=== PATIENT | female | born 1955 | race Caucasian/White ===

== ENCOUNTER 2017-10-10 19:00 | Inpatient (IN) | payer OTHER, MEDICAID, MEDICARE ==
[~2017-10-10] VITALS: Ht 170.2 cm; Wt 80.2 kg
[2017-10-10 19:44] VITALS: BP 131/79; PULSE 113; RESP 20; TEMP 98.9
[2017-10-10] MEDS ORDERED: REMOVE OLD NICOTINE PATCH T-DERMAL PRN (20:00)
[2017-10-10] MEDS ORDERED: ALUMINUM/MAGNESIUM/SIMETH 30 ML CUP PO PRN (20:00)
[2017-10-10] MEDS ORDERED: MAGNESIUM HYDROXIDE SUSP 30 ML CUP PO PRN (20:00)
[2017-10-10] MEDS ORDERED: NICOTINE 21 MG/24 HR PATCH T-DERMAL PRN (20:00)
[2017-10-10] MEDS ORDERED: DEXTROSE 50% IN WATER 50 ML VIAL(D50) IV PUSH PRN (22:00)
[2017-10-10] MEDS ORDERED: FLUMAZENIL 0.5 MG/5 ML VIAL IV PUSH PRN (22:00)
[2017-10-10] MEDS ORDERED: LORazepam 1 MG TAB PO PRN (22:00)
[2017-10-10] MEDS ORDERED: LORazepam 2 MG/ML VIAL IM PRN ×4 (22:00)
[2017-10-10] MEDS ORDERED: GLUCAGON 1 MG/ML VIAL OTHER PRN (22:00)
[2017-10-10] MEDS ORDERED: LORazepam 2 MG TAB PO PRN (22:00)
[2017-10-11] MEDS: ACETAMINOPHEN 325 MG TAB PO PRN ×2 (00:42→06:46)
[2017-10-11] MEDS ORDERED: LOW DOSE INSULIN NOVOLOG SUPPLEMENTAL SCALE SQ SCH (08:00)
[2017-10-11 09:00] LABS: AUTOMATED NEUTROPHIL # 7.3 TH/MM3 (1.8-7.7); BASOPHIL % 0.3 % (0.0-2.0); EOSINOPHIL # 0.1 TH/MM3 (0-0.4); EOSINOPHIL % 0.7 % (0.0-4.0); HEMATOCRIT 48.3 % (35.0-46.0); HEMOGLOBIN 16.8 GM/DL (11.6-15.3); LYMPH % 27.4 % (9.0-44.0); LYMPHOCYTE # 3.1 TH/MM3 (1.0-4.8); MEAN CELL VOLUME 92.1 FL (80.0-100.0); MEAN CORPUSCULAR HEMOGLOBIN 32.1 PG (27.0-34.0); MEAN CORPUSCULAR HGB CONC 34.8 % (32.0-36.0); MEAN PLATELET VOLUME 7.9 FL (7.0-11.0); MONO % 8.1 % (0.0-8.0); MONOCYTE # 0.9 TH/MM3 (0-0.9); NEUT % 63.5 % (16.0-70.0); PLATELET COUNT 268 TH/MM3 (150-450); RED BLOOD COUNT 5.24 MIL/MM3 (4.00-5.30); RED CELL DISTRIBUTION WIDTH 13.4 % (11.6-17.2); WHITE BLOOD COUNT 11.4 TH/MM3 (4.0-11.0)
[2017-10-11 09:25] LABS: ALBUMIN 4.1 GM/DL (3.4-5.0); AST (GOT) 9 U/L (15-37); BICARBONATE 27.5 MEQ/L (21.0-32.0); BLOOD UREA NITROGEN 8 MG/DL (7-18); CALCIUM 9.5 MG/DL (8.5-10.1); CHLORIDE 96 MEQ/L (98-107); GLOMERULAR FILTRATION RATE 85 ML/MIN (>89); GLUCOSE,RANDOM 238 MG/DL (74-106); SODIUM (NA) 132 MEQ/L (136-145)
[2017-10-11 09:26] LABS: ALT (GPT) 16 U/L (10-53); CHOLESTEROL 194 MG/DL (120-200); TRIGLYCERIDES 192 MG/DL (42-150)
[2017-10-11 09:36] LABS: ALKALINE PHOSPHATASE 115 U/L (45-117); CHOLESTEROL/ HDL RATIO 4.67 RATIO; HDL CHOLESTEROL 41.5 MG/DL (40.0-60.0); LDL CHOLESTEROL 114 MG/DL (0-99); TOTAL BILIRUBIN ADULT 0.7 MG/DL (0.2-1.0); TOTAL PROTEIN 8.2 GM/DL (6.4-8.2)
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
[2017-10-11 16:54] LABS: HEMOGLOBIN A1C 11.2 % (4.3-6.0)
== END 2017-10-11 11:35 | disposition home or self-care (01) | DRG 882 ==
LOC: H250 19:00
PROVIDERS: ADMIT Psychiatry & Neurology Psychiatry; ATTEND Psychiatry & Neurology Psychiatry
DX: F43.25 Adjustment disorder with mixed disturbance of emotions and conduct (principal); F31.9 Bipolar disorder, unspecified; Z62.810 Personal history of physical and sexual abuse in childhood; Z72.0 Tobacco use
CPT/HCPCS: 80053; 80061; 82948; 83036; 84443; 85025; J1815

== ENCOUNTER 2017-12-30 17:18 | Inpatient (IN) | payer OTHER, MEDICAID, MEDICARE ==
[~2017-12-30] VITALS: Ht 167.6 cm; Wt 86.8 kg
[2017-12-30] VITALS (11 sets, daily range): BP systolic 82–118; BP diastolic 48–63; PULSE 74–145; RESP 16–20; TEMP 97.8; O2SAT 93–98
--- NOTE | 2017-12-30 17:28 | PD ---
HPI Chief Complaint: General Weakness Time Seen by Provider: 17:27 Travel History International Travel<30 days: No Contact w/Intl Traveler<30days: No Traveled to known affect area: No History of Present Illness HPI Patient is brought in by daughter, who states that the patient has been to [facility] multiple times in the past 2 months due to falls and brain bleeds. However she was offered rehab but declined it. Now over the past 2-3 days the patient has had progressively worsening and increasing generalized weakness and drowsiness and lethargy. Patient denies family also denies any fever, cough, rash, chest pain, abdominal pain, flank pain, back pain , nausea, vomiting or diarrhea. However the patient and the family both state that she spends most of her time sleeping and has not really eaten well over the past 3 days. 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 So she has started to take her medications away especially the ones that are sedatives such as Ambien trazodone and benzodiazepine as well which her psychiatrist is prescribing Dr. King PCP No known drug allergy Past medical history significant for tonsillectomy, recent falls with blunt head trauma, PFS Past Medical History Cardiovascular Problems: No Genitourinary: No Musculoskeletal: Yes (uses ww) Neurologic: No Reproductive: No Respiratory: No Past Surgical History Abdominal Surgery: No Cardiac Surgery: No Ear Surgery: No Endocrine Surgery: No Eye Surgery: No Genitourinary Surgery: No Gynecologic Surgery: No Oral Surgery: Yes (Tonsillectomy) Thoracic Surgery: Yes Social History Tobacco Use: Yes Substance Use: No Allergies-Medications (Allergen,Severity, Reaction): Coded Allergies: No Known Allergies (Verified Allergy, Unknown, 12/30/17) Uncoded Allergies: NKA (Allergy, Unknown, 04/30/03) NKDA (Allergy, Unknown, 04/30/03) Reported Meds & Prescriptions Reported Meds & Active Scripts Active Reported Clonazepam 2 Mg Tab 2 Mg PO TID Aripiprazole 15 Mg Tab 15 Mg PO DAILY Levetiracetam 500 Mg Tab 500 Mg PO BID Metformin (Metformin HCl) 1,000 Mg Tab 1,000 Mg PO BIDPC Trazodone (Trazodone HCl) 150 Mg Tablet 150 Mg PO BID [Setzima] 120 Mg PO DAILY Atorvastatin (Atorvastatin Calcium) 10 Mg Tab 10 Mg PO HS Ambien (Zolpidem Tartrate) 10 Mg Tab 10 Mg PO HS PRN Meclizine (Meclizine HCl) 12.5 Mg Tab 12.5 Mg PO BID PRN Review of Systems ROS Limitations: Altered Mental Status General / Constitutional: No: Fever Eyes: No: Visual changes HENT: No: Headaches Cardiovascular: No: Chest Pain or Discomfort Respiratory: No: Shortness of Breath Gastrointestinal: No: Abdominal Pain Genitourinary: No: Dysuria Musculoskeletal: No: Pain Skin: No Rash Neurologic: Positive: Weakness, Change in Mentation Psychiatric: No: Depression Endocrine: No: Polydipsia Hematologic/Lymphatic: No: Easy Bruising Physical Exam Exam Limitations: Altered Mental Status Narrative GENERAL: SKIN: Warm and dry. HEAD: Atraumatic. Normocephalic. EYES: Pupils equal and round. No scleral icterus. No injection or drainage. ENT: No nasal bleeding or discharge. Mucous membranes pink BUT dry oral mucosa NECK: Trachea midline. No JVD. CARDIOVASCULAR: Tachycardic rate and regular rhythm. RESPIRATORY: No accessory muscle use. Clear to auscultation. Breath sounds equal bilaterally. GASTROINTESTINAL: Abdomen soft, non-tender, nondistended. Hepatic and splenic margins not palpable. MUSCULOSKELETAL: Extremities without clubbing, cyanosis, or edema. No obvious deformities. NEUROLOGICAL: Patient is arousable but is very drowsy and somnolent. PSYCHIATRIC: Appropriate mood and affect; insight and judgment normal. Data Data Last Documented VS Vital Signs Date Time Temp Pulse Resp B/P (MAP) Pulse Ox O2 Delivery O2 Flow Rate FiO2 12/30/17 19:31 Nasal Cannula 3.00 12/30/17 19:21 86 16 97/63 (74) 96 12/30/17 17:23 97.8 Orders Orders Sepsis Workup Initiated (12/30/17 ) Electrocardiogram (12/30/17 17:29) Complete Blood Count With Diff (12/30/17:) Comprehensive Metabolic Panel (12/30/17 17) Prothrombin Time / Inr (Pt) (12/30/17 17:) Act Partial Throm Time (Ptt) (12/30/17 17:29) Lactic Acid Sepsis Protocol (12/30/17 17) Lipase (12/30/17) Ckmb (Isoenzyme) Profile (12/30/17:) Troponin I (12/30/17) Urinalysis - C+S If Indicated (12/30/17) Influenzae A/B Antigen (12/30/17) Blood Culture (12/30/17) Chest, Single Ap (12/30/17) Blood Glucose (12/30/17) Ecg Monitoring (12/30/17) Iv Access Insert/Monitor (12/30/17) Oximetry (12/30/17) Oxygen Administration (12/30/17) Ct Brain W/O Iv Contrast(Rout) (12/30/17) Sodium Chlorid 0.9% 500 Ml Inj (Ns 500 M (12/30/17 18:00) Cath For Specimen (12/30/17 17:51) Alcohol (Ethanol) (12/30/17 17:52) Salicylates (Aspirin) (12/30/17 17:52) Tylenol (Acetaminophen) (12/30/17 17:52) Drug Screen, Random Urine (12/30/17 17:52) Urinary Catheter Insert/Apply (12/30/17 18:44) Sodium Chlor 0.9% 1000 Ml Inj (Ns 1000 M (12/30/17 19:15) Sodium Chlor 0.9% 1000 Ml Inj (Ns 1000 M (12/30/17 19:15) Arterial Blood Gas (Abg) (12/30/17 19:03) Labs Laboratory Tests Test 12/30/17 17:40 12/30/17 18:38 12/30/17 19:15 White Blood Count 6.7 TH/MM3 Red Blood Count 4.68 MIL/MM3 Hemoglobin 14.9 GM/DL Hematocrit 42.4 % Mean Corpuscular Volume 90.5 FL Mean Corpuscular Hemoglobin 31.9 PG Mean Corpuscular Hemoglobin Concent 35.2 % Red Cell Distribution Width 12.6 % Platelet Count 305 TH/MM3 Mean Platelet Volume 8.9 FL Neutrophils (%) (Auto) 48.0 % Lymphocytes (%) (Auto) 42.5 % Monocytes (%) (Auto) 6.9 % Eosinophils (%) (Auto) 1.7 % Basophils (%) (Auto) 0.9 % Neutrophils # (Auto) 3.2 TH/MM3 Lymphocytes # (Auto) 2.8 TH/MM3 Monocytes # (Auto) 0.5 TH/MM3 Eosinophils # (Auto) 0.1 TH/MM3 Basophils # (Auto) 0.1 TH/MM3 CBC Comment DIFF FINAL Differential Comment Prothrombin Time 10.8 SEC Prothromb Time International Ratio 1.1 RATIO Activated Partial Thromboplast Time 24.1 SEC Blood Urea Nitrogen 5 MG/DL Creatinine 0.64 MG/DL Random Glucose 298 MG/DL Total Protein 7.2 GM/DL Albumin 3.5 GM/DL Calcium Level 9.0 MG/DL Alkaline Phosphatase 86 U/L Aspartate Amino Transf (AST/SGOT) 16 U/L Alanine Aminotransferase (ALT/SGPT) 27 U/L Total Bilirubin 0.6 MG/DL Sodium Level 138 MEQ/L Potassium Level 2.7 MEQ/L Chloride Level 104 MEQ/L Carbon Dioxide Level 24.1 MEQ/L Anion Gap 10 MEQ/L Estimat Glomerular Filtration Rate 94 ML/MIN Lactic Acid Level 1.4 mmol/L Total Creatine Kinase 35 U/L Troponin I LESS THAN 0.02 NG/ML Lipase 67 U/L Ethyl Alcohol Level LESS THAN 3 MG/DL Urine Color YELLOW Urine Turbidity CLEAR Urine pH 5.5 Urine Specific [place] LESS/EQUAL 1.005 Urine Protein NEG mg/dL Urine Glucose (UA) 250 mg/dL Urine Ketones 15 mg/dL Urine Occult Blood NEG Urine Nitrite NEG Urine Bilirubin NEG Urine Urobilinogen 0.2 MG/DL Urine Leukocyte Esterase NEG Urine WBC 0-2 /hpf Urine Squamous Epithelial Cells 0-5 /hpf Microscopic Urinalysis Comment CULT NOT INDICATED Urine Opiates Screen NEG Urine Barbiturates Screen NEG Urine Amphetamines Screen NEG Urine Benzodiazepines Screen NEG Urine Cocaine Screen NEG Urine Cannabinoids Screen NEG Blood Gas Puncture Site RT BRACHIAL Blood Gas Patient Temperature 98.6 Blood Gas HCO3 25 mmol/L Blood Gas Base Excess 1.1 mmol/L Blood Gas Oxygen Saturation 87 % Arterial Blood pH 7.40 Arterial Blood Partial Pressure CO2 42 mmHG Arterial Blood Partial Pressure O2 61 mmHG Arterial Blood Oxygen Content 16.0 Vol % Arterial Blood Carboxyhemoglobin 5.9 % Arterial Blood Methemoglobin 1.3 % Blood Gas Hemoglobin 13.1 G/DL Blood Gas Inspired Oxygen 21 % MDM Medical Decision Making Medical Screen Exam Complete: Yes Emergency Medical Condition: Yes Medical Record Reviewed: Yes Interpretation(s) EKG shows sinus tachycardia, 119 bpm, normal intervals, some baseline motion artifact is difficult to see if it is secondary to that versus some actual minimal ST depressions on the lateral leads. However there is no evidence of any ST elevation VT pattern noted. ABG on room air shows pH of 7.402 PCO2 of 41.6 PaO2 61.1 of note the patient's carboxyhemoglobin was 5.9 which is elevated. But the patient is known to be smoker. Differential Diagnosis Dehydration versus anemia versus intracranial hemorrhage versus sedative hypnotic overuse versus sepsis versus pneumonia versus UTI versus electrolyte abnormalities Narrative Course UA shows glucosuria without any evidence of UTI Coagulation profile is within normal limits CBC shows no leukocytosis, no anemia, normal platelet count and no left shift Negative flu test Chemistry shows hypokalemia of 2.7, random glucose of 288 without any anion gap. Lactic acid is normal 1.4 First set of cardiac enzymes negative, Normal kidney liver and pancreatic functions Chest x-ray read by radiologist as no acute disease Head CT read by radiologist as acute on chronic right subdural hematoma without any midline shift. Critical Care Narrative Aggregate critical care time was 30 minutes. Time to perform other separately billable procedures was not included in the critical care time. My time did not include minutes spent treating any other patients simultaneously or on activities that did not directly contribute to the patient's treatment. The services I provided to this patient were to treat and/or prevent clinically significant deterioration that could result in: [Deterioration] I provided critical care services requiring my management, as noted below: Chart data review, documentation time, medication orders and management, vital sign assessments/reviewing monitor data, ordering and reviewing lab tests, ordering and interpreting/reviewing x-rays and diagnostic studies, care of the patient and discussion of the patient with the admitting physicians. Physician Communication Physician Communication Discussed the case fully with Dr. 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 Diagnosis Primary Impression: Altered mental status Additional Impressions: Acute on chronic subdural without midline shift Hypokalemia Galileo Mckeon MD December 30, 2017 17:28
[2017-12-30] MEDS ORDERED: SODIUM CHLORID 0.9% 500 ML INJ 500 ML IV ONE (18:00)
--- NOTE | 2017-12-30 18:02 | RADRPT ---
EXAM DATE/TIME: 12/30/2017 17:42 [facility] COMPARISON: No previous studies available for comparison. INDICATIONS : Shortnes of breath and general weakness. MEDICAL HISTORY : None. SURGICAL HISTORY : None. ENCOUNTER: Initial ACUITY: 1 day PAIN SCORE: 0/10 LOCATION: Bilateral chest FINDINGS: A single view of the chest demonstrates the lungs to be symmetrically aerated without evidence of mas s, infiltrate or effusion. The cardiomediastinal contours are unremarkable. Osseous structures are intact. CONCLUSION: No acute disease. Mitch Nix MD on December 30, 2017 at 17:59 Board Certified Radiologist. This report was verified electronically.
[2017-12-30 18:13] LABS: AUTOMATED NEUTROPHIL # 3.2 TH/MM3 (1.8-7.7); BASOPHIL # 0.1 TH/MM3 (0-0.2); BASOPHIL % 0.9 % (0.0-2.0); EOSINOPHIL # 0.1 TH/MM3 (0-0.4); EOSINOPHIL % 1.7 % (0.0-4.0); HEMATOCRIT 42.4 % (35.0-46.0); HEMOGLOBIN 14.9 GM/DL (11.6-15.3); LYMPH % 42.5 % (9.0-44.0); LYMPHOCYTE # 2.8 TH/MM3 (1.0-4.8); MEAN CELL VOLUME 90.5 FL (80.0-100.0); MEAN CORPUSCULAR HEMOGLOBIN 31.9 PG (27.0-34.0); MEAN CORPUSCULAR HGB CONC 35.2 % (32.0-36.0); MEAN PLATELET VOLUME 8.9 FL (7.0-11.0); MONO % 6.9 % (0.0-8.0); MONOCYTE # 0.5 TH/MM3 (0-0.9); PLATELET COUNT 305 TH/MM3 (150-450); RED BLOOD COUNT 4.68 MIL/MM3 (4.00-5.30); RED CELL DISTRIBUTION WIDTH 12.6 % (11.6-17.2); WHITE BLOOD COUNT 6.7 TH/MM3 (4.0-11.0)
--- NOTE | 2017-12-30 18:15 | RADRPT ---
EXAM DATE/TIME: 12/30/2017 17:57 [facility] COMPARISON: No previous studies available for comparison. INDICATIONS : General weakness. Altered mental status. RADIATION DOSE: 55.58 CTDIvol (mGy) MEDICAL HISTORY : Hx of recent ICH. SURGICAL HISTORY : None. ENCOUNTER: Initial ACUITY: 1 day PAIN SCALE: Non-responsive LOCATION: cranial TECHNIQUE: Multiple contiguous axial images were obtained of the head. Using automated exposure control and adj ustment of the mA and/or kV according to patient size, radiation dose was kept as low as reasonably a chievable to obtain optimal diagnostic quality images. DICOM format image data is available electro nically for review and comparison. FINDINGS: CEREBRUM: There is an acute on chronic subdural fluid collection on the right. It is largely CSF density but th ere is linear scattered areas of high attenuation consistent with more acute blood. The this fluid co llection reaches a maximum thickness of 1.5 cm. And overlies the frontal and parietal lobe particular ly near the vertex. The ventricles are normal for age. No evidence of midline shift, mass lesion, or acute infarction. No extra-axial fluid collections are seen. POSTERIOR FOSSA: The cerebellum and brainstem are intact. The 4th ventricle is midline. The cerebellopontine angle i s unremarkable. EXTRACRANIAL: The visualized portion of the orbits is intact. SKULL: The calvaria is intact. No evidence of skull fracture. CONCLUSION: 1. Acute on chronic right subdural hematoma. Vikash Staley Jr., MD on December 30, 2017 at 18:10 Board Certified Radiologist. This report was verified electronically.
[2017-12-30 18:30] LABS: INTERNATIONAL NORMALIZED RATIO 1.1 RATIO; PROTHROMBIN TIME - PATIENT 10.8 SEC (9.8-11.6)
[2017-12-30 18:43] LABS: ALBUMIN 3.5 GM/DL (3.4-5.0); ALKALINE PHOSPHATASE 86 U/L (45-117); ALT (GPT) 27 U/L (10-53); AST (GOT) 16 U/L (15-37); BICARBONATE 24.1 MEQ/L (21.0-32.0); BLOOD UREA NITROGEN 5 MG/DL (7-18); CHLORIDE 104 MEQ/L (98-107); CREATININE 0.64 MG/DL (0.50-1.00); GLOMERULAR FILTRATION RATE 94 ML/MIN (>89); GLUCOSE,RANDOM 298 MG/DL (74-106); SODIUM (NA) 138 MEQ/L (136-145); TOTAL BILIRUBIN ADULT 0.6 MG/DL (0.2-1.0); TOTAL PROTEIN 7.2 GM/DL (6.4-8.2); TROPONIN I LESS THAN 0.02 NG/ML (0.02-0.05)
[2017-12-30 18:43] LABS: BILIRUBIN, URINE NEG (NEG); BLOOD, URINE NEG (NEG); GLUCOSE,URINE 250 mg/dL (NEG); KETONE, URINE 15 mg/dL (NEG); NITRITE,URINE NEG (NEG); PH, URINE 5.5 (5.0-8.5); URINE COLOR YELLOW (YELLW/STRAW); URINE LEUKOCYTE ESTERASE NEG (NEG)
[2017-12-30] MEDS ORDERED: TRAZ1TAB14 PO (18:44)
[2017-12-30] MEDS ORDERED: AMBI10TA PO (18:44)
[2017-12-30] MEDS ORDERED: MECL12.574 PO (18:44)
[2017-12-30] MEDS ORDERED: ATOR10TA15 PO (18:44)
[2017-12-30] MEDS ORDERED: METF1000 PO (18:44)
[2017-12-30] MEDS ORDERED: ARIP1TAB13 PO (18:44)
[2017-12-30] MEDS ORDERED: LEVE500T8 PO (18:44)
[2017-12-30] MEDS ORDERED: CLON2TAB PO (18:44)
[2017-12-30] MEDS ORDERED: [UNRECOGNIZED DRUG - OTHER] PO (18:44)
[2017-12-30 19:07] LABS: SQUAMOUS EPITHELIAL CELL URINE 0-5 /hpf (0-5); WBC, URINE 0-2 /hpf (0-5)
[2017-12-30] MEDS ORDERED: SODIUM CHLOR 0.9% 1000 ML INJ 1,000 ML IV ONE ×2 (19:15)
[2017-12-30] MEDS ORDERED: MAGNESIUM HYDROXIDE SUSP 30 ML CUP PO PRN (19:45)
[2017-12-30] MEDS ORDERED: METOCLOPRAMIDE HCL 10 MG/2 ML VIAL IV PUSH PRN (19:45)
[2017-12-30] MEDS ORDERED: LACTULOSE SYRUP 20 GM/30 ML CUP PO PRN (19:45)
[2017-12-30] MEDS ORDERED: BISACODYL 10 MG SUPP RECTAL PRN (19:45)
[2017-12-30] MEDS ORDERED: GLUCAGON 1 MG/ML VIAL OTHER PRN (19:45)
[2017-12-30] MEDS ORDERED: SENNOSIDES 8.6 MG TAB PO PRN (19:45)
[2017-12-30] MEDS ORDERED: DEXTROSE 50% IN WATER 50 ML VIAL(D50) IV PUSH PRN (19:45)
[2017-12-30] MEDS ORDERED: SODIUM CHLORIDE 0.9% FLUSH 10 ML FLUSH IV FLUSH PRN ×2 (19:45→20:00)
[2017-12-30] MEDS ORDERED: SODIUM PHOSPHATE INJ 30 MMOL in SODIUM CHLOR 0.9% 250 ML INJ 240 ML IV PRN (20:00)
[2017-12-30] MEDS ORDERED: POTASSIUM PHOSPHATE INJ 30 MMOL in SODIUM CHLOR 0.9% 250 ML INJ 250 ML IV PRN (20:00)
[2017-12-30] MEDS ORDERED: POTASSIUM PHOSPHATE MONOBASIC 500 MG TAB PO/TUBE PRN (20:00)
[2017-12-30] MEDS ORDERED: MAGNESIUM SULFATE INJ 2 GM in SODIUM CHLORIDE 0.9% INJ 96 ML IV PRN (20:00)
[2017-12-30] MEDS ORDERED: RESP: ALBUTEROL 2.5 MG/3 ML NEB (PRN) INH (20:00)
[2017-12-30] MEDS ORDERED: POTASSIUM CHLOR 20 MEQ PREMIX 100 ML IV ONE (20:00)
[2017-12-30] MEDS ORDERED: MAGNESIUM SULFATE INJ 4 GM in SODIUM CHLORIDE 0.9% INJ 92 ML IV PRN (20:00)
[2017-12-30] MEDS ORDERED: NURSING INFORMATION XX SCH (20:00)
[2017-12-30] MEDS ORDERED: POTASSIUM PHOSPHATE MONOBASIC 500 MG TAB PO PRN (20:00)
[2017-12-30] MEDS ORDERED: CHLORHEXIDINE GLUCONATE 2 % 1 PACK (2 CLOTHS) TOP PRN (20:00)
[2017-12-30] MEDS ORDERED: POTASSIUM CHLOR 20 MEQ PREMIX 100 ML IV PRN ×2 (20:00)
[2017-12-30] MEDS ORDERED: POTASSIUM CHLOR 40 MEQ PREMIX 100 ML IV PRN ×2 (20:00)
[2017-12-30] MEDS ORDERED: MAGNESIUM OXIDE 400 MG TAB PO PRN (20:00)
[2017-12-30] MEDS ORDERED: POTASSIUM CHLORIDE 25 MEQ EFFERVESCENT TAB PO PRN (20:00)
[2017-12-30] MEDS: SODIUM CHLOR 0.9% 1000 ML INJ 1,000 ML IV SCH (20:11)
--- NOTE | 2017-12-30 20:11 | HHI.HP ---
[facility] Service Critical Care Medicine Primary Care Physician Aakash Steele, DO Admission Diagnosis AMS, ACUTE ON CHRONIC SUBDURAL HEMATOMA,HYPOKALEMIA Diagnosis: (1) Acute on chronic intracranial subdural hematoma Diagnosis: Principal Travel History International Travel<30 Days: No Contact w/Intl Traveler <30 Da: No Traveled to Known Affected Are: No History of Present Illness History obtained from discussion with Dr. Mckeon and review of EMR. Patient is not able to provide significant history due to lethargy. Attempted to contact patient's daughter at [phone] and there was no answer. 52-year-old female with past medical history of bipolar disorder, diabetes, hyperlipidemia, insomnia, cocaine abuse who presented to [facility] emergency department with a 2-3 day history of lethargy. She has recently been admitted ( last 2-3 months) to [facility] for falls with subdural hematoma and had reportedly refused rehab. Workup at [facility] included CT brain that demonstrated 1.5 cm chronic subdural with some acute component, without midline shift. She is not on any anticoagulant or antiplatelet therapy. Coags and platelet counts are normal. Urine drug screen and alcohol level are negative. She is also on trazodone, klonopin, and ambien prescribed by her psychiatrist and her daughter had expressed concern to Dr. Mckeon that she was overmedicated. She has had little to eat over the last 3 days. Review of Systems ROS Limitations: Clinical Condition, Altered Mental Status Past Family Social History Allergies: Coded Allergies: No Known Allergies (Verified Allergy, Unknown, 12/30/17) Uncoded Allergies: NKA (Allergy, Unknown, 04/30/03) NKDA (Allergy, Unknown, 04/30/03) Past Medical History Bipolar disorder with prior admission for suicidal tendencies in 2002 Hyperlipidemia Diabetes mellitus Past Surgical History Appendectomy Reported Medications Atorvastatin 10 mg p.o. nightly Klonopin 2 mg p.o. 3 times daily Keppra 500 mg p.o. twice daily Trazodone 150 mg p.o. twice daily Aripiprazole 15 mg p.o. daily Ambien 10 mg p.o. nightly Meclizine 12.5 mill grams p.o. twice daily as needed for vertigo Metformin 1000 mg p.o. twice daily Fetzima 120 mill grams p.o. daily Family History Unable to obtain from patient due to clinical condition. Records from most recent psych admission indicates family h/o dementia. Social History Unable to obtain from patient due to clinical condition. Prior history of cocaine abuse noted in EMR She has history of tobacco abuse. Unknown if this is ongoing. Physical Exam Vital Signs Vital Signs Date Time Temp Pulse Resp B/P (MAP) Pulse Ox O2 Delivery O2 Flow Rate FiO2 12/30/17 19:31 Nasal Cannula 3.00 12/30/17 19:21 86 16 97/63 (74) 96 Room Air 12/30/17 19:00 90/60 (70) 12/30/17 17:49 93 Room Air 12/30/17 17:49 93 Room Air 12/30/17 17:41 135 90 Room Air 12/30/17 17:23 97.8 145 20 118/54 (75) 94 Physical Exam GENERAL: Sleepy female who is laying in ISC bed on nasal cannula. SKIN: Warm and dry. There is an abrasion overlying her left knee. HEAD: Atraumatic. Normocephalic. EYES: Pupils equal and round, 5 mm and reactive to 2 mm bilaterally.. No scleral icterus. No injection or drainage. ENT: No nasal bleeding or discharge. Mucous membranes dry NECK: Trachea midline. No JVD. CARDIOVASCULAR: Regular rate and rhythm, sinus rhythm on the monitor with rate in the 60. No murmurs rubs or gallops. RESPIRATORY: Breathing comfortably with no accessory muscle use. She is occasionally snoring but arouses to voice. No wheezes rales or rhonchi. On nasal cannula. GASTROINTESTINAL: Abdomen soft, non-tender, nondistended. Bowel sounds present. : Pat[place] in place with 400 ml of light yellow urine in the bag. MUSCULOSKELETAL: Extremities without clubbing, cyanosis, or edema. No obvious deformities. NEUROLOGICAL: Lethargic, opens eyes to voice, briefly makes eye contact and closes eyes again.. Follows commands by squeezing hands and moving legs bilaterally. She will not cooperate with pronator drift. She mumbles a few words but does not answer questions of orientation appropriately. DTRs are 2+ patellar bilaterally. No abnormal response to Babinski . No clonus. Laboratory Laboratory Tests Test 12/30/17 17:40 12/30/17 18:38 12/30/17 19:15 White Blood Count 6.7 Red Blood Count 4.68 Hemoglobin 14.9 Hematocrit 42.4 Mean Corpuscular Volume 90.5 Mean Corpuscular Hemoglobin 31.9 Mean Corpuscular Hemoglobin Concent 35.2 Red Cell Distribution Width 12.6 Platelet Count 305 Mean Platelet Volume 8.9 Neutrophils (%) (Auto) 48.0 Lymphocytes (%) (Auto) 42.5 Monocytes (%) (Auto) 6.9 Eosinophils (%) (Auto) 1.7 Basophils (%) (Auto) 0.9 Neutrophils # (Auto) 3.2 Lymphocytes # (Auto) 2.8 Monocytes # (Auto) 0.5 Eosinophils # (Auto) 0.1 Basophils # (Auto) 0.1 CBC Comment DIFF FINAL Differential Comment Prothrombin Time 10.8 Prothromb Time International Ratio 1.1 Activated Partial Thromboplast Time 24.1 Blood Urea Nitrogen 5 Creatinine 0.64 Random Glucose 298 Total Protein 7.2 Albumin 3.5 Calcium Level 9.0 Alkaline Phosphatase 86 Aspartate Amino Transf (AST/SGOT) 16 Alanine Aminotransferase (ALT/SGPT) 27 Total Bilirubin 0.6 Sodium Level 138 Potassium Level 2.7 Chloride Level 104 Carbon Dioxide Level 24.1 Anion Gap 10 Estimat Glomerular Filtration Rate 94 Lactic Acid Level 1.4 Total Creatine Kinase 35 Troponin I LESS THAN 0.02 Lipase 67 Ethyl Alcohol Level LESS THAN 3 Urine Color YELLOW Urine Turbidity CLEAR Urine pH 5.5 Urine Specific [place] LESS/EQUAL 1.005 Urine Protein NEG Urine Glucose (UA) 250 Urine Ketones 15 Urine Occult Blood NEG Urine Nitrite NEG Urine Bilirubin NEG Urine Urobilinogen 0.2 Urine Leukocyte Esterase NEG Urine WBC 0-2 Urine Squamous Epithelial Cells 0-5 Microscopic Urinalysis Comment CULT NOT INDICATED Urine Opiates Screen NEG Urine Barbiturates Screen NEG Urine Amphetamines Screen NEG Urine Benzodiazepines Screen NEG Urine Cocaine Screen NEG Urine Cannabinoids Screen NEG Blood Gas Puncture Site RT BRACHIAL Blood Gas Patient Temperature 98.6 Blood Gas HCO3 25 Blood Gas Base Excess 1.1 Blood Gas Oxygen Saturation 87 Arterial Blood pH 7.40 Arterial Blood Partial Pressure CO2 42 Arterial Blood Partial Pressure O2 61 Arterial Blood Oxygen Content 16.0 Arterial Blood Carboxyhemoglobin 5.9 Arterial Blood Methemoglobin 1.3 Blood Gas Hemoglobin 13.1 Blood Gas Inspired Oxygen 21 Date/Time Source Procedure Growth Status 12/30/17 17:40 Blood Peripheral Aerobic Blood Culture Pending Received 12/30/17 17:40 Blood Peripheral Anaerobic Blood Culture Pending Received 12/30/17 17:40 Nasal Washing Influenza Types A,B Antigen (BEATRIZ) - Final NEGATIVE FOR FLU A AND B ANTIGEN.... Complete Result Diagram: 12/30/17173912/30/171739 Caprini VTE Risk Assessment Caprini VTE Risk Assessment: Mod/High Risk (score >= 2) VTE Pharm Contraindication: Documented Caprini Risk Assessment Model Point Value = 1 Point Value = 2 Point Value = 3 Point Value = 5 Age 41-60 Minor surgery BMI > 25 kg/m2 Swollen legs Varicose veins or History of unexplained or recurrent spontaneous Oral contraceptives or hormone replacement Sepsis (< 1 month) Serious lung disease, including pneumonia (< 1 month) Abnormal pulmonary function Acute myocardial infarction Congestive heart failure (< 1 month) History of inflammatory bowel disease Medical patient at bed rest Age 61-74 Arthroscopic surgery Major open surgery (> 45 min) Laparoscopic surgery (> 45 min) Malignancy Confined to bed (> 72 hours) Immobilizing plaster cast Central venous access Age >= 75 History of VTE Family history of VTE Factor V Leiden Prothrombin [id number] Lupus anticoagulant Anticardiolipin antibodies Elevated serum homocysteine Heparin-induced thrombocytopenia Other congenital or acquired thrombophilia Stroke (< 1 month) Elective arthroplasty Hip, pelvis, or leg fracture Acute spinal cord injury (< 1 month) Prophylaxis Regimen Total Risk Factor Score Risk Level Prophylaxis Regimen 0-1 Low Early ambulation 2 Moderate Order ONE of the following: *Sequential Compression Device (SCD) *Heparin 5000 units SQ BID 3-4 Higher Order ONE of the following medications: *Heparin 5000 units SQ TID *Enoxaparin/Lovenox 40 mg SQ daily (WT < 150 kg, CrCl > 30 mL/min) *Enoxaparin/Lovenox 30 mg SQ daily (WT < 150 kg, CrCl > 10-29 mL/min) *Enoxaparin/Lovenox 30 mg SQ BID (WT < 150 kg, CrCl > 30 mL/min) AND/OR *Sequential Compression Device (SCD) 5 or more Highest Order ONE of the following medications: *Heparin 5000 units SQ TID (Preferred with Epidurals) *Enoxaparin/Lovenox 40 mg SQ daily (WT < 150 kg, CrCl > 30 mL/min) *Enoxaparin/Lovenox 30 mg SQ daily (WT < 150 kg, CrCl > 10-29 mL/min) *Enoxaparin/Lovenox 30 mg SQ BID (WT < 150 kg, CrCl > 30 mL/min) AND *Sequential Compression Device (SCD) Assessment and Plan Problem List: (1) Bipolar disorder ICD Code: F31.9 - Bipolar disorder, unspecified Status: Chronic (2) Acute on chronic intracranial subdural hematoma ICD Code: I62.01 - Nontraumatic acute subdural hemorrhage; I62.03 - Nontraumatic chronic subdural hemorrhage (3) Diabetes mellitus ICD Code: E11.9 - Type 2 diabetes mellitus without complications Status: Chronic (4) HLD (hyperlipidemia) ICD Code: E78.5 - Hyperlipidemia, unspecified Status: Chronic (5) Hypokalemia ICD Code: E87.6 - Hypokalemia Status: Acute Assessment and Plan NEURO: Acute on chronic subdural Prior history of cocaine abuse Bipolar disorder Insomnia Admit to [facility] with every hour neuro checks Follow-up imaging to be determined by Dr. Guevara Continue Keppra 500 mg p.o. twice daily Avoid hypotension, hyponatremia, hypothermia, hypoxemia Neurosurgery consultation, Dr. Guevara She does appear lethargic and medications could be contributing. Will hold for now until her mental status improves. Hold Abilify 15 mg p.o. daily, Klonopin 2 mg p.o. 3 times daily, trazodone 150 twice daily, Ambien 10 mg nightly. Tylenol and salicylate level were negative. Check ammonia level in a.m. RESP: Tobacco abuse Albuterol every 2 hours as needed for wheezing Chest x-ray clear Monitor for airway protection ABG pH 7.40/PCO2 42/PO2 61/bicarb 25 on room air On nasal cannula wean as tolerated. Incentive monitor every hour awake Tobacco cessation counseling when patient is able to cooperate CV: Hyperlipidemia Hypotension, suspect secondary to meds Monitor hemodynamics. Received 2.5 L NS bolus in the ED and BP was normal. That was 7 hours ago, now MAP is 62, appears may be sedative med related. Bolus additional 1 L NS bolus. Lactic acid normal 0.9 NaCl at 100 mL/h Continue atorvastatin 10 mg p.o. daily GI: NPO FEN/RENAL: Acute hypokalemia Check magnesium level Replace potassium per ICU electrolyte protocol. ID: Monitor for signs and symptoms of infection Urinalysis and chest x-ray are negative Afebrile, no leukocytosis. HEME: Monitor CBC Not on anticoagulants or antiplatelet therapy ENDO: Diabetes mellitus Hold metformin Monitor glucose before meals/at bedtime. Low-dose insulin sliding scale as indicated PROPH: SCD for DVT prophylaxis. Avoid pharmacologic DVT prophylaxis at this time due to acute on chronic subdural hematoma. Famotidine p.o. for stress ulcer prophylaxis. ACCESS: Peripheral IV providing adequate access at this time. Full code Discussed with Dr. Mckeon. Attempted to contact patient's daughter. There was no answer. Level 3 H&P Problem Qualifiers (1) Diabetes mellitus: Kathie Torres MD December 30, 2017 20:11
[2017-12-30 20:29] LABS: ACETAMINOPHEN LESS THAN 2.0 MCG/ML (10.0-30.0)
[2017-12-30] MEDS ORDERED: MORPHINE SULFATE 4 MG/ML INJ IV PUSH PRN (20:30)
[2017-12-30 20:31] LABS: MAGNESIUM 1.9 MG/DL (1.5-2.5)
[2017-12-30 20:35] LABS: PHOSPHORUS 3.6 MG/DL (2.5-4.9)
--- NOTE | 2017-12-30 20:47 | PD.CONS ---
HPI Service neurosurgery Consult Requested By [place] emergency room Reason for Consult Subdural hematoma Primary Care Physician Aakash Steele DO History of Present Illness This is a 52-year-old female with past medical history of bipolar disorder, diabetes, hyperlipidemia, insomnia, cocaine abuse who presented to [facility] emergency department with a 2-3 day history of lethargy. She has recently been admitted ( last 2-3 months) to [facility] for falls with subdural hematoma and had reportedly refused rehab. No seizure activity noted. No tongue bitting. No incontinence of stool or urine. Aparently she has been manageged nonoperatively at [facility] and her condition is deteriorating. She is not on any anticoagulant or antiplatelet therapy. Coags and platelet counts are normal. Urine drug screen and alcohol level are negative. She is also on trazodone, klonopin, and ambien prescribed by her psychiatrist and her daughter had expressed concern to Dr. Mckeon that she was overmedicated. CT brain that demonstrated 1.5 cm chronic subdural with some acute component, without midline shift. Neurosurgery consultation was requested Review of Systems Not possible ROS Limitations: Clinical Condition, Altered Mental Status Past Family Social History Allergies: Coded Allergies: No Known Allergies (Verified Allergy, Unknown, 12/30/17) Uncoded Allergies: NKA (Allergy, Unknown, 04/30/03) NKDA (Allergy, Unknown, 04/30/03) Past Medical History Bipolar disorder with prior admission for suicidal tendencies in 2002 Hyperlipidemia Diabetes mellitus Past Surgical History Appendectomy Reported Medications Atorvastatin 10 mg p.o. nightly Klonopin 2 mg p.o. 3 times daily Keppra 500 mg p.o. twice daily Trazodone 150 mg p.o. twice daily Aripiprazole 15 mg p.o. daily Ambien 10 mg p.o. nightly Meclizine 12.5 mill grams p.o. twice daily as needed for vertigo Metformin 1000 mg p.o. twice daily Fetzima 120 mill grams p.o. daily Active Ordered Medications Current Medications Sodium Chloride 500 ml @ 500 mls/hr BOLUS ONCE IV Last administered on at 18:23; Start 12/30/17 at 18:00; Stop 12/30/17 at 18:59; Status DC Sodium Chloride 1,000 ml @ 999 mls/hr BOLUS ONCE IV Last administered on 12/30at 19:13; Start 12/30/17 at 19:15; Stop 12/30/17 at 20:15; Status DC Sodium Chloride 1,000 ml @ 999 mls/hr BOLUS ONCE IV Last administered on 12/30at 19:14; Start 12/30/17 at 19:15; Stop 12/30/17 at 20:15; Status DC Dextrose (D50w (Vial) Inj) 50 ml UNSCH PRN IV PUSH HYPOGLYCEMIA-SEE COMMENTS; Start 12/30/17 at 19:45 Glucagon (Glucagon Inj) 1 mg UNSCH PRN OTHER HYPOGLYCEMIA-SEE COMMENTS; Start 12/30/17 at 19:45 Insulin Aspart (NovoLOG SUPPLEMENTAL SCALE) 1 ACHS SLIDING SCALE SQ Last administered on 12/30/17at 23:02; Start 12/30/17 at 21:00 Sodium Chloride 1,000 ml @ 100 mls/hr Q10H IV Last administered on 12/31/17at 04:23; Start 12/30/17 at 19:43 Sodium Chloride (NS Flush) 2 ml UNSCH PRN IV FLUSH FLUSH AFTER USING IV ACCESS ; Start 12/30/17 at 19:45; Stop 12/30/17 at 20:17; Status DC Sodium Chloride (NS Flush) 2 ml BID IV FLUSH ; Start 12/30/17 at 21:00; Stop 07/09 at 21:00; Status DC Metoclopramide HCl (Reglan Inj) 5 mg Q6H PRN IV PUSH NAUSEA OR VOMITING; Start 12/30/17 at 19:45 Acetaminophen (Tylenol) 650 mg Q6H PRN PO FEVER/PAIN SCALE 1 TO 2; Start at 19:45 Acetaminophen/ Hydrocodone Bitart ([place] 5-325 Mg) 1 tab Q4H PRN PO PAIN SCALE 3 TO 5; Start 12/30/17 at 19:45 Morphine Sulfate (Morphine Inj) 2 mg Q3H PRN IV PUSH Pain 6-10; Start 12/30/17 at 20:30 Senna/Docusate Sodium (Sandra-Colace) 1 tab BID PO Last administered on at 08:57; Start 12/30/17 at 21:00 Magnesium Hydroxide (Milk Of Magnesia Liq) 30 ml Q12H PRN PO Mild constipation ; Start 12/30/17 at 19:45 Sennosides (Senokot) 17.2 mg Q12H PRN PO Moderate constipation; Start 12/30/17 at 19:45 Bisacodyl (Dulcolax Supp) 10 mg DAILY PRN RECTAL SEVERE CONSITIPATION; Start at 19:45 Lactulose (Lactulose Liq) 30 ml DAILY PRN PO SEVERE CONSITIPATION; Start at 19:45 Aripiprazole (Abilify) 15 mg DAILY PO ; Start 12/31/17 at 09:00; Status Future Hold Atorvastatin Calcium (Lipitor) 10 mg HS PO Last administered on 12/30/17at 23:37 ; Start 12/30/17 at 21:00 Clonazepam (KlonoPIN) 2 mg TID PO ; Start 12/31/17 at 09:00; Status Future Hold Levetriacetam (Keppra) 500 mg BID PO Last administered on 12/31/17at 08:57; Start 12/30/17 at 21:00 Non-Formulary Medication 150 mg BID PO ; Start 12/30/17 at 21:00; Stop 12/30/17 at 21:00; Status DC Potassium Chloride 100 ml @ 50 mls/hr Q2H PRN IV For Potassium 2.8 - 3.2 mEq/L ; Start 12/30/17 at 20:00 Potassium Chloride 100 ml @ 50 mls/hr Q2H PRN IV For Potassium 2.8 - 3.2 mEq/L ; Start 12/30/17 at 20:00 Potassium Bicarb/ Potassium Chloride (K-Lyte Cl Eff) 50 meq UNSCH PRN PO For Potassium 3.3 - 3.5 mEq/L; Start 12/30/17 at 20:00 Potassium Chloride 100 ml @ 25 mls/hr UNSCH PRN IV For Potassium 3.3 - 3.5 mEq /L; Start 12/30/17 at 20:00 Potassium Chloride 100 ml @ 50 mls/hr Q2H PRN IV For Potassium 3.3 - 3.5 mEq/L ; Start 12/30/17 at 20:00 Magnesium Sulfate 4 gm/Sodium Chloride 100 ml @ 50 mls/hr UNSCH PRN IV For Magnesium 0.9 - 1.1 mg/dL; Start 12/30/17 at 20:00 Magnesium Oxide (Mag-Ox) 800 mg UNSCH PRN PO For Magnesium 1.2 - 1.6 mg/dL; Start 12/30/17 at 20:00 Magnesium Sulfate 2 gm/Sodium Chloride 100 ml @ 50 mls/hr UNSCH PRN IV For Magnesium 1.2 - 1.6 mg/dL; Start 12/30/17 at 20:00 Potassium Phosphate (K-Phos) 2,000 mg Q4H PRN PO For Phosphorus < 2.5 mg/dL; Start 12/30/17 at 20:00 Sodium Phosphate 30 mmol/Sodium Chloride 250 ml @ 42 mls/hr UNSCH PRN IV For Phosphorus < 2.5 mg/dL; Start 12/30/17 at 20:00 Potassium Phosphate (K-Phos) 2,000 mg UNSCH PRN PO/TUBE SEE LABEL COMMENTS; Start 12/30/17 at 20:00 Potassium Phosphate 30 mmol/ Sodium Chloride 260 ml @ 42 mls/hr UNSCH PRN IV SEE LABEL COMMENTS; Start 12/30/17 at 20:00 Potassium Chloride 100 ml @ 50 mls/hr ONCE ONCE IV Last administered on at 20:12; Start 12/30/17 at 20:00; Stop 12/30/17 at 21:59; Status DC Sodium Chloride (NS Flush) 2 ml UNSCH PRN IV FLUSH FLUSH AFTER USING IV ACCESS ; Start 12/30/17 at 20:00 Sodium Chloride (NS Flush) 2 ml BID IV FLUSH Last administered on 12/31/17at 09: 00; Start 12/30/17 at 21:00 Albuterol Sulfate (Albuterol Neb) 2.5 mg Q2HR NEB PRN INH SOB/WHEEZING; Start 12/30/17 at 20:00 Miscellaneous Information ([facility] Information) 1 Q361D XX Last administered on 12/30/17at 01:00; Start 12/30/17 at 20:00 Chlorhexidine Gluconate (Chlorhexidine 2% Cloth) 3 pack Taper DAILY@04 TOP Last administered on 12/31/17at 01:27; Start 12/31/17 at 04:00; Stop 12/27/18 at 03:59 Chlorhexidine Gluconate (Chlorhexidine 2% Cloth) 3 pack UNSCH PRN TOP HYGIENIC CARE; Start 12/30/17 at 20:00 Famotidine (Pepcid) 20 mg BID PO Last administered on 12/31/17at 08:57; Start at 21:00 Sodium Chloride 1,000 ml @ 999 mls/hr BOLUS ONCE IV Last administered on 12/31at 01:15; Start 12/31/17 at 01:15; Stop 12/31/17 at 02:15; Status DC Lactulose (Lactulose Liq) 30 ml DAILY PO Last administered on 12/31/17at 08:57; Start 12/31/17 at 09:00 Polyethylene Glycol/ Electrolytes (Colyte Liq) 4,000 ml ONCE ONCE PO Last administered on 12/31/17at 10:53; Start 12/31/17 at 10:00; Stop 12/31/17 at 10:03 ; Status DC Family History Unable to obtain from patient due to clinical condition. Records from most recent psych admission indicates family h/o dementia. Social History Unable to obtain from patient due to clinical condition. Prior history of cocaine abuse noted in EMR history of tobacco abuse. Unknown if this is ongoing. Physical Exam Vital Signs Vital Signs Date Time Temp Pulse Resp B/P (MAP) Pulse Ox O2 Delivery O2 Flow Rate FiO2 12/30/17 20:05 92 18 105/56 (72) 96 Nasal Cannula 3.00 12/30/17 19:31 Nasal Cannula 3.00 12/30/17 19:21 86 16 97/63 (74) 96 Room Air 12/30/17 19:00 90/60 (70) 12/30/17 17:49 93 Room Air 12/30/17 17:49 93 Room Air 12/30/17 17:41 135 90 Room Air 12/30/17 17:23 97.8 145 20 118/54 (75) 94 Physical Exam GENERAL: Ms Lambert is laying in bed NEUROLOGICAL: Lethargic, opens eyes to voice, Oriented to self. Follows commands by squeezing hands and moving legs bilaterally. She will not cooperate with pronator drift. She mumbles a few words but does not answer questions of orientation appropriately. DTRs are 2+ patellar bilaterally. No abnormal response to Babinski . No clonus. SKIN: Warm and dry. There is an abrasion overlying her left knee. HEAD: Atraumatic. Normocephalic. EYES: Pupils equal and round, 5 mm and reactive to 2 mm bilaterally.. No scleral icterus. No injection or drainage. ENT: No nasal bleeding or discharge. Mucous membranes dry NECK: Trachea midline. No JVD. CARDIOVASCULAR: Regular rate and rhythm, sinus rhythm on the monitor with rate in the 60. No murmurs rubs or gallops. RESPIRATORY: Breathing comfortably with no accessory muscle use. She is occasionally snoring but arouses to voice. No wheezes rales or rhonchi. On nasal cannula. GASTROINTESTINAL: Abdomen soft, non-tender, nondistended. Bowel sounds present. : Patton in place with 400 ml of light yellow urine in the bag. MUSCULOSKELETAL: Extremities without clubbing, cyanosis, or edema. No obvious deformities. Laboratory Laboratory Tests Test 12/30/17 17:40 12/30/17 18:38 12/30/17 19:15 White Blood Count 6.7 Red Blood Count 4.68 Hemoglobin 14.9 Hematocrit 42.4 Mean Corpuscular Volume 90.5 Mean Corpuscular Hemoglobin 31.9 Mean Corpuscular Hemoglobin Concent 35.2 Red Cell Distribution Width 12.6 Platelet Count 305 Mean Platelet Volume 8.9 Neutrophils (%) (Auto) 48.0 Lymphocytes (%) (Auto) 42.5 Monocytes (%) (Auto) 6.9 Eosinophils (%) (Auto) 1.7 Basophils (%) (Auto) 0.9 Neutrophils # (Auto) 3.2 Lymphocytes # (Auto) 2.8 Monocytes # (Auto) 0.5 Eosinophils # (Auto) 0.1 Basophils # (Auto) 0.1 CBC Comment DIFF FINAL Differential Comment Prothrombin Time 10.8 Prothromb Time International Ratio 1.1 Activated Partial Thromboplast Time 24.1 Blood Urea Nitrogen 5 Creatinine 0.64 Random Glucose 298 Total Protein 7.2 Albumin 3.5 Calcium Level 9.0 Alkaline Phosphatase 86 Aspartate Amino Transf (AST/SGOT) 16 Alanine Aminotransferase (ALT/SGPT) 27 Total Bilirubin 0.6 Sodium Level 138 Potassium Level 2.7 Chloride Level 104 Carbon Dioxide Level 24.1 Anion Gap 10 Estimat Glomerular Filtration Rate 94 Lactic Acid Level 1.4 Phosphorus Level 3.6 Magnesium Level 1.9 Total Creatine Kinase 35 Troponin I LESS THAN 0.02 Lipase 67 Salicylates Level 2.7 Acetaminophen Level LESS THAN 2.0 Ethyl Alcohol Level LESS THAN 3 Urine Color YELLOW Urine Turbidity CLEAR Urine pH 5.5 Urine Specific [place] LESS/EQUAL 1.005 Urine Protein NEG Urine Glucose (UA) 250 Urine Ketones 15 Urine Occult Blood NEG Urine Nitrite NEG Urine Bilirubin NEG Urine Urobilinogen 0.2 Urine Leukocyte Esterase NEG Urine WBC 0-2 Urine Squamous Epithelial Cells 0-5 Microscopic Urinalysis Comment CULT NOT INDICATED Urine Opiates Screen NEG Urine Barbiturates Screen NEG Urine Amphetamines Screen NEG Urine Benzodiazepines Screen NEG Urine Cocaine Screen NEG Urine Cannabinoids Screen NEG Blood Gas Puncture Site RT BRACHIAL Blood Gas Patient Temperature 98.6 Blood Gas HCO3 25 Blood Gas Base Excess 1.1 Blood Gas Oxygen Saturation 87 Arterial Blood pH 7.40 Arterial Blood Partial Pressure CO2 42 Arterial Blood Partial Pressure O2 61 Arterial Blood Oxygen Content 16.0 Arterial Blood Carboxyhemoglobin 5.9 Arterial Blood Methemoglobin 1.3 Blood Gas Hemoglobin 13.1 Blood Gas Inspired Oxygen 21 Date/Time Source Procedure Growth Status 12/30/17 17:40 Blood Peripheral Aerobic Blood Culture Pending Received 12/30/17 17:40 Blood Peripheral Anaerobic Blood Culture Pending Received 12/30/17 17:40 Nasal Washing Influenza Types A,B Antigen (BEATRIZ) - Final NEGATIVE FOR FLU A AND B ANTIGEN.... Complete Result Diagram: 12/30/17 1740 12/30/17 [address] 12/30/17 1729 Signed Impressions: Service Date/Time: Saturday, December 30, 2017 17:57 - CONCLUSION: 1. Acute on chronic right subdural hematoma. Vikash Staley Jr., MD Chest X-Ray 12/30/17 1729 Signed Impressions: Service Date/Time: Saturday, December 30, 2017 17:42 - CONCLUSION: No acute disease. Mitch Nix MD Problem List: (1) Bipolar disorder ICD Code: F31.9 - Bipolar disorder, unspecified Status: Chronic (2) Acute on chronic intracranial subdural hematoma ICD Code: I62.01 - Nontraumatic acute subdural hemorrhage; I62.03 - Nontraumatic chronic subdural hemorrhage (3) Diabetes mellitus ICD Code: E11.9 - Type 2 diabetes mellitus without complications Status: Chronic (4) HLD (hyperlipidemia) ICD Code: E78.5 - Hyperlipidemia, unspecified Status: Chronic (5) Hypokalemia ICD Code: E87.6 - Hypokalemia Status: Acute Acute on chronic subdural. Continue neuro checks in a serial fashion. A follow-up MRI of the head is recommended in 24 hours. Will discuss with her family the alternatives of treatment Bipolar disorder Avoid hypotension, hyponatremia, hypothermia, hypoxemia She appears lethargic and medications could be contributing. Will hold for now until her mental status improves. Hold Abilify 15 mg p.o. daily, Klonopin 2 mg p.o. 3 times daily, trazodone 150 twice daily, Ambien 10 mg nightly. Tylenol and salicylate level were negative. Check ammonia level in a.m. Tobacco abuse. Albuterol every 2 hours as needed for wheezing Chest x-ray clear Monitor for airway protection On nasal cannula wean as tolerated. Incentive monitor every hour awake Tobacco cessation counseling when patient is able to cooperate Hyperlipidemia. Continue atorvastatin 10 mg p.o. daily Hypotension, suspect secondary to meds Monitor hemodynamics. Received 2.5 L NS bolus in the ED and BP was normal. That was 7 hours ago, now MAP is 62, appears may be sedative med related. Bolus additional 1 L NS bolus. Lactic acid normal 0.9 NaCl at 100 mL/h GI: Speech pathology to recommend diet Acute hypokalemia Check magnesium level Replace potassium per ICU electrolyte protocol. ID: Monitor for signs and symptoms of infection Urinalysis and chest x-ray are negative HEME: Follow up CBC Diabetes mellitus. Hold metformin Monitor glucose before meals/at bedtime. Low-dose insulin sliding scale as indicated Gastritis. Famotidine p.o. for stress ulcer prophylaxis. Scheduled for Famotidine p.o. for stress ulcer prophylaxis. PROPH: SCD for DVT prophylaxis. Avoid pharmacologic DVT prophylaxis at this time due to acute on chronic subdural hematoma. Caprini VTE Risk Assessment: Mod/High Risk (score >= 2) VTE Pharm Contraindication: Documented Caprini Risk Assessment Model Point Value = 1 Point Value = 2 Point Value = 3 Point Value = 5 Age 41-60 Minor surgery BMI > 25 kg/m2 Swollen legs Varicose veins or History of unexplained or recurrent spontaneous Oral contraceptives or hormone replacement Sepsis (< 1 month) Serious lung disease, including pneumonia (< 1 month) Abnormal pulmonary function Acute myocardial infarction Congestive heart failure (< 1 month) History of inflammatory bowel disease Medical patient at bed rest Age 61-74 Arthroscopic surgery Major open surgery (> 45 min) Laparoscopic surgery (> 45 min) Malignancy Confined to bed (> 72 hours) Immobilizing plaster cast Central venous access Age >= 75 History of VTE Family history of VTE Factor V Leiden Prothrombin [id number] Lupus anticoagulant Anticardiolipin antibodies Elevated serum homocysteine Heparin-induced thrombocytopenia Other congenital or acquired thrombophilia Stroke (< 1 month) Elective arthroplasty Hip, pelvis, or leg fracture Acute spinal cord injury (< 1 month) Prophylaxis Regimen Total Risk Factor Score Risk Level Prophylaxis Regimen 0-1 Low Early ambulation 2 Moderate Order ONE of the following: *Sequential Compression Device (SCD) *Heparin 5000 units SQ BID 3-4 Higher Order ONE of the following medications: *Heparin 5000 units SQ TID *Enoxaparin/Lovenox 40 mg SQ daily (WT < 150 kg, CrCl > 30 mL/min) *Enoxaparin/Lovenox 30 mg SQ daily (WT < 150 kg, CrCl > 10-29 mL/min) *Enoxaparin/Lovenox 30 mg SQ BID (WT < 150 kg, CrCl > 30 mL/min) AND/OR *Sequential Compression Device (SCD) 5 or more Highest Order ONE of the following medications: *Heparin 5000 units SQ TID (Preferred with Epidurals) *Enoxaparin/Lovenox 40 mg SQ daily (WT < 150 kg, CrCl > 30 mL/min) *Enoxaparin/Lovenox 30 mg SQ daily (WT < 150 kg, CrCl > 10-29 mL/min) *Enoxaparin/Lovenox 30 mg SQ BID (WT < 150 kg, CrCl > 30 mL/min) AND *Sequential Compression Device (SCD) Nick Guevara MD December 30, 2017 20:47
[2017-12-30] MEDS ORDERED: SODIUM CHLORIDE 0.9% FLUSH 10 ML FLUSH IV FLUSH SCH (21:00)
[2017-12-30] MEDS ORDERED: NON-FORMULARY DRUG (Trazodone 150 MG) PO SCH (21:00)
[2017-12-30] MEDS: SODIUM CHLORIDE 0.9% FLUSH 10 ML FLUSH IV FLUSH SCH (21:00)
[2017-12-30] MEDS: INSULIN ASPART SUPPLEMENTAL SCALE SQ SCH (23:02)
[2017-12-30] MEDS: DOCUSATE SODIUM 50 MG/SENNA 8.6 MG TAB PO SCH (23:13)
[2017-12-30] MEDS: FAMOTIDINE 20 MG TAB PO SCH (23:13)
[2017-12-30] MEDS: levETIRAcetam 500 MG TAB PO SCH (23:36)
[2017-12-30] MEDS: ATORVASTATIN 10 MG TAB PO SCH (23:37)
[2017-12-31] VITALS (12 sets, daily range): BP systolic 91–151; BP diastolic 53–83; PULSE 61–79; RESP 8–22; TEMP 97.4–98.9; O2SAT 97–100
[2017-12-31] MEDS ORDERED: SODIUM CHLOR 0.9% 1000 ML INJ 1,000 ML IV ONE (01:15)
[2017-12-31] MEDS: CHLORHEXIDINE GLUCONATE 2 % 1 PACK (2 CLOTHS) TOP SCH (01:27)
[2017-12-31 02:52] LABS: AUTOMATED NEUTROPHIL # 2.2 TH/MM3 (1.8-7.7); BASOPHIL % 0.6 % (0.0-2.0); EOSINOPHIL # 0.1 TH/MM3 (0-0.4); EOSINOPHIL % 2.5 % (0.0-4.0); HEMATOCRIT 37.7 % (35.0-46.0); LYMPH % 50.3 % (9.0-44.0); LYMPHOCYTE # 2.9 TH/MM3 (1.0-4.8); MEAN CELL VOLUME 91.4 FL (80.0-100.0); MEAN CORPUSCULAR HEMOGLOBIN 31.5 PG (27.0-34.0); MEAN CORPUSCULAR HGB CONC 34.4 % (32.0-36.0); MEAN PLATELET VOLUME 8.1 FL (7.0-11.0); MONO % 8.3 % (0.0-8.0); MONOCYTE # 0.5 TH/MM3 (0-0.9); NEUT % 38.3 % (16.0-70.0); PLATELET COUNT 181 TH/MM3 (150-450); RED BLOOD COUNT 4.13 MIL/MM3 (4.00-5.30); RED CELL DISTRIBUTION WIDTH 12.8 % (11.6-17.2); WHITE BLOOD COUNT 5.8 TH/MM3 (4.0-11.0)
[2017-12-31 03:21] LABS: ALBUMIN 2.6 GM/DL (3.4-5.0); ALT (GPT) 20 U/L (10-53); AST (GOT) 15 U/L (15-37); BICARBONATE 25.7 MEQ/L (21.0-32.0); BLOOD UREA NITROGEN 3 MG/DL (7-18); CALCIUM 7.5 MG/DL (8.5-10.1); CHLORIDE 116 MEQ/L (98-107); CREATININE 0.58 MG/DL (0.50-1.00); GLOMERULAR FILTRATION RATE 106 ML/MIN (>89); GLUCOSE,RANDOM 129 MG/DL (74-106); SODIUM (NA) 149 MEQ/L (136-145)
[2017-12-31 03:23] LABS: ALKALINE PHOSPHATASE 64 U/L (45-117); TOTAL BILIRUBIN ADULT 0.3 MG/DL (0.2-1.0); TOTAL PROTEIN 5.3 GM/DL (6.4-8.2)
[2017-12-31] MEDS: SODIUM CHLOR 0.9% 1000 ML INJ 1,000 ML IV SCH ×3 (04:23→23:46)
[2017-12-31] MEDS: INSULIN ASPART SUPPLEMENTAL SCALE SQ SCH ×3 (08:00→21:00)
--- NOTE | 2017-12-31 08:09 | HHI.CCPN ---
Subjective Remarks/Hospital Course 52-year-old female with past medical history of bipolar disorder, diabetes, hyperlipidemia, insomnia, cocaine abuse who presented to [facility] emergency department with a 2-3 day history of lethargy. She has recently been admitted ( last 2-3 months) to [facility] for falls with subdural hematoma and had reportedly refused rehab. Workup at [place] included CT brain that demonstrated 1.5 cm chronic subdural with some acute component, without midline shift. She is not on any anticoagulant or antiplatelet therapy. Coags and platelet counts are normal. Urine drug screen and alcohol level are negative. She is also on trazodone, klonopin, and ambien prescribed by her psychiatrist and her daughter had expressed concern to Dr. Mckeon that she was overmedicated. She has had little to eat over the last 3 days. 12/31: No deterioration in neurological function. Await repeat CT head. Objective Vital Signs Date Time Temp Pulse Resp B/P (MAP) Pulse Ox O2 Delivery O2 Flow Rate FiO2 12/31/17 06:00 61 12/31/17 04:00 97.7 22 92/55 (67) 97 12/30/17 23:41 Nasal Cannula 12/30/17 23:38 3.00 Intake and Output 12/31/17 12/31/17 01/01/18 08:00 16:00 00:00 Intake Total 240 ml Output Total 950 ml Balance -710 ml Result Diagram: 12/31/17 0236 12/31/17 0236 Other Results Microbiology Date/Time Source Procedure Growth Status 12/30/17 17:40 Nasal Washing Influenza Types A,B Antigen (BEATRIZ) - Final NEGATIVE FOR FLU A AND B ANTIGEN.... Complete Laboratory Tests Test 12/30/17 19:15 Blood Gas Puncture Site RT BRACHIAL Blood Gas Patient Temperature 98.6 Blood Gas HCO3 25 mmol/L (22-26) Blood Gas Base Excess 1.1 mmol/L (-2-2) Blood Gas Oxygen Saturation 87 % (90-100) Arterial Blood pH 7.40 (7.380-7.420) Arterial Blood Partial Pressure CO2 42 mmHG (38-42) Arterial Blood Partial Pressure O2 61 mmHG (61-120) Arterial Blood Oxygen Content 16.0 Vol % (12.0-20.0) Arterial Blood Carboxyhemoglobin 5.9 % (0-4) Arterial Blood Methemoglobin 1.3 % (0-2) Blood Gas Hemoglobin 13.1 G/DL (12.0-16.0) Blood Gas Inspired Oxygen 21 % Objective Remarks GENERAL: Sleepy female who is laying in [facility] bed on nasal cannula. SKIN: Warm and dry. There is a superficial abrasion overlying her left knee. HEAD: Atraumatic. Normocephalic. EYES: Pupils equal and round, 4 mm and reactive to 2 mm bilaterally. No scleral icterus. No injection or drainage. ENT: No nasal bleeding or discharge. Mucous membranes dry NECK: Trachea midline. Airway widely patent, no obstructive noises. CARDIOVASCULAR: Regular rate and rhythm, sinus rhythm on the monitor with rate in the 60. No murmurs rubs or gallops. RESPIRATORY: Breathing comfortably with no accessory muscle use. Some occasionally snoring but arouses to voice. No wheezes rales or rhonchi. On nasal cannula. GASTROINTESTINAL: Abdomen soft, non-tender, nondistended. Bowel sounds present. : Patton in place with 400 ml of light yellow urine in the bag. MUSCULOSKELETAL: Extremities without clubbing, cyanosis, or edema. No obvious deformities. NEUROLOGICAL: Lethargic, opens eyes to voice, briefly makes eye contact and closes eyes again.. Follows commands by squeezing hands and moving legs bilaterally. She will not cooperate with pronator drift. She mumbles a few words but does not answer questions of orientation appropriately. DTRs are 2+ patellar bilaterally. No abnormal response to Babinski . No clonus. A/P Problem List: (1) Bipolar disorder ICD Code: F31.9 - Bipolar disorder, unspecified Status: Chronic (2) Acute on chronic intracranial subdural hematoma ICD Code: I62.01 - Nontraumatic acute subdural hemorrhage; I62.03 - Nontraumatic chronic subdural hemorrhage (3) Diabetes mellitus ICD Code: E11.9 - Type 2 diabetes mellitus without complications Status: Chronic (4) HLD (hyperlipidemia) ICD Code: E78.5 - Hyperlipidemia, unspecified Status: Chronic (5) Hypokalemia ICD Code: E87.6 - Hypokalemia Status: Acute Assessment and Plan NEURO: Acute on chronic subdural Prior history of cocaine abuse Bipolar disorder Insomnia Admit to [facility] with every hour neuro checks Follow-up imaging to be determined by Dr. Paola Continue Keppra 500 mg p.o. twice daily Avoid hypotension, hyponatremia, hypothermia, hypoxemia Neurosurgery consultation, Dr. Guevara She does appear lethargic and medications could be contributing. Will hold for now until her mental status improves. Hold Abilify 15 mg p.o. daily, Klonopin 2 mg p.o. 3 times daily, trazodone 150 twice daily, Ambien 10 mg nightly. Tylenol and salicylate level were negative. Check ammonia level in a.m. Repeat head CT RESP: Tobacco abuse Albuterol every 2 hours as needed for wheezing Chest x-ray clear Monitor for airway protection ABG pH 7.40/PCO2 42/PO2 61/bicarb 25 on room air On nasal cannula wean as tolerated. Incentive monitor every hour awake Tobacco cessation counseling when patient is able to cooperate CV: Hyperlipidemia Hypotension, suspect secondary to meds Monitor hemodynamics. Received 2.5 L NS bolus in the ED and BP was normal. That was 7 hours ago, now MAP is 62, appears may be sedative med related. Bolus additional 1 L NS bolus. Lactic acid normal 0.9 NaCl at 100 mL/h Continue atorvastatin 10 mg p.o. daily GI: NPO FEN/RENAL: Acute hypokalemia Check magnesium level Replace potassium per ICU electrolyte protocol. ID: Monitor for signs and symptoms of infection Urinalysis and chest x-ray are negative Afebrile, no leukocytosis. HEME: Monitor CBC Not on anticoagulants or antiplatelet therapy ENDO: Diabetes mellitus Hold metformin Monitor glucose before meals/at bedtime. Low-dose insulin sliding scale as indicated PROPH: SCD for DVT prophylaxis. Avoid pharmacologic DVT prophylaxis at this time due to acute on chronic subdural hematoma. Famotidine p.o. for stress ulcer prophylaxis. ACCESS: Peripheral IV providing adequate access at this time. Full code status Overall impression: Elderly appearing woman looking older than her stated age. Frequent falls and subdural blood collection right side. Problem Qualifiers (1) Diabetes mellitus: Dyllan Lopez MD December 31, 2017 08:09
[2017-12-31] MEDS: LACTULOSE SYRUP 20 GM/30 ML CUP PO SCH (08:57)
[2017-12-31] MEDS: FAMOTIDINE 20 MG TAB PO SCH ×2 (08:57→20:12)
[2017-12-31] MEDS: levETIRAcetam 500 MG TAB PO SCH ×2 (08:57→20:12)
[2017-12-31] MEDS: DOCUSATE SODIUM 50 MG/SENNA 8.6 MG TAB PO SCH ×3 (08:57→21:00)
[2017-12-31] MEDS ORDERED: ARIPiprazole 15 MG TAB PO SCH (09:00)
[2017-12-31] MEDS ORDERED: clonazePAM 1 MG TAB PO SCH (09:00)
[2017-12-31] MEDS: SODIUM CHLORIDE 0.9% FLUSH 10 ML FLUSH IV FLUSH SCH ×2 (09:00→20:12)
--- NOTE | 2017-12-31 09:53 | PD.CONS ---
HPI History of Present Illness This is a 62 year old unfortunate obese female who was admitted to the hospital on 12/30/2017. According to the record and the patient she has been falling multiple times and has had brain bleeds. Her symptoms are currently worsening for her weakness and drowsiness and she has been readmitted to the hospital for further evaluation. Patient does note some bright red rectal bleeding off and on for the past 2 months. She states occurrence is approximately 1 time a week and denies any straining with defecation patient also notes occasional diarrhea over the past few weeks but unknown timing or aggregating factors or even number of stools.. Patient's speech is slurred she is a fair to poor historian but is given some basic information. Patient denies any alcohol intake but has been a long-term smoker approximately a pack a day since her young years. Patient does note colonoscopy done at [facility] approximately 2 years ago but does not know results. She denies any previous history of EGD. Her upper GI symptoms do include some heartburn which is worse at night for approximately a year or longer but symptoms have worsened over the past few months. Patient denies any constipation, no fever, no abdominal pain. GI has been consulted to evaluate her rectal bleeding. Patient denies any history of rectal cancer. PFSH Past Medical History Recent falls and brain bleed Generalized weakness and fatigue No alcohol Tobacco dependence pack a day for years Obesity Past Surgical History Colonoscopy at [facility] approximately 2 years ago?, No known results No previous EGD Tonsillectomy Thoracic surgery according to the record? Coded Allergies: No Known Allergies (Verified Allergy, Unknown, 12/30/17) Uncoded Allergies: NKA (Allergy, Unknown, 04/30/03) NKDA (Allergy, Unknown, 04/30/03) Medications Administered Medications Medications (Trade) Dose Ordered Sig/Alfredo Route PRN Reason Start Time Stop Time Status Last Admin Dose Admin Insulin Aspart (NovoLOG SUPPLEMENTAL SCALE) 1 ACHS SLIDING SCALE SQ 12/30/17 21:00 12/30/17 23:02 Sodium Chloride 1,000 ml @ 100 mls/hr Q10H IV 12/30/17 19:43 12/31/17 04:23 Senna/Docusate Sodium (Sandra-Colace) 1 tab BID PO 12/30/17 21:00 12/31/17 08:57 Atorvastatin Calcium (Lipitor) 10 mg HS PO 12/30/17 21:00 5/11/18 23:37 Levetriacetam (Keppra) 500 mg BID PO 12/30/17 21:00 12/31/17 08:57 Sodium Chloride (NS Flush) 2 ml BID IV FLUSH 12/30/17 21:00 12/31/17 09:00 Miscellaneous Information ([facility] [place] [facility] 1 [id number] XX 12/30/17 20:00 12/30/17 01:00 Chlorhexidine Gluconate (Chlorhexidine 2% Cloth) 3 pack Taper DAILY@04 TOP 12/31/17 04:00 12/27/18 03:59 12/31/17 01:27 Famotidine (Pepcid) 20 mg BID PO 12/30/17 21:00 12/31/17 08:57 Lactulose (Lactulose Liq) 30 ml DAILY PO 12/31/17 09:00 12/31/17 08:57 Social History No alcohol positive for tobacco abuse long-term pack a day, open to her more recent illness patient has been living alone and her daughter comes by and checks on her Review of Systems Constitutional: COMPLAINS OF: Fatigue Gastrointestinal: COMPLAINS OF: Bloody stools, Diarrhea, Heartburn GI Exam Vitals I&O Vital Signs Date Time Temp Pulse Resp B/P (MAP) Pulse Ox O2 Delivery O2 Flow Rate FiO2 12/31/17 06:00 61 12/31/17 04:00 65 12/31/17 04:00 97.7 73 22 92/55 (67) 97 12/31/17 02:00 78 12/31/17 02:00 97.4 65 16 91/53 (66) 100 12/31/17 01:00 64 12/31/17 00:08 12/30/17 23:41 Nasal Cannula 12/30/17 23:38 75 16 90/58 (69) 98 Nasal Cannula 3.00 12/30/17 23:04 75 85/50 (62) 97 Nasal Cannula 3.00 12/30/17 22:10 74 82/48 (59) 96 Nasal Cannula 3.00 12/30/17 21:30 94 18 95/52 (66) 97 Nasal Cannula 3.00 12/30/17 20:55 107 16 93/56 (68) 98 Nasal Cannula 3.00 12/30/17 20:05 92 18 105/56 (72) 96 Nasal Cannula 3.00 12/30/17 19:31 Nasal Cannula 3.00 12/30/17 19:25 96 Nasal Cannula 3.00 12/30/17 19:21 86 16 97/63 (74) 96 Room Air 12/30/17 19:00 90/60 (70) 12/30/17 17:49 93 Room Air 12/30/17 17:49 93 Room Air 12/30/17 17:41 135 90 Room Air 12/30/17 17:23 97.8 145 20 118/54 (75) 94 I/O 12/30/17 12/30/17 12/30/17 12/31/17 12/31/17 12/31/17 07:00 15:00 23:00 07:00 15:00 23:00 Intake Total 2600 ml 240 ml Output Total 1000 ml 2050 ml Balance 1600 ml -1810 ml Intake Oral 240 ml IV Total 2600 ml Output Urine Total 1000 ml 2050 ml Stool Total 0 ml # Voids 0 Imaging Last Impressions Head CT [id number]/30/171728 Signed Impressions: Service Date/Time: Saturday, December 30, 2017 17:57 - CONCLUSION: 1. Acute on chronic right subdural hematoma. Vikash Staley Jr., MD Chest X-Ray [id number]/30/171728 Signed Impressions: Service Date/Time: Saturday, December 30, 2017 17:42 - CONCLUSION: No acute disease. Mitch Nix MD Laboratory Test 12/30/17 17:40 12/30/17 18:38 12/30/17 19:15 12/31/17 02:36 White Blood Count 6.7 TH/MM3 5.8 TH/MM3 Red Blood Count 4.68 MIL/MM3 4.13 MIL/MM3 Hemoglobin 14.9 GM/DL 13.0 GM/DL Hematocrit 42.4 % 37.7 % Mean Corpuscular Volume 90.5 FL 91.4 FL Mean Corpuscular Hemoglobin 31.9 PG 31.5 PG Mean Corpuscular Hemoglobin Concent 35.2 % 34.4 % Red Cell Distribution Width 12.6 % 12.8 % Platelet Count 305 TH/MM3 181 TH/MM3 Mean Platelet Volume 8.9 FL 8.1 FL Neutrophils (%) (Auto) 48.0 % 38.3 % Lymphocytes (%) (Auto) 42.5 % 50.3 % Monocytes (%) (Auto) 6.9 % 8.3 % Eosinophils (%) (Auto) 1.7 % 2.5 % Basophils (%) (Auto) 0.9 % 0.6 % Neutrophils # (Auto) 3.2 TH/MM3 2.2 TH/MM3 Lymphocytes # (Auto) 2.8 TH/MM3 2.9 TH/MM3 Monocytes # (Auto) 0.5 TH/MM3 0.5 TH/MM3 Eosinophils # (Auto) 0.1 TH/MM3 0.1 TH/MM3 Basophils # (Auto) 0.1 TH/MM3 0.0 TH/MM3 CBC Comment DIFF FINAL DIFF FINAL Differential Comment Prothrombin Time 10.8 SEC Prothromb Time International Ratio 1.1 RATIO Activated Partial Thromboplast Time 24.1 SEC Blood Urea Nitrogen 5 MG/DL 3 MG/DL Creatinine 0.64 MG/DL 0.58 MG/DL Random Glucose 298 MG/DL 129 MG/DL Total Protein 7.2 GM/DL 5.3 GM/DL Albumin 3.5 GM/DL 2.6 GM/DL Calcium Level 9.0 MG/DL 7.5 MG/DL Alkaline Phosphatase 86 U/L 64 U/L Aspartate Amino Transf (AST/SGOT) 16 U/L 15 U/L Alanine Aminotransferase (ALT/SGPT) 27 U/L 20 U/L Total Bilirubin 0.6 MG/DL 0.3 MG/DL Sodium Level 138 MEQ/L 149 MEQ/L Potassium Level 2.7 MEQ/L 3.4 MEQ/L Chloride Level 104 MEQ/L 116 MEQ/L Carbon Dioxide Level 24.1 MEQ/L 25.7 MEQ/L Anion Gap 10 MEQ/L 7 MEQ/L Estimat Glomerular Filtration Rate 94 ML/MIN 106 ML/MIN Lactic Acid Level 1.4 mmol/L Phosphorus Level 3.6 MG/DL Magnesium Level 1.9 MG/DL Total Creatine Kinase 35 U/L Troponin I LESS THAN 0.02 NG/ML Lipase 67 U/L Salicylates Level 2.7 MG/DL Acetaminophen Level LESS THAN 2.0 MCG/ML Ethyl Alcohol Level LESS THAN 3 MG/DL Urine Color YELLOW Urine Turbidity CLEAR Urine pH 5.5 Urine Specific [place] LESS/EQUAL 1.005 Urine Protein NEG mg/dL Urine Glucose (UA) 250 mg/dL Urine Ketones 15 mg/dL Urine Occult Blood NEG Urine Nitrite NEG Urine Bilirubin NEG Urine Urobilinogen 0.2 MG/DL Urine Leukocyte Esterase NEG Urine WBC 0-2 /hpf Urine Squamous Epithelial Cells 0-5 /hpf Microscopic Urinalysis Comment CULT NOT INDICATED Urine Opiates Screen NEG Urine Barbiturates Screen NEG Urine Amphetamines Screen NEG Urine Benzodiazepines Screen NEG Urine Cocaine Screen NEG Urine Cannabinoids Screen NEG Blood Gas Puncture Site RT BRACHIAL Blood Gas Patient Temperature 98.6 Blood Gas HCO3 25 mmol/L Blood Gas Base Excess 1.1 mmol/L Blood Gas Oxygen Saturation 87 % Arterial Blood pH 7.40 Arterial Blood Partial Pressure CO2 42 mmHG Arterial Blood Partial Pressure O2 61 mmHG Arterial Blood Oxygen Content 16.0 Vol % Arterial Blood Carboxyhemoglobin 5.9 % Arterial Blood Methemoglobin 1.3 % Blood Gas Hemoglobin 13.1 G/DL Blood Gas Inspired Oxygen 21 % Ammonia 40 MCMOL/L Date/Time Source Procedure Growth Status 12/30/17 17:40 Blood Peripheral Aerobic Blood Culture Pending Received 12/30/17 17:40 Blood Peripheral Anaerobic Blood Culture Pending Received 12/30/17 17:40 Nasal Washing Influenza Types A,B Antigen (BEATRIZ) - Final NEGATIVE FOR FLU A AND B ANTIGEN.... Complete Physical Examination HEENT: Pupils round and reactive to light; normocephalic; atraumatic; no jaundice. Throat is clear. NECK: Neck is supple, no JVD, no lymphadenopathy. CHEST: Chest is clear to auscultation and percussion. CARDIAC: Regular rate and rhythm with no murmur gallop or rubs. ABDOMEN: Soft, nondistended, nontender; no hepatosplenomegaly; bowel sounds are present in all four quadrants. EXTREMITIES: No clubbing, cyanosis, or edema. SKIN: Normal; no rash; no jaundice. SPA ATTENDANT: No focal deficits; alert and oriented times three. Assessment and Plan Plan 62-year-old obese female with symptoms of rectal bleeding. Onset approximately 2 months ago and notes at least once a week. Denies any straining with defecation or constipation. She is positive for some diarrhea over the past few weeks states that she takes Imodium for effectiveness. Patient does have heartburn which is worse at night this is been going on at least a year and has worsened over the past few weeks. Patient has no history of rectal cancer. She is positive for tobacco use, but no alcohol. EGD was done at [facility] approximately 2 years ago but unknown results. Patient is never had EGD in the past. Her current x-rays show right subdural bleed acute on chronic. Patient has slurred speech and is a fair to poor historian now. Current hemoglobin is 13, INR 1.1, ammonia level 40, LFTs normal, lipase level 67. Patient denies any history of liver disease. Currently patient has elevated ammonia level at 40. Could explain some of her encephalopathy and generalized weakness and drowsiness. Plan Consent for EGD with colonoscopy with [facility], there is currently no rectal bleeding so we will plan this for Tuesday. N.p.o. Tuesday night Clear liquid all day Tuesday Go lytely prep Lactulose changed to daily dose Pepcid CT ABD, routine to eval liver, elevated ammonia Diet, consider speech therapy evaluation for swallow. Patient does have some mild rhonchi in her upper chest. Monitor labs will recheck ammonia level Tuesday Further recommendations to follow Concepción Pastor December 31, 2017 09:53
[2017-12-31] MEDS ORDERED: PEG (High)/E-LYTE SOLN 4000 ML BTL PO ONE (10:00)
[2017-12-31] MEDS ORDERED: DIATRIZOATE MEGLUM/DIATRIZOATE SOD 9 ML CUP PO ONE (12:00)
--- NOTE | 2017-12-31 12:22 | HHI.NSPN ---
Note Status Status: Progress Note Interval History Diagnosis Subdural hematoma Interval History This is a 52-year-old female with past medical history of bipolar disorder, diabetes, hyperlipidemia, insomnia, cocaine abuse who presented to [facility] emergency department with a 2-3 day history of lethargy. She has recently been admitted ( last 2-3 months) to [facility] for falls with subdural hematoma and had reportedly refused rehab. No seizure activity noted. No tongue bitting. No incontinence of stool or urine. Aparently she has been manageged nonoperatively at [facility] and her condition is deteriorating. She is not on any anticoagulant or antiplatelet therapy. Coags and platelet counts are normal. Urine drug screen and alcohol level are negative. She is also on trazodone, klonopin, and ambien prescribed by her psychiatrist and her daughter had expressed concern to Dr. Mckeon that she was overmedicated. CT brain that demonstrated 1.5 cm chronic subdural with some acute component, without midline shift. Neurosurgery consultation was requested 12/31. Apears more awake. Alert, oriented to self. Follows commands Labs, Micro, & Vital Signs Results Date Time Temp Pulse Resp B/P (MAP) Pulse Ox O2 Delivery O2 Flow Rate FiO2 12/31/17 06:00 61 12/31/17 04:00 65 12/31/17 04:00 97.7 73 22 92/55 (67) 97 12/31/17 02:00 78 12/31/17 02:00 97.4 65 16 91/53 (66) 100 12/31/17 01:00 64 12/31/17 00:08 12/30/17 23:41 Nasal Cannula 12/30/17 23:38 75 16 90/58 (69) 98 Nasal Cannula 3.00 12/30/17 23:04 75 85/50 (62) 97 Nasal Cannula 3.00 12/30/17 22:10 74 82/48 (59) 96 Nasal Cannula 3.00 12/30/17 21:30 94 18 95/52 (66) 97 Nasal Cannula 3.00 5/11/18 20:55 107 16 93/56 (68) 98 Nasal Cannula 3.00 12/30/17 20:05 92 18 105/56 (72) 96 Nasal Cannula 3.00 12/30/17 19:31 Nasal Cannula 3.00 12/30/17 19:25 96 Nasal Cannula 3.00 12/30/17 19:21 86 16 97/63 (74) 96 Room Air 12/30/17 19:00 90/60 (70) 12/30/17 17:49 93 Room Air 12/30/17 17:49 93 Room Air 12/30/17 17:41 135 90 Room Air 12/30/17 17:23 97.8 145 20 118/54 (75) 94 Constitutional Vital Signs Date Time Temp Pulse Resp B/P (MAP) Pulse Ox O2 Delivery O2 Flow Rate FiO2 12/31/17 06:00 61 12/31/17 04:00 65 12/31/17 04:00 97.7 73 22 92/55 (67) 97 12/31/17 02:00 78 12/31/17 02:00 97.4 65 16 91/53 (66) 100 12/31/17 01:00 64 12/31/17 00:08 12/30/17 23:41 Nasal Cannula 12/30/17 23:38 75 16 90/58 (69) 98 Nasal Cannula 3.00 12/30/17 23:04 75 85/50 (62) 97 Nasal Cannula 3.00 12/30/17 22:10 74 82/48 (59) 96 Nasal Cannula 3.00 12/30/17 21:30 94 18 95/52 (66) 97 Nasal Cannula 3.00 12/30/17 20:55 107 16 93/56 (68) 98 Nasal Cannula 3.00 12/30/17 20:05 92 18 105/56 (72) 96 Nasal Cannula 3.00 12/30/17 19:31 Nasal Cannula 3.00 12/30/17 19:25 96 Nasal Cannula 3.00 12/30/17 19:21 86 16 97/63 (74) 96 Room Air 12/30/17 19:00 90/60 (70) 12/30/17 17:49 93 Room Air 12/30/17 17:49 93 Room Air 12/30/17 17:41 135 90 Room Air 5/11/18 17:23 97.8 145 20 118/54 (96) 94 Physical Exam GENERAL: Ms Lambert is laying in bed NEUROLOGICAL: Lethargic, opens eyes to voice, Oriented to self. Follows commands by squeezing hands and moving legs bilaterally. She will not cooperate with pronator drift. She mumbles a few words but does not answer questions of orientation appropriately. DTRs are 2+ patellar bilaterally. No abnormal response to Babinski . No clonus. SKIN: Warm and dry. There is an abrasion overlying her left knee. HEAD: Atraumatic. Normocephalic. EYES: Pupils equal and round, 5 mm and reactive to 2 mm bilaterally.. No scleral icterus. No injection or drainage. ENT: No nasal bleeding or discharge. Mucous membranes dry NECK: Trachea midline. No JVD. CARDIOVASCULAR: Regular rate and rhythm, sinus rhythm on the monitor with rate in the 60. No murmurs rubs or gallops. RESPIRATORY: Breathing comfortably with no accessory muscle use. She is occasionally snoring but arouses to voice. No wheezes rales or rhonchi. On nasal cannula. GASTROINTESTINAL: Abdomen soft, non-tender, nondistended. Bowel sounds present. : Patton in place with 400 ml of light yellow urine in the bag. MUSCULOSKELETAL: Extremities without clubbing, cyanosis, or edema. No obvious deformities. Medications Current Medications Current Medications Sodium Chloride 500 ml @ 500 mls/hr BOLUS ONCE IV Last administered on at 18:23; Start 12/30/17 at 18:00; Stop 12/30/17 at 18:59; Status DC Sodium Chloride 1,000 ml @ 999 mls/hr BOLUS ONCE IV Last administered on 12/30at 19:13; Start 12/30/17 at 19:15; Stop 12/30/17 at 20:15; Status DC Sodium Chloride 1,000 ml @ 999 mls/hr BOLUS ONCE IV Last administered on 12/30at 19:14; Start 12/30/17 at 19:15; Stop 12/30/17 at 20:15; Status DC Dextrose (D50w (Vial) Inj) 50 ml UNSCH PRN IV PUSH HYPOGLYCEMIA-SEE COMMENTS; Start 12/30/17 at 19:45 Glucagon (Glucagon Inj) 1 mg UNSCH PRN OTHER HYPOGLYCEMIA-SEE COMMENTS; Start 5/11/18 at 19:45 Insulin Aspart (NovoLOG SUPPLEMENTAL SCALE) 1 ACHS SLIDING SCALE SQ Last administered on 12/30/17at 23:02; Start 12/30/17 at 21:00 Sodium Chloride 1,000 ml @ 100 mls/hr Q10H IV Last administered on 12/31/17at 11:47; Start 12/30/17 at 19:43 Sodium Chloride (NS Flush) 2 ml UNSCH PRN IV FLUSH FLUSH AFTER USING IV ACCESS ; Start 12/30/17 at 19:45; Stop 12/30/17 at 20:17; Status DC Sodium Chloride (NS Flush) 2 ml BID IV FLUSH ; Start 12/30/17 at 21:00; Stop 07/09 at 21:00; Status DC Metoclopramide HCl (Reglan Inj) 5 mg Q6H PRN IV PUSH NAUSEA OR VOMITING; Start 12/30/17 at 19:45 Acetaminophen (Tylenol) 650 mg Q6H PRN PO FEVER/PAIN SCALE 1 TO 2; Start at 19:45 Acetaminophen/ Hydrocodone Bitart ([place] 5-325 Mg) 1 tab Q4H PRN PO PAIN SCALE 3 TO 5; Start 12/30/17 at 19:45 Morphine Sulfate (Morphine Inj) 2 mg Q3H PRN IV PUSH Pain 6-10; Start 12/30/17 at 20:30 Senna/Docusate Sodium (Sandra-Colace) 1 tab BID PO Last administered on at 08:57; Start 12/30/17 at 21:00 Magnesium Hydroxide (Milk Of Magnesia Liq) 30 ml Q12H PRN PO Mild constipation ; Start 12/30/17 at 19:45 Sennosides (Senokot) 17.2 mg Q12H PRN PO Moderate constipation; Start 12/30/17 at 19:45 Bisacodyl (Dulcolax Supp) 10 mg DAILY PRN RECTAL SEVERE CONSITIPATION; Start at 19:45 Lactulose (Lactulose Liq) 30 ml DAILY PRN PO SEVERE CONSITIPATION; Start at 19:45 Aripiprazole (Abilify) 15 mg DAILY PO ; Start 12/31/17 at 09:00; Status Future Hold Atorvastatin Calcium (Lipitor) 10 mg HS PO Last administered on 12/30/17at 23:37 ; Start 12/30/17 at 21:00 Clonazepam (KlonoPIN) 2 mg TID PO ; Start 12/31/17 at 09:00; Status Future Hold Levetriacetam (Keppra) 500 mg BID PO Last administered on 12/31/17at 08:57; Start 12/30/17 at 21:00 Non-Formulary Medication 150 mg BID PO ; Start 12/30/17 at 21:00; Stop 12/30/17 at 21:00; Status DC Potassium Chloride 100 ml @ 50 mls/hr Q2H PRN IV For Potassium 2.8 - 3.2 mEq/L ; Start 12/30/17 at 20:00 Potassium Chloride 100 ml @ 50 mls/hr Q2H PRN IV For Potassium 2.8 - 3.2 mEq/L ; Start 12/30/17 at 20:00 Potassium Bicarb/ Potassium Chloride (K-Lyte Cl Eff) 50 meq UNSCH PRN PO For Potassium 3.3 - 3.5 mEq/L; Start 12/30/17 at 20:00 Potassium Chloride 100 ml @ 25 mls/hr UNSCH PRN IV For Potassium 3.3 - 3.5 mEq /L; Start 12/30/17 at 20:00 Potassium Chloride 100 ml @ 50 mls/hr Q2H PRN IV For Potassium 3.3 - 3.5 mEq/L ; Start 12/30/17 at 20:00 Magnesium Sulfate 4 gm/Sodium Chloride 100 ml @ 50 mls/hr UNSCH PRN IV For Magnesium 0.9 - 1.1 mg/dL; Start 12/30/17 at 20:00 Magnesium Oxide (Mag-Ox) 800 mg UNSCH PRN PO For Magnesium 1.2 - 1.6 mg/dL; Start 12/30/17 at 20:00 Magnesium Sulfate 2 gm/Sodium Chloride 100 ml @ 50 mls/hr UNSCH PRN IV For Magnesium 1.2 - 1.6 mg/dL; Start 12/30/17 at 20:00 Potassium Phosphate (K-Phos) 2,000 mg Q4H PRN PO For Phosphorus < 2.5 mg/dL; Start 12/30/17 at 20:00 Sodium Phosphate 30 mmol/Sodium Chloride 250 ml @ 42 mls/hr UNSCH PRN IV For Phosphorus < 2.5 mg/dL; Start 12/30/17 at 20:00 Potassium Phosphate (K-Phos) 2,000 mg UNSCH PRN PO/TUBE SEE LABEL COMMENTS; Start 12/30/17 at 20:00 Potassium Phosphate 30 mmol/ Sodium Chloride 260 ml @ 42 mls/hr UNSCH PRN IV SEE LABEL COMMENTS; Start 12/30/17 at 20:00 Potassium Chloride 100 ml @ 50 mls/hr ONCE ONCE IV Last administered on at 20:12; Start 12/30/17 at 20:00; Stop 12/30/17 at 21:59; Status DC Sodium Chloride (NS Flush) 2 ml UNSCH PRN IV FLUSH FLUSH AFTER USING IV ACCESS ; Start 12/30/17 at 20:00 Sodium Chloride (NS Flush) 2 ml BID IV FLUSH Last administered on 12/31/17at 09: 00; Start 12/30/17 at 21:00 Albuterol Sulfate (Albuterol Neb) 2.5 mg Q2HR NEB PRN INH SOB/WHEEZING; Start 12/30/17 at 20:00 Miscellaneous Information ([facility] Nursing Information) 1 [id number] Last administered on 12/30/17at 01:00; Start 12/30/17 at 20:00 Chlorhexidine Gluconate (Chlorhexidine 2% Cloth) 3 pack Taper DAILY@04 TOP Last administered on 12/31/17at 01:27; Start 12/31/17 at 04:00; Stop 12/27/18 at 03:59 Chlorhexidine Gluconate (Chlorhexidine 2% Cloth) 3 pack UNSCH PRN TOP HYGIENIC CARE; Start 12/30/17 at 20:00 Famotidine (Pepcid) 20 mg BID PO Last administered on 12/31/17at 08:57; Start at 21:00 Sodium Chloride 1,000 ml @ 999 mls/hr BOLUS ONCE IV Last administered on 12/31at 01:15; Start 12/31/17 at 01:15; Stop 12/31/17 at 02:15; Status DC Lactulose (Lactulose Liq) 30 ml DAILY PO Last administered on 12/31/17at 08:57; Start 12/31/17 at 09:00 Polyethylene Glycol/ Electrolytes (Colyte Liq) 4,000 ml ONCE ONCE PO Last administered on 12/31/17at 10:53; Start 12/31/17 at 10:00; Stop 12/31/17 at 10:03 ; Status DC Diatrizoate Meglum/ Diatrizoate Sod ( Gastroview Liq) 18 ml ONCE ONCE PO ; Start 12/31/17 at 12:00; Stop 12/31/17 at 12:01; Status DC Medical Decision Making MDM Remarks Problem List: (1) Bipolar disorder ICD Code: F31.9 - Bipolar disorder, unspecified Status: Chronic (2) Acute on chronic intracranial subdural hematoma ICD Code: I62.01 - Nontraumatic acute subdural hemorrhage; I62.03 - Nontraumatic chronic subdural hemorrhage (3) Diabetes mellitus ICD Code: E11.9 - Type 2 diabetes mellitus without complications Status: Chronic (4) HLD (hyperlipidemia) ICD Code: E78.5 - Hyperlipidemia, unspecified Status: Chronic (5) Hypokalemia ICD Code: E87.6 - Hypokalemia Status: Acute Acute on chronic subdural. Continue neuro checks in a serial fashion. Awaiting MRI of the head Will discuss with her family the alternatives of treatment I again reviewed her Ct scan Head CT 12/30/17 [id number] Signed Impressions: Service Date/Time: Saturday, December 30, 2017 17:57 - CONCLUSION: 1. Acute on chronic right subdural hematoma. Vikash Staley Jr., MD Bipolar disorder Avoid hypotension, hyponatremia, hypothermia, hypoxemia She appears lethargic and medications could be contributing. Will hold for now until her mental status improves. Hold Abilify 15 mg p.o. daily, Klonopin 2 mg p.o. 3 times daily, trazodone 150 twice daily, Ambien 10 mg nightly. Tylenol and salicylate level were negative. Check ammonia level in a.m. Tobacco abuse. Albuterol every 2 hours as needed for wheezing Chest x-ray clear Monitor for airway protection On nasal cannula wean as tolerated. Incentive monitor every hour awake Tobacco cessation counseling when patient is able to cooperate Hyperlipidemia. Continue atorvastatin 10 mg p.o. daily Hypotension, suspect secondary to meds Monitor hemodynamics. Received 2.5 L NS bolus in the ED and BP was normal. That was 7 hours ago, now MAP is 62, appears may be sedative med related. Bolus additional 1 L NS bolus. Lactic acid normal 0.9 NaCl at 100 mL/h GI: Speech pathology to recommend diet Acute hypokalemia Check magnesium level Replace potassium per ICU electrolyte protocol. ID: Monitor for signs and symptoms of infection Urinalysis and chest x-ray are negative HEME: Follow up CBC Diabetes mellitus. Hold metformin Monitor glucose before meals/at bedtime. Low-dose insulin sliding scale as indicated Gastritis. Famotidine p.o. for stress ulcer prophylaxis. Scheduled for Famotidine p.o. for stress ulcer prophylaxis. PROPH: SCD for DVT prophylaxis. Avoid pharmacologic DVT prophylaxis at this time due to acute on chronic subdural hematoma. Caprini VTE Risk Assessment: Mod/High Risk (score >= 2) VTE Pharm Contraindication: Documented Caprini Risk Assessment Model Point Value = 1 Point Value = 2 Point Value = 3 Point Value = 5 Age 41-60 Minor surgery BMI > 25 kg/m2 Swollen legs Varicose veins or History of unexplained or recurrent spontaneous Oral contraceptives or hormone replacement Sepsis (< 1 month) Serious lung disease, including pneumonia (< 1 month) Abnormal pulmonary function Acute myocardial infarction Congestive heart failure (< 1 month) History of inflammatory bowel disease Medical patient at bed rest Age 61-74 Arthroscopic surgery Major open surgery (> 45 min) Laparoscopic surgery (> 45 min) Malignancy Confined to bed (> 72 hours) Immobilizing plaster cast Central venous access Age >= 75 History of VTE Family history of VTE Factor V Leiden Prothrombin [id number] Lupus anticoagulant Anticardiolipin antibodies Elevated serum homocysteine Heparin-induced thrombocytopenia Other congenital or acquired thrombophilia Stroke (< 1 month) Elective arthroplasty Hip, pelvis, or leg fracture Acute spinal cord injury (< 1 month) Prophylaxis Regimen Total Risk Factor Score Risk Level Prophylaxis Regimen 0-1 Low Early ambulation 2 Moderate Order ONE of the following: *Sequential Compression Device (SCD) *Heparin 5000 units SQ BID 3-4 Higher Order ONE of the following medications: *Heparin 5000 units SQ TID *Enoxaparin/Lovenox 40 mg SQ daily (WT < 150 kg, CrCl > 30 mL/min) *Enoxaparin/Lovenox 30 mg SQ daily (WT < 150 kg, CrCl > 10-29 mL/min) *Enoxaparin/Lovenox 30 mg SQ BID (WT < 150 kg, CrCl > 30 mL/min) AND/OR *Sequential Compression Device (SCD) 5 or more Highest Order ONE of the following medications: *Heparin 5000 units SQ TID (Preferred with Epidurals) *Enoxaparin/Lovenox 40 mg SQ daily (WT < 150 kg, CrCl > 30 mL/min) *Enoxaparin/Lovenox 30 mg SQ daily (WT < 150 kg, CrCl > 10-29 mL/min) *Enoxaparin/Lovenox 30 mg SQ BID (WT < 150 kg, CrCl > 30 mL/min) AND *Sequential Compression Device (SCD) Nick Guevara MD December 31, 2017 12:22
--- NOTE | 2017-12-31 16:59 | RADRPT ---
EXAM DATE/TIME: 12/31/2017 16:20 [facility] COMPARISON: No previous studies available for comparison. INDICATIONS : Confusion. Fall, head trauma. MEDICAL HISTORY : Diabetes mellitus type 2. SURGICAL HISTORY : Tonsillectomy. section. ENCOUNTER: Initial ACUITY: 1 day PAIN SCORE: 0/10 LOCATION: cranial TECHNIQUE: Multiplanar, multisequence MRI of the brain was performed without contrast. FINDINGS: Acute and chronic subdural hematoma on the right measuring 1.5 cm greatest dimension with effacement of the cortical sulci. Ventricular size is appropriate. There is no restricted diffusion The left hemisphere is unremarkable Posterior fossa appears normal. Orbits and paranasal sinuses are unremarkable. CONCLUSION: Acute on chronic subdural hematoma right side more chronic than acute. Minimal effacement of the cor tical sulci. Aakash Quintanilla MD FACR on December 31, 2017 at 16:55 Board Certified Radiologist. This report was verified electronically.
[2017-12-31] MEDS ORDERED: IOHEXOL 350 MG/ML 10 ML VIAL (for RAD DIAG) IVCONTRAST ONE (17:13)
--- NOTE | 2017-12-31 17:15 | RADRPT ---
EXAM DATE/TIME: 12/31/2017 16:46 [facility] COMPARISON: No previous studies available for comparison. INDICATIONS : Cirrhosis. IV CONTRAST: 95 cc Omnipaque 350 (iohexol) IV ORAL CONTRAST: Prescribed oral contrast ingested. RADIATION DOSE: 14.39 CTDIvol (mGy) MEDICAL HISTORY : diabetes SURGICAL HISTORY : None. ENCOUNTER: Initial ACUITY: 1 day PAIN SCALE: 0/10 LOCATION: Abdomen TECHNIQUE: Volumetric scanning of the abdomen was performed. Using automated exposure control and adjustment of the mA and/or kV according to patient size, radiation dose was kept as low as reasonably achievable to obtain optimal diagnostic quality images. DICOM format image data is available electronically for review and comparison. FINDINGS: LOWER LUNGS: Mild bibasilar atelectasis. LIVER: There is decreased density throughout the liver. This is characteristic for diffuse fatty infiltratio n. No dilated biliary ducts. The portal system is patent. The gallbladder is unremarkable. SPLEEN: Normal size without lesion. PANCREAS: Within normal limits. KIDNEYS: Normal in size and shape. There is no mass or hydronephrosis. A few tiny nonobstructing stones are se en in both kidneys. The ureters are nondilated. ADRENAL GLANDS: Within normal limits. AORTA/RETROPERITONEAL: There is no aneurysm or lymphadenopathy. BOWEL/MESENTERY: The stomach and visualized small and large bowel demonstrate no abnormality. The appendix is unremark able. No inflammatory changes. ABDOMINAL WALL: Within normal limits. MUSCULOSKELETAL: Within normal limits for patient age. POST CONTRAST: No abnormal areas of enhancement are seen. CONCLUSION: 1. There is decreased density throughout the entire liver characteristic for diffuse fatty infiltrati on. 2. A few tiny nonobstructing bilateral renal stones are demonstrated. 3. Otherwise, unremarkable exam. Gene Owens MD on December 31, 2017 at 17:08 Board Certified Radiologist. This report was verified electronically.
--- NOTE | 2017-12-31 18:30 | EKG ---
Date Performed: 12/30/2017 Time Performed: 17:50:23 PTAGE: 62 years EKG: SINUS TACHYCARDIA MINIMAL ST DEPRESSION ABNORMAL RHYTHM ECG NO PREVIOUS TRACING DOCTOR: Tommy Buckley Interpretating Date/Time 12/31/2017 18:28:13
[2017-12-31] MEDS: clonazePAM 1 MG TAB PO PRN (18:55)
[2017-12-31] MEDS: ATORVASTATIN 10 MG TAB PO SCH (20:12)
[2017-12-31] MEDS: QUEtiapine FUMARATE 300 MG TAB PO SCH (20:19)
[2018-01-01] VITALS (13 sets, daily range): BP systolic 104–141; BP diastolic 56–72; PULSE 72–90; RESP 12–21; TEMP 98–98.8; O2SAT 93–100
[2018-01-01] MEDS: CHLORHEXIDINE GLUCONATE 2 % 1 PACK (2 CLOTHS) TOP SCH (04:00)
[2018-01-01 05:44] LABS: BICARBONATE 25.8 MEQ/L (21.0-32.0); CALCIUM 8.3 MG/DL (8.5-10.1); CREATININE 0.7 MG/DL (0.50-1.00)
[2018-01-01] MEDS: INSULIN ASPART SUPPLEMENTAL SCALE SQ SCH ×4 (08:00→20:36)
[2018-01-01] MEDS: SODIUM CHLORIDE 0.9% FLUSH 10 ML FLUSH IV FLUSH SCH ×2 (09:00→20:36)
[2018-01-01] MEDS: FAMOTIDINE 20 MG TAB PO SCH ×2 (09:00→20:35)
[2018-01-01] MEDS: QUEtiapine FUMARATE 300 MG TAB PO SCH ×2 (09:00→20:35)
[2018-01-01] MEDS: levETIRAcetam 500 MG TAB PO SCH ×2 (09:21→20:35)
[2018-01-01] MEDS: LACTULOSE SYRUP 20 GM/30 ML CUP PO SCH (09:21)
[2018-01-01] MEDS: DOCUSATE SODIUM 50 MG/SENNA 8.6 MG TAB PO SCH ×2 (09:21→20:34)
--- NOTE | 2018-01-01 10:03 | HHI.CCPN ---
Subjective Remarks/Hospital Course 52-year-old female with past medical history of bipolar disorder, diabetes, hyperlipidemia, insomnia, cocaine abuse who presented to [facility] emergency department with a 2-3 day history of lethargy. She has recently been admitted ( last 2-3 months) to [facility] for falls with subdural hematoma and had reportedly refused rehab. Workup at [facility] included CT brain that demonstrated 1.5 cm chronic subdural with some acute component, without midline shift. She is not on any anticoagulant or antiplatelet therapy. Coags and platelet counts are normal. Urine drug screen and alcohol level are negative. She is also on trazodone, klonopin, and ambien prescribed by her psychiatrist and her daughter had expressed concern to Dr. Mckeon that she was overmedicated. She has had little to eat over the last 3 days. 12/31: No deterioration in neurological function. Await repeat CT head. 01/01: No change in neurologic function. Patient appears particularly dependent on her Klonopin and Seroquel. Behavior is otherwise mercurial. Objective Vital Signs Date Time Temp Pulse Resp B/P (MAP) Pulse Ox O2 Delivery O2 Flow Rate FiO2 01/01/18 06:00 87 01/01/18 04:00 98.6 12 104/56 (72) 93 12/31/17 22:30 Nasal Cannula 5.00 Intake and Output 01/01/18 01/01/18 01/02/18 08:00 16:00 00:00 Intake Total 1610 ml Output Total 3600 ml Balance -1990 ml Result Diagram: 12/31/17 0236 01/01/18 0351 Other Results Microbiology Date/Time Source Procedure Growth Status 12/30/17 17:40 Nasal Washing Influenza Types A,B Antigen (BEATRIZ) - Final NEGATIVE FOR FLU A AND B ANTIGEN.... Complete Objective Remarks GENERAL: Sleepy female who is laying in ISC bed on nasal cannula. SKIN: Warm and dry. There is a superficial abrasion overlying her left knee. HEAD: Atraumatic. Normocephalic. EYES: Pupils equal and round, 4 mm and reactive to 2 mm bilaterally. No scleral icterus. No injection or drainage. ENT: No nasal bleeding or discharge. Mucous membranes dry NECK: Trachea midline. Airway widely patent, no obstructive noises. CARDIOVASCULAR: Regular rate and rhythm, sinus rhythm on the monitor with rate in the 60. No murmurs rubs or gallops. RESPIRATORY: Breathing comfortably with no accessory muscle use. Some occasionally snoring but arouses to voice. No wheezes rales or rhonchi. On nasal cannula. GASTROINTESTINAL: Abdomen soft, non-tender, nondistended. Bowel sounds present. : Patton in place with 400 ml of light yellow urine in the bag. MUSCULOSKELETAL: Extremities without clubbing, cyanosis, or edema. No obvious deformities. NEUROLOGICAL: More alert today. Follows commands by squeezing hands and moving legs bilaterally. DTRs are 2+ patellar bilaterally. No clonus. A/P Problem List: (1) Bipolar disorder ICD Code: F31.9 - Bipolar disorder, unspecified Status: Chronic (2) Acute on chronic intracranial subdural hematoma ICD Code: I62.01 - Nontraumatic acute subdural hemorrhage; I62.03 - Nontraumatic chronic subdural hemorrhage (3) Diabetes mellitus ICD Code: E11.9 - Type 2 diabetes mellitus without complications Status: Chronic (4) HLD (hyperlipidemia) ICD Code: E78.5 - Hyperlipidemia, unspecified Status: Chronic (5) Hypokalemia ICD Code: E87.6 - Hypokalemia Status: Acute Assessment and Plan NEURO: Acute on chronic subdural Prior history of cocaine abuse Bipolar disorder Insomnia Admit to [facility] with every hour neuro checks Follow-up imaging to be determined by Dr. Guevara Continue Keppra 500 mg p.o. twice daily Avoid hypotension, hyponatremia, hypothermia, hypoxemia Neurosurgery consultation, Dr. Guevara She does appear lethargic and medications could be contributing. Will hold for now until her mental status improves. Hold Abilify 15 mg p.o. daily, Klonopin 2 mg p.o. 3 times daily, trazodone 150 twice daily, Ambien 10 mg nightly. Tylenol and salicylate level were negative. Check ammonia level in a.m. Repeat head CT RESP: Tobacco abuse Albuterol every 2 hours as needed for wheezing Chest x-ray clear Monitor for airway protection ABG pH 7.40/PCO2 42/PO2 61/bicarb 25 on room air On nasal cannula wean as tolerated. Incentive monitor every hour awake Tobacco cessation counseling when patient is able to cooperate CV: Hyperlipidemia Hypotension, suspect secondary to meds Monitor hemodynamics. Received 2.5 L NS bolus in the ED and BP was normal. That was 7 hours ago, now MAP is 62, appears may be sedative med related. Bolus additional 1 L NS bolus. Lactic acid normal 0.9 NaCl at 100 mL/h Continue atorvastatin 10 mg p.o. daily GI: NPO FEN/RENAL: Acute hypokalemia Check magnesium level Replace potassium per ICU electrolyte protocol. ID: Monitor for signs and symptoms of infection Urinalysis and chest x-ray are negative Afebrile, no leukocytosis. HEME: Monitor CBC Not on anticoagulants or antiplatelet therapy ENDO: Diabetes mellitus Hold metformin Monitor glucose before meals/at bedtime. Low-dose insulin sliding scale as indicated PROPH: SCD for DVT prophylaxis. Avoid pharmacologic DVT prophylaxis at this time due to acute on chronic subdural hematoma. Famotidine p.o. for stress ulcer prophylaxis. ACCESS: Peripheral IV providing adequate access at this time. Overall impression: Elderly appearing woman looking older than her stated age. Frequent falls recently, acute on chronic subdural blood collection right side. Problem Qualifiers (1) Diabetes mellitus: Dyllan Lopez MD January 01, 2018 10:03
[2018-01-01] MEDS: clonazePAM 1 MG TAB PO PRN ×2 (10:41→19:15)
[2018-01-01] MEDS: SODIUM CHLOR 0.9% 1000 ML INJ 1,000 ML IV SCH ×2 (11:43→20:36)
[2018-01-01] MEDS: POTASSIUM CHLORIDE 25 MEQ EFFERVESCENT TAB PO SCH (11:45)
--- NOTE | 2018-01-01 11:46 | HHI.NSPN ---
Note Status Status: Progress Note Interval History Diagnosis Subdural hematoma Interval History This is a 52-year-old female with past medical history of bipolar disorder, diabetes, hyperlipidemia, insomnia, cocaine abuse who presented to [facility] emergency department with a 2-3 day history of lethargy. She has recently been admitted ( last 2-3 months) to [facility] [place] for falls with subdural hematoma and had reportedly refused rehab. No seizure activity noted. No tongue bitting. No incontinence of stool or urine. Aparently she has been manageged nonoperatively at [facility] and her condition is deteriorating. She is not on any anticoagulant or antiplatelet therapy. Coags and platelet counts are normal. Urine drug screen and alcohol level are negative. She is also on trazodone, klonopin, and ambien prescribed by her psychiatrist and her daughter had expressed concern to Dr. Mckeon that she was overmedicated. CT brain that demonstrated 1.5 cm chronic subdural with some acute component, without midline shift. Neurosurgery consultation was requested 12/31. Apears more awake. Alert, oriented to self. Follows commands 11/01. Clinically improved today Labs, Micro, & Vital Signs Results Date Time Temp Pulse Resp B/P (MAP) Pulse Ox O2 Delivery O2 Flow Rate FiO2 01/01/18 06:00 87 01/01/18 04:00 98.6 78 12 104/56 (72) 93 01/01/18 00:00 98.0 75 14 141/69 (93) 94 12/31/17 22:30 89 Nasal Cannula 5.00 12/31/17 20:00 79 12/31/17 20:00 98.9 72 13 102/53 (69) 97 12/31/17 19:00 97 Nasal Cannula 3.00 12/31/17 17:30 100 Nasal Cannula 3.00 12/31/17 16:00 74 12/31/17 16:00 98.4 74 8 151/79 (103) 100 12/31/17 14:00 78 12/31/17 12:00 98.7 68 12 143/83 (103) 100 12/31/17 12:00 68 Constitutional Vital Signs Date Time Temp Pulse Resp B/P (MAP) Pulse Ox O2 Delivery O2 Flow Rate FiO2 01/01/18 06:00 87 01/01/18 04:00 98.6 78 12 104/56 (72) 93 01/01/18 00:00 98.0 75 14 141/69 (93) 94 12/31/17 22:30 89 Nasal Cannula 5.00 12/31/17 20:00 79 12/31/17 20:00 98.9 72 13 102/53 (69) 97 12/31/17 19:00 97 Nasal Cannula 3.00 12/31/17 17:30 100 Nasal Cannula 3.00 12/31/17 16:00 74 12/31/17 16:00 98.4 74 8 151/79 (103) 100 12/31/17 14:00 78 12/31/17 12:00 98.7 68 12 143/83 (103) 100 12/31/17 12:00 68 Physical Exam GENERAL: Ms Lambert is laying in bed NEUROLOGICAL: alert, awake, Oriented to self. Moderate to severe cognitive impairment. Follows commands by squeezing hands and moving legs bilaterally. She will not cooperate with pronator drift. She mumbles a few words but does not answer questions of orientation appropriately. DTRs are 2+ patellar bilaterally. No abnormal response to Babinski . No clonus. SKIN: Warm and dry. There is an abrasion overlying her left knee. HEAD: Atraumatic. Normocephalic. EYES: Pupils equal and round, 5 mm and reactive to 2 mm bilaterally.. No scleral icterus. No injection or drainage. ENT: No nasal bleeding or discharge. Mucous membranes dry NECK: Trachea midline. No JVD. CARDIOVASCULAR: Regular rate and rhythm, sinus rhythm on the monitor with rate in the 60. No murmurs rubs or gallops. RESPIRATORY: Breathing comfortably with no accessory muscle use. She is occasionally snoring but arouses to voice. No wheezes rales or rhonchi. On nasal cannula. GASTROINTESTINAL: Abdomen soft, non-tender, nondistended. Bowel sounds present. : Patton in place with 400 ml of light yellow urine in the bag. MUSCULOSKELETAL: Extremities without clubbing, cyanosis, or edema. No obvious deformities. Medications Current Medications Current Medications Sodium Chloride 500 ml @ 500 mls/hr BOLUS ONCE IV Last administered on at 18:23; Start 12/30/17 at 18:00; Stop 12/30/17 at 18:59; Status DC Sodium Chloride 1,000 ml @ 999 mls/hr BOLUS ONCE IV Last administered on 12/30at 19:13; Start 12/30/17 at 19:15; Stop 12/30/17 at 20:15; Status DC Sodium Chloride 1,000 ml @ 999 mls/hr BOLUS ONCE IV Last administered on 12/30at 19:14; Start 12/30/17 at 19:15; Stop 12/30/17 at 20:15; Status DC Dextrose (D50w (Vial) Inj) 50 ml UNSCH PRN IV PUSH HYPOGLYCEMIA-SEE COMMENTS; Start 12/30/17 at 19:45 Glucagon (Glucagon Inj) 1 mg UNSCH PRN OTHER HYPOGLYCEMIA-SEE COMMENTS; Start 12/30/17 at 19:45 Insulin Aspart (NovoLOG SUPPLEMENTAL SCALE) 1 ACHS SLIDING SCALE SQ Last administered on 12/30/17at 23:02; Start 12/30/17 at 21:00 Sodium Chloride 1,000 ml @ 100 mls/hr Q10H IV Last administered on 12/31/17at 23:46; Start 12/30/17 at 19:43 Sodium Chloride (NS Flush) 2 ml UNSCH PRN IV FLUSH FLUSH AFTER USING IV ACCESS ; Start 12/30/17 at 19:45; Stop 12/30/17 at 20:17; Status DC Sodium Chloride (NS Flush) 2 ml BID IV FLUSH ; Start 12/30/17 at 21:00; Stop 07/09 at 21:00; Status DC Metoclopramide HCl (Reglan Inj) 5 mg Q6H PRN IV PUSH NAUSEA OR VOMITING; Start 12/30/17 at 19:45 Acetaminophen (Tylenol) 650 mg Q6H PRN PO FEVER/PAIN SCALE 1 TO 2; Start at 19:45 Acetaminophen/ Hydrocodone Bitart ([place] 5-325 Mg) 1 tab Q4H PRN PO PAIN SCALE 3 TO 5; Start 12/30/17 at 19:45 Morphine Sulfate (Morphine Inj) 2 mg Q3H PRN IV PUSH Pain 6-10; Start 12/30/17 at 20:30 Senna/Docusate Sodium (Sandra-Colace) 1 tab BID PO Last administered on at 09:21; Start 12/30/17 at 21:00 Magnesium Hydroxide (Milk Of Magnesia Liq) 30 ml Q12H PRN PO Mild constipation ; Start 12/30/17 at 19:45 Sennosides (Senokot) 17.2 mg Q12H PRN PO Moderate constipation; Start 12/30/17 at 19:45 Bisacodyl (Dulcolax Supp) 10 mg DAILY PRN RECTAL SEVERE CONSITIPATION; Start at 19:45 Lactulose (Lactulose Liq) 30 ml DAILY PRN PO SEVERE CONSITIPATION; Start at 19:45 Aripiprazole (Abilify) 15 mg DAILY PO ; Start 12/31/17 at 09:00; Status Future Hold Atorvastatin Calcium (Lipitor) 10 mg HS PO Last administered on 12/31/17at 20:12 ; Start 12/30/17 at 21:00 Clonazepam (KlonoPIN) 2 mg TID PO ; Start 12/31/17 at 09:00; Status Future Hold Levetriacetam (Keppra) 500 mg BID PO Last administered on 01/01/18at 09:21; Start 12/30/17 at 21:00 Non-Formulary Medication 150 mg BID PO ; Start 12/30/17 at 21:00; Stop 12/30/17 at 21:00; Status DC Potassium Chloride 100 ml @ 50 mls/hr Q2H PRN IV For Potassium 2.8 - 3.2 mEq/L ; Start 12/30/17 at 20:00 Potassium Chloride 100 ml @ 50 mls/hr Q2H PRN IV For Potassium 2.8 - 3.2 mEq/L ; Start 12/30/17 at 20:00 Potassium Bicarb/ Potassium Chloride (K-Lyte Cl Eff) 50 meq UNSCH PRN PO For Potassium 3.3 - 3.5 mEq/L; Start 12/30/17 at 20:00 Potassium Chloride 100 ml @ 25 mls/hr UNSCH PRN IV For Potassium 3.3 - 3.5 mEq /L; Start 12/30/17 at 20:00 Potassium Chloride 100 ml @ 50 mls/hr Q2H PRN IV For Potassium 3.3 - 3.5 mEq/ L Last administered on 01/01/18at 06:19; Start 12/30/17 at 20:00 Magnesium Sulfate 4 gm/Sodium Chloride 100 ml @ 50 mls/hr UNSCH PRN IV For Magnesium 0.9 - 1.1 mg/dL; Start 12/30/17 at 20:00 Magnesium Oxide (Mag-Ox) 800 mg UNSCH PRN PO For Magnesium 1.2 - 1.6 mg/dL; Start 12/30/17 at 20:00 Magnesium Sulfate 2 gm/Sodium Chloride 100 ml @ 50 mls/hr UNSCH PRN IV For Magnesium 1.2 - 1.6 mg/dL; Start 12/30/17 at 20:00 Potassium Phosphate (K-Phos) 2,000 mg Q4H PRN PO For Phosphorus < 2.5 mg/dL; Start 12/30/17 at 20:00 Sodium Phosphate 30 mmol/Sodium Chloride 250 ml @ 42 mls/hr UNSCH PRN IV For Phosphorus < 2.5 mg/dL; Start 12/30/17 at 20:00 Potassium Phosphate (K-Phos) 2,000 mg UNSCH PRN PO/TUBE SEE LABEL COMMENTS; Start 12/30/17 at 20:00 Potassium Phosphate 30 mmol/ Sodium Chloride 260 ml @ 42 mls/hr UNSCH PRN IV SEE LABEL COMMENTS; Start 12/30/17 at 20:00 Potassium Chloride 100 ml @ 50 mls/hr ONCE ONCE IV Last administered on at 20:12; Start 12/30/17 at 20:00; Stop 12/30/17 at 21:59; Status DC Sodium Chloride (NS Flush) 2 ml UNSCH PRN IV FLUSH FLUSH AFTER USING IV ACCESS ; Start 12/30/17 at 20:00 Sodium Chloride (NS Flush) 2 ml BID IV FLUSH Last administered on 01/01/18at 09: 00; Start 12/30/17 at 21:00 Albuterol Sulfate (Albuterol Neb) 2.5 mg Q2HR NEB PRN INH SOB/WHEEZING; Start 12/30/17 at 20:00 Miscellaneous Information ([facility] Information) 1 [id number] Last administered on 12/30/17at 01:00; Start 12/30/17 at 20:00 Chlorhexidine Gluconate (Chlorhexidine 2% Cloth) 3 pack Taper DAILY@04 TOP Last administered on 12/31/17at 01:27; Start 12/31/17 at 04:00; Stop 12/27/18 at 03:59 Chlorhexidine Gluconate (Chlorhexidine 2% Cloth) 3 pack UNSCH PRN TOP HYGIENIC CARE; Start 12/30/17 at 20:00 Famotidine (Pepcid) 20 mg BID PO Last administered on 01/01/18at 09:00; Start at 21:00 Sodium Chloride 1,000 ml @ 999 mls/hr BOLUS ONCE IV Last administered on 12/31at 01:15; Start 12/31/17 at 01:15; Stop 12/31/17 at 02:15; Status DC Lactulose (Lactulose Liq) 30 ml DAILY PO Last administered on 01/01/18at 09:21; Start 12/31/17 at 09:00 Polyethylene Glycol/ Electrolytes (Colyte Liq) 4,000 ml ONCE ONCE PO Last administered on 12/31/17at 10:53; Start 12/31/17 at 10:00; Stop 12/31/17 at 10:03 ; Status DC Diatrizoate Meglum/ Diatrizoate Sod ( Gastroview Liq) 18 ml ONCE ONCE PO Last administered on 12/31/17at 13:20; Start 12/31/17 at 12:00; Stop 12/31/17 at 12:01; Status DC Iohexol (Omnipaque 350 Inj) 95 ml STK-MED ONCE IVCONTRAST Last administered on 12/31/17at 17:13; Start 12/31/17 at 17:13; Stop 12/31/17 at 17:14; Status DC Clonazepam (KlonoPIN) 2 mg Q8HR PRN PO agitation Last administered on at 10:41; Start 12/31/17 at 18:30 Quetiapine Fumarate (SEROquel) 300 mg BID PO Last administered on 01/01/18at 09: 00; Start 12/31/17 at 21:00 Medical Decision Making MDM Remarks Problem List: (1) Bipolar disorder ICD Code: F31.9 - Bipolar disorder, unspecified Status: Chronic (2) Acute on chronic intracranial subdural hematoma ICD Code: I62.01 - Nontraumatic acute subdural hemorrhage; I62.03 - Nontraumatic chronic subdural hemorrhage (3) Diabetes mellitus ICD Code: E11.9 - Type 2 diabetes mellitus without complications Status: Chronic (4) HLD (hyperlipidemia) ICD Code: E78.5 - Hyperlipidemia, unspecified Status: Chronic (5) Hypokalemia ICD Code: E87.6 - Hypokalemia Status: Acute Acute on chronic subdural. Continue neuro checks in a serial fashion. Awaiting MRI of the head Will discuss with her family the alternatives of treatment I again reviewed her Ct scan Head CT 12/30/17 [id number] Signed Impressions: Service Date/Time: Saturday, December 30, 2017 17:57 - CONCLUSION: 1. Acute on chronic right subdural hematoma. Vikash Staley Jr., MD Bipolar disorder Avoid hypotension, hyponatremia, hypothermia, hypoxemia She appears lethargic and medications could be contributing. Will hold for now until her mental status improves. Hold Abilify 15 mg p.o. daily, Klonopin 2 mg p.o. 3 times daily, trazodone 150 twice daily, Ambien 10 mg nightly. Tylenol and salicylate level were negative. Check ammonia level in a.m. Tobacco abuse. Albuterol every 2 hours as needed for wheezing Chest x-ray clear Monitor for airway protection On nasal cannula wean as tolerated. Incentive monitor every hour awake Tobacco cessation counseling when patient is able to cooperate Hyperlipidemia. Continue atorvastatin 10 mg p.o. daily Hypotension, suspect secondary to meds Monitor hemodynamics. Received 2.5 L NS bolus in the ED and BP was normal. That was 7 hours ago, now MAP is 62, appears may be sedative med related. Bolus additional 1 L NS bolus. Lactic acid normal 0.9 NaCl at 100 mL/h GI: Speech pathology to recommend diet Acute hypokalemia Check magnesium level Replace potassium per ICU electrolyte protocol. ID: Monitor for signs and symptoms of infection Urinalysis and chest x-ray are negative HEME: Follow up CBC Diabetes mellitus. Hold metformin Monitor glucose before meals/at bedtime. Low-dose insulin sliding scale as indicated Gastritis. Famotidine p.o. for stress ulcer prophylaxis. Scheduled for Famotidine p.o. for stress ulcer prophylaxis. PROPH: SCD for DVT prophylaxis. Avoid pharmacologic DVT prophylaxis at this time due to acute on chronic subdural hematoma. Caprini VTE Risk Assessment: Mod/High Risk (score >= 2) VTE Pharm Contraindication: Documented Caprini Risk Assessment Model Point Value = 1 Point Value = 2 Point Value = 3 Point Value = 5 Age 41-60 Minor surgery BMI > 25 kg/m2 Swollen legs Varicose veins or History of unexplained or recurrent spontaneous Oral contraceptives or hormone replacement Sepsis (< 1 month) Serious lung disease, including pneumonia (< 1 month) Abnormal pulmonary function Acute myocardial infarction Congestive heart failure (< 1 month) History of inflammatory bowel disease Medical patient at bed rest Age 61-74 Arthroscopic surgery Major open surgery (> 45 min) Laparoscopic surgery (> 45 min) Malignancy Confined to bed (> 72 hours) Immobilizing plaster cast Central venous access Age >= 75 History of VTE Family history of VTE Factor V Leiden Prothrombin [id number] Lupus anticoagulant Anticardiolipin antibodies Elevated serum homocysteine Heparin-induced thrombocytopenia Other congenital or acquired thrombophilia Stroke (< 1 month) Elective arthroplasty Hip, pelvis, or leg fracture Acute spinal cord injury (< 1 month) Prophylaxis Regimen Total Risk Factor Score Risk Level Prophylaxis Regimen 0-1 Low Early ambulation 2 Moderate Order ONE of the following: *Sequential Compression Device (SCD) *Heparin 5000 units SQ BID 3-4 Higher Order ONE of the following medications: *Heparin 5000 units SQ TID *Enoxaparin/Lovenox 40 mg SQ daily (WT < 150 kg, CrCl > 30 mL/min) *Enoxaparin/Lovenox 30 mg SQ daily (WT < 150 kg, CrCl > 10-29 mL/min) *Enoxaparin/Lovenox 30 mg SQ BID (WT < 150 kg, CrCl > 30 mL/min) AND/OR *Sequential Compression Device (SCD) 5 or more Highest Order ONE of the following medications: *Heparin 5000 units SQ TID (Preferred with Epidurals) *Enoxaparin/Lovenox 40 mg SQ daily (WT < 150 kg, CrCl > 30 mL/min) *Enoxaparin/Lovenox 30 mg SQ daily (WT < 150 kg, CrCl > 10-29 mL/min) *Enoxaparin/Lovenox 30 mg SQ BID (WT < 150 kg, CrCl > 30 mL/min) AND *Sequential Compression Device (SCD) Attending Statement Problem List: (1) Bipolar disorder ICD Code: F31.9 - Bipolar disorder, unspecified Status: Chronic (2) Acute on chronic intracranial subdural hematoma ICD Code: I62.01 - Nontraumatic acute subdural hemorrhage; I62.03 - Nontraumatic chronic subdural hemorrhage (3) Diabetes mellitus ICD Code: E11.9 - Type 2 diabetes mellitus without complications Status: Chronic (4) HLD (hyperlipidemia) ICD Code: E78.5 - Hyperlipidemia, unspecified Status: Chronic (5) Hypokalemia ICD Code: E87.6 - Hypokalemia Status: Acute Acute on chronic subdural. I reviewed her MRI scan Brain MRI 12/31/17 0000 Signed Impressions: Service Date/Time: Sunday, December 31, 2017 16:20 - CONCLUSION: Acute on chronic subdural hematoma right side more chronic than acute. Minimal effacement of the cortical sulci. Aakash Quintanilla MD FACR Abdomen CT 12/31/17 0000 Signed Impressions: Service Date/Time: Sunday, December 31, 2017 16:46 - CONCLUSION: 1. There is decreased density throughout the entire liver characteristic for diffuse fatty infiltration. 2. A few tiny nonobstructing bilateral renal stones are demonstrated. 3. Otherwise, unremarkable exam. Gene Owens MD Head CT [id number] Signed Impressions: Service Date/Time: Saturday, December 30, 2017 17:57 - CONCLUSION: 1. Acute on chronic right subdural hematoma. Vikash Staley Jr., MD Chest X-Ray [id number] Signed Impressions: Service Date/Time: Saturday, December 30, 2017 17:42 - CONCLUSION: No acute disease. Mitch Nix MD Continue neuro checks in a serial fashion. Will discuss with her family further alternatives of treatment Bipolar disorder. Resume meds Avoid hypotension, hyponatremia, hypothermia, hypoxemia Tobacco abuse. Albuterol every 2 hours as needed for wheezing Chest x-ray clear Monitor for airway protection On nasal cannula wean as tolerated. Incentive monitor every hour awake Counseled about Tobacco cessation Hyperlipidemia. Continue atorvastatin 10 mg p.o. daily Hypotension, suspect secondary to meds Monitor hemodynamics. Received 2.5 L NS bolus in the ED and BP was normal. That was 7 hours ago, now MAP is 62, appears may be sedative med related. Bolus additional 1 L NS bolus. Lactic acid normal 0.9 NaCl at 100 mL/h GI: Speech pathology to recommend diet Acute hypokalemia Check magnesium level Replace potassium per ICU electrolyte protocol. ID: Monitor for signs and symptoms of infection Urinalysis and chest x-ray are negative HEME: Follow up CBC Diabetes mellitus. Hold metformin Monitor glucose before meals/at bedtime. Low-dose insulin sliding scale as indicated Gastritis. Famotidine p.o. for stress ulcer prophylaxis. Scheduled for Famotidine p.o. for stress ulcer prophylaxis. PROPH: SCD for DVT prophylaxis. Avoid pharmacologic DVT prophylaxis at this time due to acute on chronic subdural hematoma. Caprini VTE Risk Assessment: Mod/High Risk (score >= 2) VTE Pharm Contraindication: Documented Caprini Risk Assessment Model Point Value = 1 Point Value = 2 Point Value = 3 Point Value = 5 Age 41-60 Minor surgery BMI > 25 kg/m2 Swollen legs Varicose veins or History of unexplained or recurrent spontaneous Oral contraceptives or hormone replacement Sepsis (< 1 month) Serious lung disease, including pneumonia (< 1 month) Abnormal pulmonary function Acute myocardial infarction Congestive heart failure (< 1 month) History of inflammatory bowel disease Medical patient at bed rest Age 61-74 Arthroscopic surgery Major open surgery (> 45 min) Laparoscopic surgery (> 45 min) Malignancy Confined to bed (> 72 hours) Immobilizing plaster cast Central venous access Age >= 75 History of VTE Family history of VTE Factor V Leiden Prothrombin [id number] Lupus anticoagulant Anticardiolipin antibodies Elevated serum homocysteine Heparin-induced thrombocytopenia Other congenital or acquired thrombophilia Stroke (< 1 month) Elective arthroplasty Hip, pelvis, or leg fracture Acute spinal cord injury (< 1 month) Prophylaxis Regimen Total Risk Factor Score Risk Level Prophylaxis Regimen 0-1 Low Early ambulation 2 Moderate Order ONE of the following: *Sequential Compression Device (SCD) *Heparin 5000 units SQ BID 3-4 Higher Order ONE of the following medications: *Heparin 5000 units SQ TID *Enoxaparin/Lovenox 40 mg SQ daily (WT < 150 kg, CrCl > 30 mL/min) *Enoxaparin/Lovenox 30 mg SQ daily (WT < 150 kg, CrCl > 10-29 mL/min) *Enoxaparin/Lovenox 30 mg SQ BID (WT < 150 kg, CrCl > 30 mL/min) AND/OR *Sequential Compression Device (SCD) 5 or more Highest Order ONE of the following medications: *Heparin 5000 units SQ TID (Preferred with Epidurals) *Enoxaparin/Lovenox 40 mg SQ daily (WT < 150 kg, CrCl > 30 mL/min) *Enoxaparin/Lovenox 30 mg SQ daily (WT < 150 kg, CrCl > 10-29 mL/min) *Enoxaparin/Lovenox 30 mg SQ BID (WT < 150 kg, CrCl > 30 mL/min) AND *Sequential Compression Device (SCD) Nick Guevara MD January 01, 2018 11:46
--- NOTE | 2018-01-01 12:56 | HHI.GIFU ---
Subjective Remarks Pt resting in bed Complaining of diarrhea but has already been started on the Golytely Denies nausea, vomiting, abdominal pain (Laurita Michel) Objective Vitals I&O Vital Signs Date Time Temp Pulse Resp B/P (MAP) Pulse Ox O2 Delivery O2 Flow Rate FiO2 01/01/18 06:00 87 01/01/18 04:00 98.6 78 12 104/56 (72) 93 01/01/18 00:00 98.0 75 14 141/69 (93) 94 12/31/17 22:30 89 Nasal Cannula 5.00 12/31/17 20:00 79 12/31/17 20:00 98.9 72 13 102/53 (69) 97 12/31/17 19:00 97 Nasal Cannula 3.00 12/31/17 17:30 100 Nasal Cannula 3.00 12/31/17 16:00 74 12/31/17 16:00 98.4 74 8 151/79 (103) 100 12/31/17 14:00 78 I/O 12/31/17 12/31/17 12/31/17 01/01/18 01/01/18 01/01/18 07:00 15:00 23:00 07:00 15:00 23:00 Intake Total 240 ml 2610 ml Output Total 2050 ml 3600 ml Balance -1810 ml -990 ml Intake Oral 240 ml 960 ml IV Total 1650 ml Output Urine Total 2050 ml 3600 ml Stool Total 0 ml # Voids 0 # Bowel Movements 0 Laboratory Laboratory Tests Test 01/01/18 03:51 Blood Urea Nitrogen 4 Creatinine 0.70 Random Glucose 191 Calcium Level 8.3 Sodium Level 145 Potassium Level 3.4 Chloride Level 111 Carbon Dioxide Level 25.8 Anion Gap 8 Estimat Glomerular Filtration Rate 85 Date/Time Source Procedure Growth Status 12/30/17 17:40 Blood Peripheral Aerobic Blood Culture - Preliminary NO GROWTH IN 2 DAYS Resulted 12/30/17 17:40 Blood Peripheral Anaerobic Blood Culture - Preliminary NO GROWTH IN 2 DAYS Resulted 12/30/17 17:40 Nasal Washing Influenza Types A,B Antigen (BEATRIZ) - Final NEGATIVE FOR FLU A AND B ANTIGEN.... Complete Imaging Last Impressions Brain MRI 12/31/17 0000 Signed Impressions: Service Date/Time: Sunday, December 31, 2017 16:20 - CONCLUSION: Acute on chronic subdural hematoma right side more chronic than acute. Minimal effacement of the cortical sulci. Aakash Quintanilla MD FACR Abdomen CT 12/31/17 0000 Signed Impressions: Service Date/Time: Sunday, December 31, 2017 16:46 - CONCLUSION: 1. There is decreased density throughout the entire liver characteristic for diffuse fatty infiltration. 2. A few tiny nonobstructing bilateral renal stones are demonstrated. 3. Otherwise, unremarkable exam. Gene Owens MD Head CT [id number]/30/[id number] Signed Impressions: Service Date/Time: Saturday, December 30, 2017 17:57 - CONCLUSION: 1. Acute on chronic right subdural hematoma. Vikash Staley Jr., MD Chest X-Ray [id number] Signed Impressions: Service Date/Time: Saturday, December 30, 2017 17:42 - CONCLUSION: No acute disease. Mitch Nix MD Physical Exam HEENT: Normocephalic; atraumatic CHEST: Even/unlabored CARDIAC: RRR ABDOMEN: Round, soft, nontender, bowel sounds active SKIN: Normal; no rash; no jaundice. TRUST ADMINISTRATOR: Alert and oriented times three. (Laurita Michel) Assessment and Plan Plan Assessment: - Rectal bleeding and diarrhea, states intermittent x 2 months Reports Imodium at home with some relief. Family history significant for bother with rectal cancer H/H currently stable CT abdomen W IV contrast (12/31) --> There is decreased density throughout the entire liver characteristic for diffuse fatty infiltration A few tiny nonobstructing bilateral renal stones are demonstrated. Otherwise, unremarkable exam. LFTs WNL. Ammonia elevated at 40 - Acid reflux/heartburn- Possible EGD 2 years ago, unsure of findings - Acute on chronic subdural bleed S/P multiple falls Plan EGD and colonoscopy tomorrow Obtain consent Clear liquids today Golytely prep NPO after MN Monitor labs Stool studies Further recommendations based on findings of above and clinical course Pt has been seen and examined by myself and Dr. Luis and this note is written on his behalf (Laurita Michel) Physician Comments Seen and exmined with JONATHAN, currently sleeping with golytle at bedside. About 200 cc left. Encouraged to complete prep. Egd/colonoscopy tomorrow. (Irasema Luis MD) Laurita Michel January 01, 2018 12:56 Irasema Luis MD January 01, 2018 21:32
[2018-01-01] MEDS: ATORVASTATIN 10 MG TAB PO SCH (20:34)
[2018-01-01] MEDS: ACETAMINOPHEN 325 MG TAB PO PRN (20:34)
[2018-01-02] VITALS (14 sets, daily range): BP systolic 97–143; BP diastolic 56–69; PULSE 66–93; RESP 14–20; TEMP 97.6–98.8; O2SAT 92–99
[2018-01-02] MEDS ORDERED: CHLORHEXIDINE GLUCONATE 2 % 1 PACK (2 CLOTHS) TOPICAL PRN (03:15)
[2018-01-02] MEDS ORDERED: POVIDONE IODINE 5% (ANTISEPSIS KIT) 4 APPLICATIONS EACH NARE PRN (03:15)
[2018-01-02] MEDS ORDERED: LACTATED RINGER'S 1000 ML IV PRN (03:15)
[2018-01-02] MEDS ORDERED: SODIUM CHLORID 0.9% 500 ML IV PRN (03:15)
[2018-01-02] MEDS: CHLORHEXIDINE GLUCONATE 2 % 1 PACK (2 CLOTHS) TOP SCH (04:00)
[2018-01-02 05:58] LABS: BICARBONATE 27.5 MEQ/L (21.0-32.0); CALCIUM 9.1 MG/DL (8.5-10.1); CREATININE 0.62 MG/DL (0.50-1.00)
[2018-01-02] MEDS: SODIUM CHLOR 0.9% 1000 ML INJ 1,000 ML IV SCH ×2 (07:43→18:56)
[2018-01-02] MEDS: INSULIN ASPART SUPPLEMENTAL SCALE SQ SCH ×4 (08:00→21:00)
[2018-01-02] MEDS: SODIUM CHLORIDE 0.9% FLUSH 10 ML FLUSH IV FLUSH SCH ×2 (08:57→20:31)
[2018-01-02] MEDS: QUEtiapine FUMARATE 300 MG TAB PO SCH ×2 (09:21→20:31)
[2018-01-02] MEDS: POTASSIUM CHLORIDE 25 MEQ EFFERVESCENT TAB PO SCH (09:21)
[2018-01-02] MEDS: LACTULOSE SYRUP 20 GM/30 ML CUP PO SCH ×2 (09:21→10:00)
[2018-01-02] MEDS: levETIRAcetam 500 MG TAB PO SCH ×2 (09:22→20:31)
[2018-01-02] MEDS: FAMOTIDINE 20 MG TAB PO SCH ×2 (09:22→20:31)
[2018-01-02] MEDS: DOCUSATE SODIUM 50 MG/SENNA 8.6 MG TAB PO SCH ×3 (09:22→21:00)
[2018-01-02] MEDS: ACETAMINOPHEN 325 MG TAB PO PRN (10:09)
--- NOTE | 2018-01-02 11:40 | GIPROC ---
[facility] [address] [facility]. [facility], [address] EGD PROCEDURE REPORT EXAM DATE: 01/02/2018 PATIENT NAME: Yael Lambert MR #: [id number] BIRTHDATE: 1955 ATTENDING: Sierra Mathur MD ORDER #: [id number] PHARMACEUTICAL WORKER: Elroy Daniels and Adeola Be STATUS: inpatient INDICATIONS: The patient is a 62 yr old female here for an EGD due to bleeding gi PROCEDURE PERFORMED: EGD w/ biopsy MEDICATIONS: None and Per Anesthesia. TOPICAL ANESTHETIC: none CONSENT: The patient understands the risks and benefits of the procedure and understands that these risks include, but are not limited to: sedation, allergic reaction, infection, perforation and/or bleeding. Alternative means of evaluation and treatment include, among others: physical exam, x-rays, and/or surgical intervention. The patient elects to proceed with this endoscopic procedure. medical equipment was checked for proper function. Hand hygiene and appropriate measures for infection prevention was taken. After the risks, benefits and alternatives of the procedure were thoroughly explained, Informed consent was verified, confirmed and timeout was successfully executed by the treatment team. The patient was anesthetized with topical anesthesia and the EC-3490Li (Pedi C) endoscope was introduced through the mouth and advanced to the second portion of the duodenum. Retroflexed views revealed a hiatal hernia The gastroscope was then slowly withdrawn and removed. Gastritis antrum-biopsy esophagitis distal esophagus-biopsy. ADVERSE EVENTS: There were no complications. IMPRESSIONS: 1. Gastritis antrum-biopsy esophagitis distal esophagus-biopsy 2. Retroflexed views revealed a hiatal hernia RECOMMENDATIONS: 1. Await biopsy results. Biopsy results will not be ready for 7-10 days. If you don't hear from us in two weeks, call our office for biopsy results. 2. Anti-reflux regimen 3. Continue PPI PATIENT CONDITION: stable DISPOSITION: Inpatient REPEAT EXAM: Return 3 years EGD Sierra Mathur MD eSigned: Sierra Mathur MD 01/02/2018 11:39 AM cc:
--- NOTE | 2018-01-02 11:42 | GIPROC ---
[facility] [address] [facility]. [facility], [address] COLONOSCOPY PROCEDURE REPORT EXAM DATE: 01/02/2018 PATIENT NAME: Yael Lambert MR #: [id number] BIRTHDATE: 1955 ENDOSCOPIST: Sierra Mathur MD ORDER #: [id number] ACTIVE DIRECTORY SPECIALIST: Elroy Daniels and Adeola Be STATUS: inpatient INDICATIONS: The patient is a 62 yr old female here for a colonoscopy due to diarrhea, bleeding PROCEDURE PERFORMED: Colonoscopy, diagnostic MEDICATIONS: None and Per Anesthesia. PREP QUALITY: poor PREP TYPE:Other: ESTIMATED BLOOD LOSS: None CONSENT: The patient understands the risks and benefits of the procedure and understands that these risks include, but are not limited to: sedation, allergic reaction, infection, perforation and/or bleeding. Alternative means of evaluation and treatment include, among others: physical exam, x-rays, and/or surgical intervention. The patient elects to proceed with this endoscopic procedure. medical equipment was checked for proper function. Hand hygiene and appropriate measures for infection prevention was taken. After the risks, benefits and alternatives of the procedure were thoroughly explained, Informed consent was verified, confirmed and timeout was successfully executed by the treatment team. A digital exam revealed external hemorrhoids and perianal nodule The Pentax EC-3490Li endoscope was introduced through the anus and advanced to the cecum, which was identified by both the appendix and ileocecal valve. The instrument was then slowly withdrawn as the colon was fully examined. COLON FINDINGS: Semisolid stool throughout colon. Retroflexed views revealed internal hemorrhoids and Retroflexed views revealed medium internal hemorrhoids The scope was then completely withdrawn from the patient and the procedure terminated. PROCEDURE WITHDRAWAL TIME:6minutes ADVERSE EVENTS: There were no complications. IMPRESSIONS: 1. Semisolid stool throughout colon 2. Retroflexed views revealed internal hemorrhoids 3. Retroflexed views revealed medium internal hemorrhoids 4. Revealed external hemorrhoids 5. Perianal nodule RECOMMENDATIONS: 1. Benefiber 2 tsp daily 2. Probiotics from any C or health food store 3. Yearly rectal exams 4. Hydrocortisone supp RECALL: Return 3 months Colonoscopy Sierra Mathur MD eSigned: Sierra Mtahur MD 01/02/2018 11:42 AM cc:
[2018-01-02] MEDS ORDERED: PROPOFOL 200 MG/20 ML AMP IV ONE (12:00)
[2018-01-02] MEDS ORDERED: LIDOCAINE HCL 1% PF 5 ML SYRINGE OTHER ONE (12:00)
[2018-01-02] MEDS ORDERED: DO NOT ADM ANY ANTICOAGULANT DRUGS PRN (12:30)
--- NOTE | 2018-01-02 14:09 | HHI.PR ---
Subjective Remarks Follow-up for acute on chronic subdural hematoma, possible chronic GI bleed. Patient is currently doing well. She is about to go to GI lab for EGD and colonoscopy at the time of this interview. Patient denies any chest pain, shortness of breath, fever or chills. Objective Vitals Vital Signs Date Time Temp Pulse Resp B/P (MAP) Pulse Ox O2 Delivery O2 Flow Rate FiO2 01/02/18 11:45 97.9 79 16 117/67 (84) 98 Room Air 01/02/18 10:45 97.9 93 16 115/60 (78) 99 01/02/18 10:36 97.9 93 16 115/60 (78) 92 01/02/18 10:00 70 01/02/18 08:00 83 01/02/18 08:00 98.8 83 17 113/66 (82) 94 01/02/18 07:00 93 Room Air 01/02/18 06:00 73 01/02/18 04:00 78 01/02/18 04:00 98.0 78 14 97/56 (70) 96 01/02/18 02:00 66 01/02/18 00:00 72 01/02/18 00:00 98.1 72 14 102/67 (79) 94 01/01/18 22:00 75 01/01/18 20:00 98.8 76 14 128/67 (87) 96 01/01/18 20:00 76 01/01/18 19:00 96 2.00 01/01/18 18:00 76 01/01/18 16:00 98.4 80 16 131/72 (91) 100 01/01/18 16:00 80 01/01/18 14:00 90 I/O 01/01/18 01/01/18 01/01/18 01/02/18 01/02/18 01/02/18 07:00 15:00 23:00 07:00 15:00 23:00 Intake Total 2610 ml 40815 ml 480 ml 300 ml Output Total 3600 ml 29235 ml 1325 ml Balance -990 ml 1200 ml -845 ml 300 ml Intake Oral 960 ml 5600 ml 480 ml Oral Supplement 1600 ml IV Total 1650 ml Other 4000 ml 300 ml Output Urine Total 3600 ml 37993 ml 1325 ml # Bowel Movements 0 9 0 Result Diagram: 12/31/17 0236 01/02/18 0523 Imaging Last Impressions Brain MRI 12/31/17 0000 Signed Impressions: Service Date/Time: Sunday, December 31, 2017 16:20 - CONCLUSION: Acute on chronic subdural hematoma right side more chronic than acute. Minimal effacement of the cortical sulci. Aakash Quintanilla MD FACR Abdomen CT 12/31/17 0000 Signed Impressions: Service Date/Time: Sunday, December 31, 2017 16:46 - CONCLUSION: 1. There is decreased density throughout the entire liver characteristic for diffuse fatty infiltration. 2. A few tiny nonobstructing bilateral renal stones are demonstrated. 3. Otherwise, unremarkable exam. Gene Owens MD Head CT 12/30/171728 Signed Impressions: Service Date/Time: Saturday, December 30, 2017 17:57 - CONCLUSION: 1. Acute on chronic right subdural hematoma. Vikash Staley Jr., MD Chest X-Ray 12/30/171728 Signed Impressions: Service Date/Time: Saturday, December 30, 2017 17:42 - CONCLUSION: No acute disease. Mitch Nix MD Objective Remarks GENERAL: Alert, oriented 3, NAD. SKIN: Warm and dry. HEAD: Normocephalic. EYES: No scleral icterus. No injection or drainage. NECK: Supple, trachea midline. No JVD or lymphadenopathy. CARDIOVASCULAR: Regular rate and rhythm without murmurs, gallops, or rubs. RESPIRATORY: Breath sounds equal bilaterally. No accessory muscle use. GASTROINTESTINAL: Abdomen soft, non-tender, nondistended. MUSCULOSKELETAL: No cyanosis, or edema. BACK: Nontender without obvious deformity. No CVA tenderness. Procedures EGD and colonoscopy 01/02/2018 1. Gastritis antrum-biopsy esophagitis distal esophagus-biopsy 2. Retroflexed views revealed a hiatal hernia 1. Semisolid stool throughout colon 2. Retroflexed views revealed internal hemorrhoids 3. Retroflexed views revealed medium internal hemorrhoids 4. Revealed external hemorrhoids 5. Perianal nodule A/P Problem List: (1) Acute on chronic intracranial subdural hematoma ICD Code: I62.01 - Nontraumatic acute subdural hemorrhage; I62.03 - Nontraumatic chronic subdural hemorrhage Assessment and Plan Ms. Lambert is a 52-year-old female with past medical history of bipolar disorder, diabetes, hyperlipidemia, insomnia, cocaine abuse who presented to [facility] emergency department with a 2-3 day history of lethargy. Workup at [facility] included CT brain that demonstrated 1.5 cm chronic subdural with some acute component, without midline shift. She is not on any anticoagulant or antiplatelet therapy. Coags and platelet counts are normal. MRI on 12/31/2017 shows acute on chronic subdural hematoma right side more chronic than acute. Neurosurgery has been following patient. Patient reported some bright red blood per rectum off and on for 2 months. GI was consulted and patient underwent EGD/colonoscopy on 01/02/2018. Acute on chronic subdural hematoma Generalized lethargy -Neurosurgery following. No surgical intervention recommended. -Continue atorvastatin 10 mg nightly. -Continue clonazepam 2 mg every 8 hours as needed for agitation. Will consider reducing the dose. -Continue Keppra 500 mg p.o. twice daily. Bipolar disorder Hx of Cocaine abuse Insomnia -Continue Seroquel 300 mg twice daily. diabetes mellitus -Patient takes metformin at home. Will hold it for now. Continue sliding scale insulin. Full code. No pharmacological DVT prophylaxis due to subdural hematoma. Continue SCDs. Tye Adams DO January 02, 2018 2:09 pm
--- NOTE | 2018-01-02 14:36 | HHI.NSPN ---
(Tanika Heath) Note Status Status: Progress Note (Tanika Heath) Interval History Interval History This is a 52-year-old female with past medical history of bipolar disorder, diabetes, hyperlipidemia, insomnia, cocaine abuse who presented to [facility] emergency department with a 2-3 day history of lethargy. She has recently been admitted ( last 2-3 months) to [facility] for falls with subdural hematoma and had reportedly refused rehab. No seizure activity noted. No tongue bitting. No incontinence of stool or urine. Aparently she has been manageged nonoperatively at [facility] and her condition is deteriorating. She is not on any anticoagulant or antiplatelet therapy. Coags and platelet counts are normal. Urine drug screen and alcohol level are negative. She is also on trazodone, klonopin, and ambien prescribed by her psychiatrist and her daughter had expressed concern to Dr. Mckeon that she was overmedicated. CT brain that demonstrated 1.5 cm chronic subdural with some acute component, without midline shift. Neurosurgery consultation was requested 12/31. Apears more awake. Alert, oriented to self. Follows commands 11/01. Clinically improved today 01/02: Complaints of generalized weakness, reports to feel better when mobilizing out of bed, sat up in chair yesterday. Denies any headaches, focal weakness, vomiting, seizures. (Tanika Heath) Labs, Micro, & Vital Signs Results Date Time Temp Pulse Resp B/P (MAP) Pulse Ox O2 Delivery O2 Flow Rate FiO2 01/02/18 11:45 97.9 79 16 117/67 (84) 98 Room Air 01/02/18 10:45 97.9 93 16 115/60 (78) 99 01/02/18 10:36 97.9 93 16 115/60 (78) 92 01/02/18 10:00 70 01/02/18 08:00 83 01/02/18 08:00 98.8 83 17 113/66 (82) 94 01/02/18 07:00 93 Room Air 01/02/18 06:00 73 01/02/18 04:00 78 01/02/18 04:00 98.0 78 14 97/56 (70) 96 01/02/18 02:00 66 01/02/18 00:00 72 01/02/18 00:00 98.1 72 14 102/67 (79) 94 01/01/18 22:00 75 01/01/18 20:00 98.8 76 14 128/67 (87) 96 01/01/18 20:00 76 01/01/18 19:00 96 2.00 01/01/18 18:00 76 01/01/18 16:00 98.4 80 16 131/72 (91) 100 01/01/18 16:00 80 01/03/18 07:00 Intake Total 300 ml Balance 300 ml Constitutional Vital Signs Date Time Temp Pulse Resp B/P (MAP) Pulse Ox O2 Delivery O2 Flow Rate FiO2 01/02/18 11:45 97.9 79 16 117/67 (84) 98 Room Air 01/02/18 10:45 97.9 93 16 115/60 (78) 99 01/02/18 10:36 97.9 93 16 115/60 (78) 92 01/02/18 10:00 70 01/02/18 08:00 83 01/02/18 08:00 98.8 83 17 113/66 (82) 94 01/02/18 07:00 93 Room Air 01/02/18 06:00 73 01/02/18 04:00 78 01/02/18 04:00 98.0 78 14 97/56 (70) 96 01/02/18 02:00 66 01/02/18 00:00 72 01/02/18 00:00 98.1 72 14 102/67 (79) 94 01/01/18 22:00 75 01/01/18 20:00 98.8 76 14 128/67 (87) 96 01/01/18 20:00 76 01/01/18 19:00 96 2.00 01/01/18 18:00 76 01/01/18 16:00 98.4 80 16 131/72 (91) 100 01/01/18 16:00 80 01/03/18 07:00 Intake Total 300 ml Balance 300 ml (Tanika Heath) Review of Systems Constitutional: COMPLAINS OF: Fatigue, DENIES: Fever, Chills Eyes: DENIES: Diplopia Cardiovascular: DENIES: Chest pain Neurologic: DENIES: Headache, Localized weakness (Tanika Heath) Physical Exam GENERAL: Ms Lambert is laying in bed NEUROLOGICAL: Alert, awake, Oriented to self. Moderate to severe cognitive impairment. Speech is slow, and mildly dysarthric. DTRs are 2+ patellar bilaterally. No abnormal response to Babinski . No clonus. She moves all 4 extremities against gravity symmetrically. SKIN: Warm and dry. There is an abrasion overlying her left knee. HEAD: Atraumatic. Normocephalic. EYES: Pupils equal and round reactive bilaterally. No scleral icterus. No injection or drainage. ENT: No nasal bleeding or discharge. Mucous membranes dry NECK: Soft and supple CARDIOVASCULAR: Regular rate and rhythm RESPIRATORY: Breathing comfortably with no accessory muscle use. GASTROINTESTINAL: Abdomen soft, non-tender, nondistended. MUSCULOSKELETAL: Extremities without clubbing, cyanosis, or edema. No obvious deformities. (Tanika Heath) GENERAL: Ms Lambert is in no distress, laying in bed NEUROLOGICAL: Alert, awake, Oriented to self. Moderate to severe cognitive impairment. Speech is slow, and mildly dysarthric. DTRs are 2+ patellar bilaterally. No abnormal response to Babinski . No clonus. She moves all 4 extremities against gravity symmetrically. SKIN: Warm and dry. There is an abrasion overlying her left knee. HEAD: Atraumatic. Normocephalic. EYES: Pupils equal and round reactive bilaterally. No scleral icterus. No injection or drainage. ENT: No nasal bleeding or discharge. Mucous membranes dry NECK: Soft and supple CARDIOVASCULAR: Regular rate and rhythm RESPIRATORY: Breathing comfortably with no accessory muscle use. GASTROINTESTINAL: Abdomen soft, non-tender, nondistended. MUSCULOSKELETAL: Extremities without clubbing, cyanosis, or edema. No obvious deformities. (Nick Guevara MD) Medications Current Medications Current Medications Medications (Trade) Dose Ordered Sig/Alfredo Route PRN Reason Start Time Stop Time Status Last Admin Dose Admin Dextrose (D50w (Vial) Inj) 50 ml UNSCH PRN IV PUSH HYPOGLYCEMIA-SEE COMMENTS 12/30/17 19:45 Glucagon (Glucagon Inj) 1 mg UNSCH PRN OTHER HYPOGLYCEMIA-SEE COMMENTS 12/30/17 19:45 Insulin Aspart (NovoLOG SUPPLEMENTAL SCALE) 1 ACHS SLIDING SCALE SQ 12/30/17 21:00 01/01/18 20:36 Sodium Chloride 1,000 ml @ 100 mls/hr Q10H IV 12/30/17 19:43 12/31/17 23:46 Metoclopramide HCl (Reglan Inj) 5 mg Q6H PRN IV PUSH NAUSEA OR VOMITING 12/30/17 19:45 Acetaminophen (Tylenol) 650 mg Q6H PRN PO FEVER/PAIN SCALE 1 TO 2 12/30/17 19:45 01/02/18 10:09 Acetaminophen/ Hydrocodone Bitart ([place] 5-325 Mg) 1 tab Q4H PRN PO PAIN SCALE 3 TO 5 12/30/17 19:45 Morphine Sulfate (Morphine Inj) 2 mg Q3H PRN IV PUSH Pain 6-10 12/30/17 20:30 Senna/Docusate Sodium (Sandra-Colace) 1 tab BID PO 12/30/17 21:00 01/01/18 20:34 Magnesium Hydroxide (Milk Of Magnesia Liq) 30 ml Q12H PRN PO Mild constipation 12/30/17 19:45 Sennosides (Senokot) 17.2 mg Q12H PRN PO Moderate constipation 12/30/17 19:45 Bisacodyl (Dulcolax Supp) 10 mg DAILY PRN RECTAL SEVERE CONSITIPATION 12/30/17 19:45 Lactulose (Lactulose Liq) 30 ml DAILY PRN PO SEVERE CONSITIPATION 12/30/17 19:45 Aripiprazole (Abilify) 15 mg DAILY PO 12/31/17 09:00 Future Hold Atorvastatin Calcium (Lipitor) 10 mg HS PO 12/30/17 21:00 01/01/18 20:34 Clonazepam (KlonoPIN) 2 mg TID PO 12/31/17 09:00 Future Hold Levetriacetam (Keppra) 500 mg BID PO 12/30/17 21:00 01/02/18 09:22 Potassium Chloride 100 ml @ 50 mls/hr Q2H PRN IV For Potassium 2.8 - 3.2 mEq/L 12/30/17 20:00 Potassium Chloride 100 ml @ 50 mls/hr Q2H PRN IV For Potassium 2.8 - 3.2 mEq/L 12/30/17 20:00 Potassium Bicarb/ Potassium Chloride (K-Lyte Cl Eff) 50 meq UNSCH PRN PO For Potassium 3.3 - 3.5 mEq/L 12/30/17 20:00 Potassium Chloride 100 ml @ 25 mls/hr UNSCH PRN IV For Potassium 3.3 - 3.5 mEq/L 12/30/17 20:00 Potassium Chloride 100 ml @ 50 mls/hr Q2H PRN IV For Potassium 3.3 - 3.5 mEq/L 12/30/17 20:00 01/01/18 06:19 Magnesium Sulfate 4 gm/Sodium Chloride 100 ml @ 50 mls/hr UNSCH PRN IV For Magnesium 0.9 - 1.1 mg/dL 12/30/17 20:00 Magnesium Oxide (Mag-Ox) 800 mg UNSCH PRN PO For Magnesium 1.2 - 1.6 mg/dL 12/30/17 20:00 Magnesium Sulfate 2 gm/Sodium Chloride 100 ml @ 50 mls/hr UNSCH PRN IV For Magnesium 1.2 - 1.6 mg/dL 12/30/17 20:00 Potassium Phosphate (K-Phos) 2,000 mg Q4H PRN PO For Phosphorus < 2.5 mg/dL 12/30/17 20:00 Sodium Phosphate 30 mmol/Sodium Chloride 250 ml @ 42 mls/hr UNSCH PRN IV For Phosphorus < 2.5 mg/dL 12/30/17 20:00 Potassium Phosphate (K-Phos) 2,000 mg UNSCH PRN PO/TUBE SEE LABEL COMMENTS 12/30/17 20:00 Potassium Phosphate 30 mmol/ Sodium Chloride 260 ml @ 42 mls/hr UNSCH PRN IV SEE LABEL COMMENTS 12/30/17 20:00 Sodium Chloride (NS Flush) 2 ml UNSCH PRN IV FLUSH FLUSH AFTER USING IV ACCESS 12/30/17 20:00 Sodium Chloride (NS Flush) 2 ml BID IV FLUSH 12/30/17 21:00 01/01/18 09:00 Albuterol Sulfate (Albuterol Neb) 2.5 mg Q2HR NEB PRN INH SOB/WHEEZING 12/30/17 20:00 Miscellaneous Information ([facility]) 1 Q361D XX 12/30/17 20:00 12/30/17 01:00 Chlorhexidine Gluconate (Chlorhexidine 2% Cloth) 3 pack Taper DAILY@04 TOP 12/31/17 04:00 12/27/18 03:59 12/31/17 01:27 Chlorhexidine Gluconate (Chlorhexidine 2% Cloth) 3 pack UNSCH PRN TOP HYGIENIC CARE 12/30/17 20:00 Famotidine (Pepcid) 20 mg BID PO 12/30/17 21:00 01/02/18 09:22 Lactulose (Lactulose Liq) 30 ml DAILY PO 12/31/17 09:00 01/01/18 09:21 Clonazepam (KlonoPIN) 2 mg Q8HR PRN PO agitation 12/31/17 18:30 01/01/18 19:15 Quetiapine Fumarate (SEROquel) 300 mg BID PO 12/31/17 21:00 01/02/18 09:21 Potassium Bicarb/ Potassium Chloride (K-Lyte Cl Eff) 25 meq DAILY PO 01/01/18 11:45 01/02/18 09:21 Lactated Ringer's 1,000 ml @ 30 mls/hr Q24H PRN IV SEE LABEL COMMENTS 01/02/18 03:15 01/05/18 03:14 Sodium Chloride 500 ml @ 30 mls/hr [id number] PRN IV SEE LABEL COMMENTS 01/02/18 03:15 01/05/18 03:14 Povidone Iodine (Betadine 5% Antisepsis Kit) 1 applic SAFETY INSTRUCTOR PRN EACH NARE SEE LABEL COMMENTS 01/02/18 03:15 01/05/18 03:14 Chlorhexidine Gluconate (Chlorhexidine 2% Cloth) 3 pack SAFETY INSTRUCTOR PRN TOPICAL SEE LABEL COMMENTS 01/02/18 03:15 01/05/18 03:14 Hydrocortisone Acetate (Hemorrhoidal Hc Supp) 25 mg BID RECTAL 01/02/18 21:00 Miscellaneous Information ([facility] Information) ALL NURSING DEPARTME... UNSCH PRN .XX SEE LABEL COMMENTS 01/02/18 12:30 01/03/18 12:29 (Tanika Heath) Current Medications Current Medications Sodium Chloride 500 ml @ 500 mls/hr BOLUS ONCE IV Last administered on at 18:23; Start 12/30/17 at 18:00; Stop 12/30/17 at 18:59; Status DC Sodium Chloride 1,000 ml @ 999 mls/hr BOLUS ONCE IV Last administered on 12/30at 19:13; Start 12/30/17 at 19:15; Stop 12/30/17 at 20:15; Status DC Sodium Chloride 1,000 ml @ 999 mls/hr BOLUS ONCE IV Last administered on 12/30at 19:14; Start 12/30/17 at 19:15; Stop 12/30/17 at 20:15; Status DC Dextrose (D50w (Vial) Inj) 50 ml UNSCH PRN IV PUSH HYPOGLYCEMIA-SEE COMMENTS; Start 12/30/17 at 19:45; Stop 01/06/18 at 16:38; Status DC Glucagon (Glucagon Inj) 1 mg UNSCH PRN OTHER HYPOGLYCEMIA-SEE COMMENTS; Start 12/30/17 at 19:45; Stop 01/06/18 at 16:38; Status DC Insulin Aspart (NovoLOG SUPPLEMENTAL SCALE) 1 ACHS SLIDING SCALE SQ Last administered on 01/06/18at 09:36; Start 12/30/17 at 21:00; Stop 01/06/18 at 16:38 ; Status DC Sodium Chloride 1,000 ml @ 100 mls/hr Q10H IV Last administered on 01/03/18at 03:43; Start 12/30/17 at 19:43; Stop 01/03/18 at 16:44; Status DC Sodium Chloride (NS Flush) 2 ml UNSCH PRN IV FLUSH FLUSH AFTER USING IV ACCESS ; Start 12/30/17 at 19:45; Stop 12/30/17 at 20:17; Status DC Sodium Chloride (NS Flush) 2 ml BID IV FLUSH ; Start 12/30/17 at 21:00; Stop 07/09 at 21:00; Status DC Metoclopramide HCl (Reglan Inj) 5 mg Q6H PRN IV PUSH NAUSEA OR VOMITING; Start 12/30/17 at 19:45; Stop 01/06/18 at 16:38; Status DC Acetaminophen (Tylenol) 650 mg Q6H PRN PO FEVER/PAIN SCALE 1 TO 2 Last administered on 01/02/18at 10:09; Start 12/30/17 at 19:45; Stop 01/06/18 at 16:38 ; Status DC Acetaminophen/ Hydrocodone Bitart ([place] 5-325 Mg) 1 tab Q4H PRN PO PAIN SCALE 3 TO 5 Last administered on 01/06/18at 13:54; Start 12/30/17 at 19:45; Stop 01/06/18 at 16:38; Status DC Morphine Sulfate (Morphine Inj) 2 mg Q3H PRN IV PUSH Pain 6-10; Start 12/30/17 at 20:30; Stop 01/06/18 at 16:38; Status DC Senna/Docusate Sodium (Sandra-Colace) 1 tab BID PO Last administered on at 09:35; Start 12/30/17 at 21:00; Stop 01/06/18 at 16:38; Status DC Magnesium Hydroxide (Milk Of Magnesia Liq) 30 ml Q12H PRN PO Mild constipation ; Start 12/30/17 at 19:45; Stop 01/06/18 at 16:38; Status DC Sennosides (Senokot) 17.2 mg Q12H PRN PO Moderate constipation; Start 12/30/17 at 19:45; Stop 01/06/18 at 16:38; Status DC Bisacodyl (Dulcolax Supp) 10 mg DAILY PRN RECTAL SEVERE CONSITIPATION; Start at 19:45; Stop 01/06/18 at 16:38; Status DC Lactulose (Lactulose Liq) 30 ml DAILY PRN PO SEVERE CONSITIPATION; Start at 19:45; Stop 01/06/18 at 16:38; Status DC Aripiprazole (Abilify) 15 mg DAILY PO ; Start 12/31/17 at 09:00; Stop 01/06/18 at 16:38; Status DC Atorvastatin Calcium (Lipitor) 10 mg HS PO Last administered on 01/05/18at 20:35 ; Start 12/30/17 at 21:00; Stop 01/06/18 at 16:38; Status DC Clonazepam (KlonoPIN) 2 mg TID PO Last administered on 01/04/18at 01:43; Start 12/31/17 at 09:00; Stop 01/04/18 at 12:09; Status DC Levetriacetam (Keppra) 500 mg BID PO Last administered on 01/06/18at 09:35; Start 12/30/17 at 21:00; Stop 01/06/18 at 16:38; Status DC Non-Formulary Medication 150 mg BID PO ; Start 12/30/17 at 21:00; Stop 12/30/17 at 21:00; Status DC Potassium Chloride 100 ml @ 50 mls/hr Q2H PRN IV For Potassium 2.8 - 3.2 mEq/L ; Start 12/30/17 at 20:00; Stop 01/05/18 at 14:30; Status DC Potassium Chloride 100 ml @ 50 mls/hr Q2H PRN IV For Potassium 2.8 - 3.2 mEq/L ; Start 12/30/17 at 20:00; Stop 01/05/18 at 14:30; Status DC Potassium Bicarb/ Potassium Chloride (K-Lyte Cl Eff) 50 meq UNSCH PRN PO For Potassium 3.3 - 3.5 mEq/L; Start 12/30/17 at 20:00; Stop 01/05/18 at 14:30; Status DC Potassium Chloride 100 ml @ 25 mls/hr UNSCH PRN IV For Potassium 3.3 - 3.5 mEq /L; Start 12/30/17 at 20:00; Stop 01/05/18 at 14:30; Status DC Potassium Chloride 100 ml @ 50 mls/hr Q2H PRN IV For Potassium 3.3 - 3.5 mEq/ L Last administered on 01/01/18at 06:19; Start 12/30/17 at 20:00; Stop 01/05/18 at 14:30; Status DC Magnesium Sulfate 4 gm/Sodium Chloride 100 ml @ 50 mls/hr UNSCH PRN IV For Magnesium 0.9 - 1.1 mg/dL; Start 12/30/17 at 20:00; Stop 01/05/18 at 14:30; Status DC Magnesium Oxide (Mag-Ox) 800 mg UNSCH PRN PO For Magnesium 1.2 - 1.6 mg/dL; Start 12/30/17 at 20:00; Stop 01/05/18 at 14:30; Status DC Magnesium Sulfate 2 gm/Sodium Chloride 100 ml @ 50 mls/hr UNSCH PRN IV For Magnesium 1.2 - 1.6 mg/dL; Start 12/30/17 at 20:00; Stop 01/05/18 at 14:30; Status DC Potassium Phosphate (K-Phos) 2,000 mg Q4H PRN PO For Phosphorus < 2.5 mg/dL; Start 12/30/17 at 20:00; Stop 01/05/18 at 14:30; Status DC Sodium Phosphate 30 mmol/Sodium Chloride 250 ml @ 42 mls/hr UNSCH PRN IV For Phosphorus < 2.5 mg/dL; Start 12/30/17 at 20:00; Stop 01/05/18 at 14:30; Status DC Potassium Phosphate (K-Phos) 2,000 mg UNSCH PRN PO/TUBE SEE LABEL COMMENTS; Start 12/30/17 at 20:00; Stop 01/05/18 at 14:30; Status DC Potassium Phosphate 30 mmol/ Sodium Chloride 260 ml @ 42 mls/hr UNSCH PRN IV SEE LABEL COMMENTS; Start 12/30/17 at 20:00; Stop 01/05/18 at 14:30; Status DC Potassium Chloride 100 ml @ 50 mls/hr ONCE ONCE IV Last administered on at 20:12; Start 12/30/17 at 20:00; Stop 12/30/17 at 21:59; Status DC Sodium Chloride (NS Flush) 2 ml UNSCH PRN IV FLUSH FLUSH AFTER USING IV ACCESS ; Start 12/30/17 at 20:00; Stop 01/06/18 at 16:38; Status DC Sodium Chloride (NS Flush) 2 ml BID IV FLUSH Last administered on 01/06/18at 09: 36; Start 12/30/17 at 21:00; Stop 01/06/18 at 16:38; Status DC Albuterol Sulfate (Albuterol Neb) 2.5 mg Q2HR NEB PRN INH SOB/WHEEZING; Start 12/30/17 at 20:00; Stop 01/06/18 at 16:38; Status DC Miscellaneous Information ([facility] Information) 1 Q361D XX Last administered on 12/30/17at 01:00; Start 12/30/17 at 20:00; Stop 01/06/18 at 16:38 ; Status DC Chlorhexidine Gluconate (Chlorhexidine 2% Cloth) Taper DAILY@04 TOP Last administered on 12/31/17at 01:27; Start 12/31/17 at 04:00; Stop 01/06/18 at 16:38 ; Status DC Chlorhexidine Gluconate (Chlorhexidine 2% Cloth) 3 pack UNSCH PRN TOP HYGIENIC CARE; Start 12/30/17 at 20:00; Stop 01/06/18 at 16:38; Status DC Famotidine (Pepcid) 20 mg BID PO Last administered on 01/06/18at 09:35; Start at 21:00; Stop 01/06/18 at 16:38; Status DC Sodium Chloride 1,000 ml @ 999 mls/hr BOLUS ONCE IV Last administered on 12/31at 01:15; Start 12/31/17 at 01:15; Stop 12/31/17 at 02:15; Status DC Lactulose (Lactulose Liq) 30 ml DAILY PO Last administered on 01/06/18at 09:37; Start 12/31/17 at 09:00; Stop 01/06/18 at 16:38; Status DC Polyethylene Glycol/ Electrolytes (Colyte Liq) 4,000 ml ONCE ONCE PO Last administered on 12/31/17at 10:53; Start 12/31/17 at 10:00; Stop 12/31/17 at 10:03 ; Status DC Diatrizoate Meglum/ Diatrizoate Sod ( Gastroview Liq) 18 ml ONCE ONCE PO Last administered on 12/31/17at 13:20; Start 12/31/17 at 12:00; Stop 12/31/17 at 12:01; Status DC Iohexol (Omnipaque 350 Inj) 95 ml STK-MED ONCE IVCONTRAST Last administered on 12/31/17at 17:13; Start 12/31/17 at 17:13; Stop 12/31/17 at 17:14; Status DC Clonazepam (KlonoPIN) 2 mg Q8HR PRN PO agitation Last administered on at 19:15; Start 12/31/17 at 18:30; Stop 01/03/18 at 10:22; Status DC Quetiapine Fumarate (SEROquel) 300 mg BID PO Last administered on 01/06/18at 09: 35; Start 12/31/17 at 21:00; Stop 01/06/18 at 16:38; Status DC Potassium Bicarb/ Potassium Chloride (K-Lyte Cl Eff) 25 meq DAILY PO Last administered on 5/18/18at 09:37; Start 01/01/18 at 11:45; Stop 01/06/18 at 16:38 ; Status DC Lactated Ringer's 1,000 ml @ 30 mls/hr Q24H PRN IV SEE LABEL COMMENTS; Start at 03:15; Stop 01/05/18 at 03:14; Status DC Sodium Chloride 500 ml @ 30 mls/hr [id number] PRN IV SEE LABEL COMMENTS; Start at 03:15; Stop 01/05/18 at 03:14; Status DC Povidone Iodine (Betadine 5% Antisepsis Kit) 1 applic SAFETY INSTRUCTOR PRN EACH NARE SEE LABEL COMMENTS; Start 01/02/18 at 03:15; Stop 01/05/18 at 03:14; Status DC Chlorhexidine Gluconate (Chlorhexidine 2% Cloth) 3 pack SAFETY INSTRUCTOR PRN TOPICAL SEE LABEL COMMENTS; Start 01/02/18 at 03:15; Stop 01/05/18 at 03:14; Status DC Hydrocortisone Acetate (Hemorrhoidal Hc Supp) 25 mg BID RECTAL Last administered on 01/06/18at 09:37; Start 01/02/18 at 21:00; Stop 01/06/18 at 16:38 ; Status DC Miscellaneous Information ([facility] Information) ALL NURSING DEPARTME... UNSCH PRN .XX SEE LABEL COMMENTS; Start 01/02/18 at 12:30; Stop 01/03/18 at 12: 29; Status DC Clonazepam (KlonoPIN) 1 mg Q8HR PRN PO agitation Last administered on at 13:49; Start 01/03/18 at 14:00; Stop 01/04/18 at 11:34; Status DC Propofol (Diprivan 200 Mg/20 ml Inj) 200 mg STK-MED ONCE IV ; Start 01/02/18 at 12:00; Stop 01/03/18 at 11:10; Status DC Lidocaine HCl (Xylocaine-Mpf 1% Inj) 5 ml STK-MED ONCE OTHER ; Start 01/02/18 at 12:00; Stop 01/03/18 at 11:10; Status DC Clonazepam (KlonoPIN) 1 mg Q8HR PO Last administered on 01/06/18at 13:54; Start 01/04/18 at 14:00; Stop 01/06/18 at 16:38; Status DC Insulin Detemir (Levemir Inj) 7 units HS SQ Last administered on 01/04/18at 21: 25; Start 01/04/18 at 21:00; Stop 01/05/18 at 11:06; Status DC Trazodone HCl (Desyrel) 50 mg HS PRN PO INSOMNIA; Start 01/04/18 at 21:00; Stop 01/06/18 at 16:38; Status DC Metformin HCl (Glucophage) 1,000 mg BIDPC PO Last administered on 01/06/18at 09: 35; Start 01/05/18 at 18:00; Stop 01/06/18 at 16:38; Status DC (Nick Guevara MD) Medical Decision Making MDM Remarks 62-year-old female with acute on chronic right subdural hematoma Brain MRI 12/31/17 0000 Signed Impressions: Service Date/Time: Sunday, December 31, 2017 16:20 - CONCLUSION: Acute on chronic subdural hematoma right side more chronic than acute. Minimal effacement of the cortical sulci. Aakash Quintanilla MD FACR Head CT 12/30/17 1729 Signed Impressions: Service Date/Time: Saturday, December 30, 2017 17:57 - CONCLUSION: 1. Acute on chronic right subdural hematoma. Vikash Staley Jr., MD (Tanika Heath) Plan Plan Remarks Continue nonoperative management of subdural hematoma, Continue neuro checks, Avoid falls and head trauma, Continue medical management, Continue therapy and rehab SCDs and teds for DVT prophylaxis, avoid chemical prophylaxis due to subdural hematoma at this time Protonix for GI prophylaxis Will sign off, call if needed (Tanika Heath) Attending Statement Continue nonoperative treatment of subdural hematoma. Serial neuro checks., I reviewed her MRI Hold meds including Abilify 15 mg p.o. daily, Klonopin 2 mg p.o. 3 times daily, trazodone 150 twice daily, Ambien 10 mg nightly. Tylenol and salicylate level were negative. Check ammonia level in a.m. Daily PT Tobacco abuse. Albuterol every 2 hours as needed for wheezing Chest x-ray clear Monitor for airway protection On nasal cannula wean as tolerated. Incentive monitor every hour awake Tobacco cessation counseling when patient is able to cooperate Hyperlipidemia. Continue atorvastatin 10 mg p.o. daily Hypotension, suspect secondary to meds Monitor hemodynamics. Received 2.5 L NS bolus in the ED and BP was normal. That was 7 hours ago, now MAP is 62, appears may be sedative med related. Bolus additional 1 L NS bolus. Lactic acid normal 0.9 NaCl at 100 mL/h GI: Speech pathology to recommend diet Acute hypokalemia Check magnesium level Replace potassium per ICU electrolyte protocol. ID: Monitor for signs and symptoms of infection Urinalysis and chest x-ray are negative HEME: Follow up CBC Diabetes mellitus. Hold metformin Monitor glucose before meals/at bedtime. Low-dose insulin sliding scale as indicated Gastritis. Famotidine p.o. for stress ulcer prophylaxis. Scheduled for Famotidine p.o. for stress ulcer prophylaxis. PROPH: SCD for DVT prophylaxis. Avoid pharmacologic DVT prophylaxis at this time due to acute on chronic subdural hematoma. Caprini VTE Risk Assessment: Mod/High Risk (score >= 2) VTE Pharm Contraindication: Documented Caprini Risk Assessment Model Point Value = 1 Point Value = 2 Point Value = 3 Point Value = 5 Age 41-60 Minor surgery BMI > 25 kg/m2 Swollen legs Varicose veins or History of unexplained or recurrent spontaneous Oral contraceptives or hormone replacement Sepsis (< 1 month) Serious lung disease, including pneumonia (< 1 month) Abnormal pulmonary function Acute myocardial infarction Congestive heart failure (< 1 month) History of inflammatory bowel disease Medical patient at bed rest Age 61-74 Arthroscopic surgery Major open surgery (> 45 min) Laparoscopic surgery (> 45 min) Malignancy Confined to bed (> 72 hours) Immobilizing plaster cast Central venous access Age >= 75 History of VTE Family history of VTE Factor V Leiden Prothrombin 50934H Lupus anticoagulant Anticardiolipin antibodies Elevated serum homocysteine Heparin-induced thrombocytopenia Other congenital or acquired thrombophilia Stroke (< 1 month) Elective arthroplasty Hip, pelvis, or leg fracture Acute spinal cord injury (< 1 month) Prophylaxis Regimen Total Risk Factor Score Risk Level Prophylaxis Regimen 0-1 Low Early ambulation 2 Moderate Order ONE of the following: *Sequential Compression Device (SCD) *Heparin 5000 units SQ BID 3-4 Higher Order ONE of the following medications: *Heparin 5000 units SQ TID *Enoxaparin/Lovenox 40 mg SQ daily (WT < 150 kg, CrCl > 30 mL/min) *Enoxaparin/Lovenox 30 mg SQ daily (WT < 150 kg, CrCl > 10-29 mL/min) *Enoxaparin/Lovenox 30 mg SQ BID (WT < 150 kg, CrCl > 30 mL/min) AND/OR *Sequential Compression Device (SCD) 5 or more Highest Order ONE of the following medications: *Heparin 5000 units SQ TID (Preferred with Epidurals) *Enoxaparin/Lovenox 40 mg SQ daily (WT < 150 kg, CrCl > 30 mL/min) *Enoxaparin/Lovenox 30 mg SQ daily (WT < 150 kg, CrCl > 10-29 mL/min) *Enoxaparin/Lovenox 30 mg SQ BID (WT < 150 kg, CrCl > 30 mL/min) AND *Sequential Compression Device (SCD) The exam, history, and the medical decision-making described in the above note were completed with the assistance of the mid-level provider. I reviewed and agree with the findings presented. I attest that I had a [id number] encounter with the patient on the same day, and personally performed and documented my assessment and findings in the medical record. (Nick Guevara MD) Tanika Heath January 02, 2018 14:36 Nick Guevara MD January 07, 2018 14:58
[2018-01-02] MEDS: HYDROCORTISONE ACETATE 25 MG SUPP RECTAL SCH ×2 (20:31→21:00)
[2018-01-02] MEDS: ATORVASTATIN 10 MG TAB PO SCH (20:31)
[2018-01-03] VITALS (10 sets, daily range): BP systolic 106–125; BP diastolic 57–77; PULSE 55–99; RESP 14–24; TEMP 97.7–98.7; O2SAT 92–99
[2018-01-03] MEDS: CHLORHEXIDINE GLUCONATE 2 % 1 PACK (2 CLOTHS) TOP SCH (03:23)
[2018-01-03] MEDS: SODIUM CHLOR 0.9% 1000 ML INJ 1,000 ML IV SCH ×2 (03:43→15:28)
[2018-01-03] MEDS: LACTULOSE SYRUP 20 GM/30 ML CUP PO SCH ×2 (08:07→08:15)
[2018-01-03] MEDS: levETIRAcetam 500 MG TAB PO SCH ×2 (08:07→21:00)
[2018-01-03] MEDS: QUEtiapine FUMARATE 300 MG TAB PO SCH ×2 (08:07→21:00)
[2018-01-03] MEDS: FAMOTIDINE 20 MG TAB PO SCH ×2 (08:07→21:00)
[2018-01-03] MEDS: DOCUSATE SODIUM 50 MG/SENNA 8.6 MG TAB PO SCH ×3 (08:07→21:00)
[2018-01-03] MEDS: POTASSIUM CHLORIDE 25 MEQ EFFERVESCENT TAB PO SCH (08:08)
[2018-01-03] MEDS: SODIUM CHLORIDE 0.9% FLUSH 10 ML FLUSH IV FLUSH SCH ×2 (08:08→21:00)
[2018-01-03] MEDS: HYDROCORTISONE ACETATE 25 MG SUPP RECTAL SCH ×2 (08:17→21:00)
--- NOTE | 2018-01-03 08:34 | PQ ---
Physician Query Response Document PATIENT: RAMON LOZANO : 1955 ADMIT DATE: 12/30/2017 7:55 PM DISCH DATE: RESPONDING PROVIDER #: isabela QUERY TEXT: CDS Clarification Sedative, hypnotic or anxiolytic dependence, present on admission in the setting of "lethargic and me dications could be contributing" treated with holding Klonopin and Seroquel Other explanation of clinical findings. Unable to determine (no explanation for clinical findings). The patient's Clinical Indicators include: The medical record reflects the following clinical findings, treatment, and risk factors. * Clinical Indicators: "Patient appears particularly dependent on her Klonopin and Seroquel" * Risk Factors: Acute on chronic intracranial subdural hematoma * Treatment: Medication held, neuro checks Please clarify and document your clinical opinion in the progress notes and discharge summary includi ng the definitive and/or presumptive diagnosis (suspected or probable), related to the above clinical findings. Please include clinical findings supporting your diagnosis. Thank you, Natalie Butler CDS/RN ext. [phone] Query created by: Natalie Butler on 01/02/2018 11:43 AM RESPONSE TEXT: Probable metabolic encephalopathy due to psychotropic and sedative medications. Electronically signed by: Jc Adams DO 01/03/2018 8:30 AM
[2018-01-03] MEDS: INSULIN ASPART SUPPLEMENTAL SCALE SQ SCH ×4 (08:49→21:00)
--- NOTE | 2018-01-03 12:35 | HHI.GIFU ---
Subjective Remarks Pt resting in bed. Denies diarrhea, bleeding. (Maeve Guzman) Objective Vitals I&O Vital Signs Date Time Temp Pulse Resp B/P (MAP) Pulse Ox O2 Delivery O2 Flow Rate FiO2 01/03/18 10:00 99 01/03/18 08:00 97.7 90 18 124/62 (82) 93 01/03/18 08:00 90 01/03/18 06:00 75 01/03/18 04:00 55 01/03/18 04:00 97.8 55 14 113/62 (79) 99 01/03/18 02:00 75 01/03/18 00:00 77 01/03/18 00:00 97.8 77 20 120/61 (80) 95 01/02/18 22:00 77 01/02/18 20:00 85 01/02/18 20:00 97.6 85 20 120/61 (80) 95 01/02/18 18:00 82 01/02/18 16:00 76 01/02/18 16:00 98.8 76 20 114/56 (75) 95 01/02/18 14:00 84 I/O 01/02/18 01/02/18 01/02/18 01/03/18 01/03/18 01/03/18 07:00 15:00 23:00 07:00 15:00 23:00 Intake Total 480 ml 300 ml 960 ml 680 ml Output Total 1325 ml 1600 ml 1450 ml Balance -845 ml 300 ml -640 ml -770 ml Intake Oral 480 ml 960 ml 480 ml IV Total 200 ml Other 300 ml Output Urine Total 1325 ml 1600 ml 1450 ml # Bowel Movements 0 2 0 Laboratory Date/Time Source Procedure Growth Status 12/30/17 17:40 Blood Peripheral Aerobic Blood Culture - Preliminary NO GROWTH IN 4 DAYS Resulted 12/30/17 17:40 Blood Peripheral Anaerobic Blood Culture - Preliminary NO GROWTH IN 4 DAYS Resulted 12/30/17 17:40 Nasal Washing Influenza Types A,B Antigen (BEATRIZ) - Final NEGATIVE FOR FLU A AND B ANTIGEN.... Complete Imaging Last Impressions Brain MRI 12/31/17 0000 Signed Impressions: Service Date/Time: Sunday, December 31, 2017 16:20 - CONCLUSION: Acute on chronic subdural hematoma right side more chronic than acute. Minimal effacement of the cortical sulci. Aakash Quintanilla MD FACR Abdomen CT 12/31/17 0000 Signed Impressions: Service Date/Time: Sunday, December 31, 2017 16:46 - CONCLUSION: 1. There is decreased density throughout the entire liver characteristic for diffuse fatty infiltration. 2. A few tiny nonobstructing bilateral renal stones are demonstrated. 3. Otherwise, unremarkable exam. Gene Owens MD Head CT 12/30/171728 Signed Impressions: Service Date/Time: Saturday, December 30, 2017 17:57 - CONCLUSION: 1. Acute on chronic right subdural hematoma. Vikash Staley Jr., MD Chest X-Ray 12/30/171728 Signed Impressions: Service Date/Time: Saturday, December 30, 2017 17:42 - CONCLUSION: No acute disease. Mitch Nix MD Physical Exam HEENT: Normocephalic; atraumatic CHEST: diminished CARDIAC: RRR ABDOMEN: Round, soft, nontender, bowel sounds active SKIN: Normal; no rash; no jaundice. CINDER BLOCK MAKER: Alert and oriented times three. (Maeve Guzman) Assessment and Plan Plan Assessment: - Rectal bleeding and diarrhea, states intermittent x 2 months Reports Imodium at home with some relief. Family history significant for bother with rectal cancer H/H currently stable CT abdomen W IV contrast (12/31) --> There is decreased density throughout the entire liver characteristic for diffuse fatty infiltration A few tiny nonobstructing bilateral renal stones are demonstrated. Otherwise, unremarkable exam. LFTs WNL. Ammonia elevated at 40 - Acid reflux/heartburn- Possible EGD 2 years ago, unsure of findings - Acute on chronic subdural bleed S/P multiple falls 01/03/18 s/p EGD and colonoscopy revealing gastritis, esophagitis, hiatal hernia ; poor prep, hemorrhoids, perianal nodule. pt denies diarrhea, bleeding at this time. HH WNL Plan await bx diet per attending Monitor labs await Stool studies hydrocortisone suppository PPI supportive care Pt has been seen and examined by myself and Dr. Mathur and this note is on her behalf (Maeve Guzman) Physician Comments seen, examined agree with above gi will sign off call us as needed if dc fu gi in 2 weeks (Sierra Mathur MD) Maeve Guzman January 03, 2018 12:35 Sierra Mathur MD January 03, 2018 15:56
[2018-01-03] MEDS ORDERED: clonazePAM 1 MG TAB PO PRN (14:00)
--- NOTE | 2018-01-03 14:23 | HHI.PR ---
Subjective Remarks Follow-up for acute on chronic subdural hematoma, possible chronic GI bleed. Patient is currently doing well. However, she requests that we start her clonazepam. No CP, SOB, fever, chills. Objective Vitals Vital Signs Date Time Temp Pulse Resp B/P (MAP) Pulse Ox O2 Delivery O2 Flow Rate FiO2 01/03/18 12:00 89 01/03/18 12:00 98.1 89 14 116/61 (79) 92 01/03/18 10:00 99 01/03/18 08:00 97.7 90 18 124/62 (82) 93 01/03/18 08:00 90 01/03/18 06:00 75 01/03/18 04:00 55 01/03/18 04:00 97.8 55 14 113/62 (79) 99 01/03/18 02:00 75 01/03/18 00:00 77 01/03/18 00:00 97.8 77 20 120/61 (80) 95 01/02/18 22:00 77 01/02/18 20:00 85 01/02/18 20:00 97.6 85 20 120/61 (80) 95 01/02/18 18:00 82 01/02/18 16:00 76 01/02/18 16:00 98.8 76 20 114/56 (75) 95 I/O 01/02/18 01/02/18 01/02/18 01/03/18 01/03/18 01/03/18 07:00 15:00 23:00 07:00 15:00 23:00 Intake Total 480 ml 300 ml 960 ml 680 ml Output Total 1325 ml 1600 ml 1450 ml Balance -845 ml 300 ml -640 ml -770 ml Intake Oral 480 ml 960 ml 480 ml IV Total 200 ml Other 300 ml Output Urine Total 1325 ml 1600 ml 1450 ml # Bowel Movements 0 2 0 Result Diagram: 12/31/17 0236 01/02/18 0523 Imaging Last Impressions Brain MRI 12/31/17 0000 Signed Impressions: Service Date/Time: Sunday, December 31, 2017 16:20 - CONCLUSION: Acute on chronic subdural hematoma right side more chronic than acute. Minimal effacement of the cortical sulci. Aakash Quintanilla MD FACR Abdomen CT 12/31/17 0000 Signed Impressions: Service Date/Time: Sunday, December 31, 2017 16:46 - CONCLUSION: 1. There is decreased density throughout the entire liver characteristic for diffuse fatty infiltration. 2. A few tiny nonobstructing bilateral renal stones are demonstrated. 3. Otherwise, unremarkable exam. Gene Owens MD Head CT 12/30/171728 Signed Impressions: Service Date/Time: Saturday, December 30, 2017 17:57 - CONCLUSION: 1. Acute on chronic right subdural hematoma. Vikash Staley Jr., MD Chest X-Ray 12/30/171728 Signed Impressions: Service Date/Time: Saturday, December 30, 2017 17:42 - CONCLUSION: No acute disease. Mitch Nix MD Objective Remarks GENERAL: Alert, oriented 3, NAD. SKIN: Warm and dry. HEAD: Normocephalic. EYES: No scleral icterus. No injection or drainage. NECK: Supple, trachea midline. No JVD or lymphadenopathy. CARDIOVASCULAR: Regular rate and rhythm without murmurs, gallops, or rubs. RESPIRATORY: Breath sounds equal bilaterally. No accessory muscle use. GASTROINTESTINAL: Abdomen soft, non-tender, nondistended. MUSCULOSKELETAL: No cyanosis, or edema. BACK: Nontender without obvious deformity. No CVA tenderness. Procedures EGD and colonoscopy 01/02/2018 1. Gastritis antrum-biopsy esophagitis distal esophagus-biopsy 2. Retroflexed views revealed a hiatal hernia 1. Semisolid stool throughout colon 2. Retroflexed views revealed internal hemorrhoids 3. Retroflexed views revealed medium internal hemorrhoids 4. Revealed external hemorrhoids 5. Perianal nodule A/P Problem List: (1) Acute on chronic intracranial subdural hematoma ICD Code: I62.01 - Nontraumatic acute subdural hemorrhage; I62.03 - Nontraumatic chronic subdural hemorrhage Assessment and Plan Ms. Lambert is a 52-year-old female with past medical history of bipolar disorder, diabetes, hyperlipidemia, insomnia, cocaine abuse who presented to [facility] emergency department with a 2-3 day history of lethargy. Workup at [facility] included CT brain that demonstrated 1.5 cm chronic subdural with some acute component, without midline shift. She is not on any anticoagulant or antiplatelet therapy. Coags and platelet counts are normal. MRI on 12/31/2017 shows acute on chronic subdural hematoma right side more chronic than acute. Neurosurgery has been following patient. Patient reported some bright red blood per rectum off and on for 2 months. GI was consulted and patient underwent EGD/colonoscopy on 01/02/2018. Acute on chronic subdural hematoma Generalized lethargy -Neurosurgery following. No surgical intervention recommended. NSR signed off. -Continue atorvastatin 10 mg nightly. -Continue clonazepam 1 mg every 8 hours as needed for agitation. -Continue Keppra 500 mg p.o. twice daily. Bipolar disorder Hx of Cocaine abuse Insomnia -Continue Seroquel 300 mg twice daily. -Will avoid trazodone for now. diabetes mellitus -Patient takes metformin at home. Will hold it for now. Continue sliding scale insulin. Transfer to the floor. We will plan on discharging patient to SNF on 01/04/2018. Full code. No pharmacological DVT prophylaxis due to subdural hematoma. Continue SCDs. Tye Adams DO January 03, 2018 14:23
[2018-01-03] MEDS: ATORVASTATIN 10 MG TAB PO SCH (21:00)
[2018-01-04] VITALS (8 sets, daily range): BP systolic 87–116; BP diastolic 50–65; PULSE 74–96; RESP 14–20; TEMP 97.8–98.8; O2SAT 93–99
[2018-01-04] MEDS: CHLORHEXIDINE GLUCONATE 2 % 1 PACK (2 CLOTHS) TOP SCH ×2 (04:00→22:39)
[2018-01-04] MEDS: LACTULOSE SYRUP 20 GM/30 ML CUP PO SCH ×2 (08:42→08:45)
[2018-01-04] MEDS: INSULIN ASPART SUPPLEMENTAL SCALE SQ SCH ×4 (08:43→21:00)
[2018-01-04] MEDS: POTASSIUM CHLORIDE 25 MEQ EFFERVESCENT TAB PO SCH (08:43)
[2018-01-04] MEDS: SODIUM CHLORIDE 0.9% FLUSH 10 ML FLUSH IV FLUSH SCH ×2 (08:43→21:00)
[2018-01-04] MEDS: QUEtiapine FUMARATE 300 MG TAB PO SCH ×2 (08:43→21:24)
[2018-01-04] MEDS: DOCUSATE SODIUM 50 MG/SENNA 8.6 MG TAB PO SCH ×2 (08:43→20:26)
[2018-01-04] MEDS: FAMOTIDINE 20 MG TAB PO SCH ×2 (08:43→21:24)
[2018-01-04] MEDS: levETIRAcetam 500 MG TAB PO SCH ×2 (08:43→21:24)
[2018-01-04] MEDS: HYDROCORTISONE ACETATE 25 MG SUPP RECTAL SCH ×2 (08:43→21:00)
--- NOTE | 2018-01-04 11:45 | PD.PSY.CON ---
Provisional Diagnosis Admission Date December 30, 2017 at 19:55 [place] I. Generalized anxiety disorder, bipolar disorder [place] II. Deferred [place] III. Diabetes mellitus, hypertension History of Present Illness Service Psychiatry Consult Requested By Medicine Reason for Consult Suicidal ideation Primary Care Physician DO CHAYA Keating The patient is 52-year-old woman, domiciled in [facility] with her daughter, never , supported by Social Security, with psychiatric history of bipolar disorder, anxiety,cocaine abuse, about 7 previous psychiatric hospitalizations, equal number of suicidal attempts by overdosing, last hospitalization was here at [facility] in September 2017, documentation review, she has outpatient psychiatric care with Dr. Brizuela, she is on trazodone 150 mg, Abilify 15 mg, Seroquel 300 mg, clonazepam 2 mg 3 times daily, Ambien 10 mg, medical history of diabetes, hypertension, hyperlipidemia, who presented to [facility] emergency department with a 2-3 day history of lethargy. Workup at [place] included CT brain that demonstrated 1.5 cm chronic subdural with some acute component, without midline shift. She is not on any anticoagulant or antiplatelet therapy. Coags and platelet counts are normal. MRI on 12/31/2017 shows acute on chronic subdural hematoma right side more chronic than acute. Neurosurgery has been following patient. Patient reported some bright red blood per rectum off and on for 2 months. GI was consulted and patient underwent EGD/colonoscopy on 01/02/2018. She was consulted to psychiatry to address psychotropic adjustment. On psychiatric evaluation today the patient is superficially cooperative, calm,. Once I presented to the patient she immediately requested to be restarted in her clonazepam. She reports that she has been quite anxious and depressed in the hospital, "#1 because I am not getting my medication, #2 because I do not like to be hospital ". She reports that she has been a stable and current psychotropic regimen prescribed by Dr. Childers. At this moment she reports difficulty sleeping at night, anxiety during the day, recurrent preoccupations about her health, lack of energy and appetite, but she denies hopelessness, denies helplessness, she denies suicidal enemas ideation at the moment. The patient is fully oriented 3 , no attention deficit, no fluctuation of consciousness. The patient denies the use of alcohol, she reports occasional use cocaine. Review of Systems Constitutional: DENIES: Diaphoretic episodes, Fatigue, Fever, Weight gain, Weight loss, Chills, Dizziness, Change in appetite, Night Sweats Endocrine: DENIES: Abnorml menstrual pattern, Heat/cold intolerance, Polydipsia , Polyuria, Polyphagia Eyes: DENIES: Blurred vision, Diplopia, Eye inflammation, Eye pain, Vision loss , Photosensitivity, Double Vision Ears, nose, mouth, throat: DENIES: Tinnitus, Hearing loss, Vertigo, Nasal discharge, Oral lesions, Throat pain, Hoarseness, Ear Pain, Running Nose, Epistaxis, Sinus Pain, Toothache, Odynophagia Respiratory: DENIES: Apneas, Cough, Snoring, Wheezing, Hemoptysis, Sputum production, Shortness of breath Cardiovascular: DENIES: Chest pain, Palpitations, Syncope, Dyspnea on Exertion , PND, Lower Extremity Edema, Orthopnea, Claudication Gastrointestinal: DENIES: Abdominal pain, Black stools, Bloody stools, Constipation, Diarrhea, Nausea, Vomiting, Difficulty Swallowing, Anorexia Genitourinary: DENIES: Abnormal vaginal bleeding, Dysmenorrhea, Dyspareunia, Sexual dysfunction, Urinary frequency, Urinary incontinence, Urgency, Hematuria , Dysuria, Nocturia, Vaginal discharge Musculoskeletal: DENIES: Joint pain, Muscle aches, Stiffness, Joint Swelling, Back pain, Neck pain Integumentary: DENIES: Abnormal pigmentation, Pruritus, Rash, Nail changes, Breast masses, Breast skin changes, Nipple discharge Hematologic/lymphatic: DENIES: Bruising, Lymphadenopathy Immunologic/allergic: DENIES: Eczema, Urticaria Neurologic: DENIES: Abnormal gait, Headache, Localized weakness, Paresthesias, Seizures, Speech Problems, Tremor, Poor Balance Psychiatric: DENIES: Anxiety, Confusion, Mood changes, Depression, Hallucinations, Agitation, Suicidal Ideation, Homicidal Ideation, Delusions Past Family Social History Coded Allergies: No Known Allergies (Verified Allergy, Unknown, 12/30/17) Uncoded Allergies: NKA (Allergy, Unknown, 04/30/03) NKDA (Allergy, Unknown, 04/30/03) Reported Medications Clonazepam (Clonazepam) 2 Mg Tab, 2 MG PO TID, #90 TAB 0 Refills 12/30/17 Aripiprazole (Aripiprazole) 15 Mg Tab, 15 MG PO DAILY, #30 TAB 0 Refills 12/30/17 Levetiracetam (Levetiracetam) 500 Mg Tab, 500 MG PO BID for Control Seizures, # 60 TAB 0 Refills 12/30/17 Metformin (Metformin) 1,000 Mg Tab, 1000 MG PO BIDPC for Blood Sugar Management , #60 TAB 0 Refills 12/30/17 Trazodone (Trazodone) 150 Mg Tablet, 150 MG PO BID for Control Depression, #30 TAB 0 Refills 12/30/17 [Setzima] No Conflict Check, 120 MG PO DAILY 12/30/17 Atorvastatin (Atorvastatin) 10 Mg Tab, 10 MG PO HS for Cholesterol Management, # 30 TAB 0 Refills 12/30/17 Zolpidem (Ambien) 10 Mg Tab, 10 MG PO HS Y for INSOMNIA, TAB 0 Refills 12/30/17 Meclizine (Meclizine) 12.5 Mg Tab, 12.5 MG PO BID Y for VERTIGO, TAB 0 Refills 12/30/17 Current Medications Medications (Trade) Dose Ordered Sig/Alfredo Route Start Time Stop Time Status Last Admin (D50w (Vial) Inj) 50 ml UNSCH PRN IV PUSH 12/30/17 19:45 (Glucagon Inj) 1 mg UNSCH PRN OTHER 12/30/17 19:45 (NovoLOG SUPPLEMENTAL SCALE) 1 ACHS SLIDING SCALE SQ 12/30/17 21:00 01/04/18 08:43 (Reglan Inj) 5 mg Q6H PRN IV PUSH 12/30/17 19:45 (Tylenol) 650 mg Q6H PRN PO 12/30/17 19:45 01/02/18 10:09 ([place] 5-325 Mg) 1 tab Q4H PRN PO 12/30/17 19:45 (Morphine Inj) 2 mg Q3H PRN IV PUSH 12/30/17 20:30 (Sandra-Colace) 1 tab BID PO 12/30/17 21:00 01/04/18 08:43 (Milk Of Magnesia Liq) 30 ml Q12H PRN PO 12/30/17 19:45 (Senokot) 17.2 mg Q12H PRN PO 12/30/17 19:45 (Dulcolax Supp) 10 mg DAILY PRN RECTAL 12/30/17 19:45 (Lactulose Liq) 30 ml DAILY PRN PO 12/30/17 19:45 (Abilify) 15 mg DAILY PO 12/31/17 09:00 Future Hold (Lipitor) 10 mg HS PO 12/30/17 21:00 01/03/18 21:00 (KlonoPIN) 2 mg TID PO 12/31/17 09:00 Future Hold 01/04/18 01:43 (Keppra) 500 mg BID PO 12/30/17 21:00 01/04/18 08:43 Potassium Chloride 100 ml @ 50 mls/hr Q2H PRN IV 12/30/17 20:00 Potassium Chloride 100 ml @ 50 mls/hr Q2H PRN IV 12/30/17 20:00 (K-Lyte Cl Eff) 50 meq UNSCH PRN PO 12/30/17 20:00 Potassium Chloride 100 ml @ 25 mls/hr UNSCH PRN IV 12/30/17 20:00 Potassium Chloride 100 ml @ 50 mls/hr Q2H PRN IV 12/30/17 20:00 01/01/18 06:19 Magnesium Sulfate 4 gm/Sodium Chloride 100 ml @ 50 mls/hr UNSCH PRN IV 12/30/17 20:00 (Mag-Ox) 800 mg UNSCH PRN PO 12/30/17 20:00 Magnesium Sulfate 2 gm/Sodium Chloride 100 ml @ 50 mls/hr UNSCH PRN IV 12/30/17 20:00 (K-Phos) 2,000 mg Q4H PRN PO 12/30/17 20:00 Sodium Phosphate 30 mmol/Sodium Chloride 250 ml @ 42 mls/hr UNSCH PRN IV 12/30/17 20:00 (K-Phos) 2,000 mg UNSCH PRN PO/TUBE 12/30/17 20:00 Potassium Phosphate 30 mmol/ Sodium Chloride 260 ml @ 42 mls/hr UNSCH PRN IV 12/30/17 20:00 (NS Flush) 2 ml UNSCH PRN IV FLUSH 12/30/17 20:00 (NS Flush) 2 ml BID IV FLUSH 12/30/17 21:00 01/04/18 08:43 (Albuterol Neb) 2.5 mg Q2HR NEB PRN INH 12/30/17 20:00 ([facility] Nursing Information) 1 [id number] XX 12/30/17 20:00 12/30/17 01:00 (Chlorhexidine 2% Cloth) 3 pack Taper DAILY@04 TOP 12/31/17 04:00 12/27/18 03:59 12/31/17 01:27 (Chlorhexidine 2% Cloth) 3 pack UNSCH PRN TOP 12/30/17 20:00 (Pepcid) 20 mg BID PO 12/30/17 21:00 01/04/18 08:43 (Lactulose Liq) 30 ml DAILY PO 12/31/17 09:00 01/01/18 09:21 (SEROquel) 300 mg BID PO 12/31/17 21:00 01/04/18 08:43 (K-Lyte Cl Eff) 25 meq DAILY PO 01/01/18 11:45 01/04/18 08:43 Lactated Ringer's 1,000 ml @ 30 mls/hr Q24H PRN IV 01/02/18 03:15 01/05/18 03:14 Sodium Chloride 500 ml @ 30 mls/hr [id number] PRN IV 01/02/18 03:15 01/05/18 03:14 (Betadine 5% Antisepsis Kit) 1 applic PLATE FINISHER PRN EACH NARE 01/02/18 03:15 01/05/18 03:14 (Chlorhexidine 2% Cloth) 3 pack PLATE FINISHER PRN TOPICAL 01/02/18 03:15 01/05/18 03:14 (Hemorrhoidal Hc Supp) 25 mg BID RECTAL 01/02/18 21:00 01/04/18 08:43 (KlonoPIN) 1 mg Q8HR PRN PO 01/03/18 14:00 01/03/18 13:49 Family Psych History No family psychiatric history Social History Patient was born and raised in [place], she lives in [facility] with her daughter, she has never been , she has a daughter, unemployed, supported by Social Security Patient's Strengths (min. 2) Outpatient psychiatry Physical Exam Patient seems to be kind of hypoactive, but no tremors, no EPS, Vital Signs Vital Signs Date Time Temp Pulse Resp B/P (MAP) Pulse Ox O2 Delivery O2 Flow Rate FiO2 01/04/18 04:00 98.8 96 20 90/56 (67) 99 01/02/18 11:45 Room Air 5/13/18 19:00 2.00 I/O 01/04/18 01/04/18 01/05/18 08:00 16:00 00:00 Intake Total 500 ml Balance 500 ml Lab Results Date/Time Source Procedure Growth Status 12/30/17 17:40 Blood Peripheral Aerobic Blood Culture - Final NO GROWTH IN 5 DAYS Complete 12/30/17 17:40 Blood Peripheral Anaerobic Blood Culture - Final NO GROWTH IN 5 DAYS Complete 12/30/17 17:40 Nasal Washing Influenza Types A,B Antigen (BEATRIZ) - Final NEGATIVE FOR FLU A AND B ANTIGEN.... Complete Mental Status Examination Appearance: Appropriate Consciousness: Alert Orientation: x4 Motor Activity: Normal gait Speech: Unremarkable Language: Adequate Fund of Knowledge: Adequate Attention and Concentration: Adequate Memory: Unremarkable Mood: Sad Affect: Appropriate Thought Process & Associations: Intact Thought Content: Appropriate Hallucination Type: None Delusion Type: None Suicidal Ideation: No Suicidal Plan: No Suicidal Intention: No Homicidal Ideation: No Homicidal Plan: No Homicidal Intention: No Insight: Adequate Judgment: Adequate Assessment & Plan Problem List: (1) Anxiety ICD Codes: F41.9 - Anxiety disorder, unspecified Status: Chronic Assessment & Plan: On psychiatric evaluation today the patient reports symptoms of increased anxiety and depression in the context of current hospitalization and not being in her psychotropics, especially in clonazepam. The patient denies suicidal enemas ideation, she denies visual and auditory hallucinations. She is logical, coherent, relevant and goal-directed. No paranoia, no loosening of associations, no delirium, no delusions present. Patient has history of bipolar disorder, anxiety, cocaine use disorder, multiple psychiatric hospitalizations, also suicidal attempts, her last hospitalization was here at [facility] in March 2018, documentation was reviewed. Patient is a multiple psychotropics prescribed by Dr. Childers, some of them do not have a clear indication at this moment and they can definitely be harmful given the current medical picture of the patient. I will restart the Seroquel 300 mg, which is for mood stabilization and also help with insomnia. Restart clonazepam 1 mg twice daily. If patient complained of insomnia, either Ambien 10 mg of trazodone 50 mg can be ordered as needed. Brief supportive psychotherapy, motivational psych education provided. I will follow-up. Assessment & Plan Estimated LOS: Wilian Galvan MD January 04, 2018 11:45
[2018-01-04] MEDS: clonazePAM 1 MG TAB PO SCH ×2 (12:19→21:24)
--- NOTE | 2018-01-04 13:25 | HHI.PR ---
Subjective Remarks Follow-up for acute on chronic subdural hematoma, possible chronic GI bleed. Patient is doing well. Requests her Trazodone for sleep. No acute concerns. She is able to go to the bathroom with walker. Objective Vitals Vital Signs Date Time Temp Pulse Resp B/P (MAP) Pulse Ox O2 Delivery O2 Flow Rate FiO2 01/04/18 12:00 90 01/04/18 12:00 97.8 90 19 95/50 (65) 97 01/04/18 10:00 93 01/04/18 08:00 97.8 88 14 87/52 (64) 96 01/04/18 08:00 88 01/04/18 04:00 98.8 96 20 90/56 (67) 99 01/04/18 04:00 96 01/04/18 00:00 87 01/04/18 00:00 98.8 78 16 87/53 (64) 94 01/03/18 20:00 82 01/03/18 20:00 98.7 82 24 125/77 (93) 94 01/03/18 16:00 98.1 81 15 106/57 (73) 94 01/03/18 16:00 81 01/03/18 14:00 89 I/O 01/03/18 01/03/18 01/03/18 01/04/18 01/04/18 01/04/18 07:00 15:00 23:00 07:00 15:00 23:00 Intake Total 680 ml 1200 ml 500 ml Output Total 1450 ml 650 ml Balance -770 ml 550 ml 500 ml Intake Oral 480 ml 1200 ml 500 ml IV Total 200 ml Output Urine Total 1450 ml 650 ml # Voids 5 2 # Bowel Movements 0 2 0 Result Diagram: 12/31/17 0236 01/02/18 0523 Objective Remarks GENERAL: Alert, oriented 3, NAD. SKIN: Warm and dry. HEAD: Normocephalic. EYES: No scleral icterus. No injection or drainage. NECK: Supple, trachea midline. No JVD or lymphadenopathy. CARDIOVASCULAR: Regular rate and rhythm without murmurs, gallops, or rubs. RESPIRATORY: Breath sounds equal bilaterally. No accessory muscle use. GASTROINTESTINAL: Abdomen soft, non-tender, nondistended. MUSCULOSKELETAL: No cyanosis, or edema. BACK: Nontender without obvious deformity. No CVA tenderness. Procedures EGD and colonoscopy 01/02/2018 1. Gastritis antrum-biopsy esophagitis distal esophagus-biopsy 2. Retroflexed views revealed a hiatal hernia 1. Semisolid stool throughout colon 2. Retroflexed views revealed internal hemorrhoids 3. Retroflexed views revealed medium internal hemorrhoids 4. Revealed external hemorrhoids 5. Perianal nodule A/P Problem List: (1) Acute on chronic intracranial subdural hematoma ICD Code: I62.01 - Nontraumatic acute subdural hemorrhage; I62.03 - Nontraumatic chronic subdural hemorrhage Assessment and Plan Ms. Lambert is a 52-year-old female with past medical history of bipolar disorder, diabetes, hyperlipidemia, insomnia, cocaine abuse who presented to [facility] emergency department with a 2-3 day history of lethargy. Workup at [place] included CT brain that demonstrated 1.5 cm chronic subdural with some acute component, without midline shift. She is not on any anticoagulant or antiplatelet therapy. Coags and platelet counts are normal. MRI on 12/31/2017 shows acute on chronic subdural hematoma right side more chronic than acute. Neurosurgery has been following patient. Patient reported some bright red blood per rectum off and on for 2 months. GI was consulted and patient underwent EGD/colonoscopy on 01/02/2018. Acute on chronic subdural hematoma Generalized lethargy -Neurosurgery following. No surgical intervention recommended. NSR signed off. -Continue atorvastatin 10 mg nightly. -Continue clonazepam 1 mg every 8 hours as needed for agitation. -Continue Keppra 500 mg p.o. twice daily. Bipolar disorder Hx of Cocaine abuse Insomnia -Continue Seroquel 300 mg twice daily. -Will start trazodone 50mg QHS diabetes mellitus -Patient takes metformin at home. Will hold it for now. Continue sliding scale insulin. Add Levemir 7 units QHS. Diabetic diet. Transfer to the floor. Possible d/c to SNF in a day or so. Full code. No pharmacological DVT prophylaxis due to subdural hematoma. Continue SCDs. Tye Adams DO January 04, 2018 13:25
[2018-01-04] MEDS ORDERED: traZODone HCL 50 MG TAB PO PRN (21:00)
[2018-01-04] MEDS ORDERED: INSULIN DETEMIR 100 UNITS/ML VIAL SQ SCH (21:00)
[2018-01-04] MEDS: ATORVASTATIN 10 MG TAB PO SCH (21:24)
[2018-01-04] MEDS: ACETAMINOPHEN/HYDROcodone 325 MG/5 MG TAB PO PRN (21:24)
[2018-01-05 00:01] VITALS: BP 91/58; PULSE 83; RESP 18; TEMP 97.2; O2SAT 93
[2018-01-05 04:00] VITALS: BP 94/53; PULSE 75; RESP 18; TEMP 97.6; O2SAT 95
[2018-01-05] MEDS: clonazePAM 1 MG TAB PO SCH ×3 (06:01→20:35)
[2018-01-05] MEDS: ACETAMINOPHEN/HYDROcodone 325 MG/5 MG TAB PO PRN ×3 (06:35→17:17)
[2018-01-05 07:37] VITALS: BP 93/53; PULSE 78; RESP 19; TEMP 97.6; O2SAT 94
[2018-01-05] MEDS: HYDROCORTISONE ACETATE 25 MG SUPP RECTAL SCH ×2 (09:00→20:36)
[2018-01-05] MEDS: INSULIN ASPART SUPPLEMENTAL SCALE SQ SCH ×4 (09:20→20:36)
[2018-01-05] MEDS: LACTULOSE SYRUP 20 GM/30 ML CUP PO SCH (09:21)
[2018-01-05] MEDS: levETIRAcetam 500 MG TAB PO SCH ×2 (09:21→20:35)
[2018-01-05] MEDS: POTASSIUM CHLORIDE 25 MEQ EFFERVESCENT TAB PO SCH (09:21)
[2018-01-05] MEDS: FAMOTIDINE 20 MG TAB PO SCH ×2 (09:21→20:35)
[2018-01-05] MEDS: SODIUM CHLORIDE 0.9% FLUSH 10 ML FLUSH IV FLUSH SCH ×2 (09:21→20:36)
[2018-01-05] MEDS: DOCUSATE SODIUM 50 MG/SENNA 8.6 MG TAB PO SCH ×2 (09:21→20:35)
[2018-01-05] MEDS: QUEtiapine FUMARATE 300 MG TAB PO SCH ×2 (10:37→20:35)
--- NOTE | 2018-01-05 11:04 | HHI.PR ---
Subjective Remarks Patient resting in bed awaken easily to voice Patient A&O offers no complaints at this time Objective Vitals Vital Signs Date Time Temp Pulse Resp B/P (MAP) Pulse Ox O2 Delivery O2 Flow Rate FiO2 01/05/18 07:37 97.6 78 19 93/53 (66) 94 01/05/18 07:35 18 01/05/18 04:00 97.6 75 18 94/53 (67) 95 01/05/18 00:01 97.2 83 18 91/58 (69) 93 01/04/18 20:00 74 01/04/18 20:00 98.2 74 16 99/65 (76) 94 01/04/18 16:00 98.0 80 16 116/63 (80) 93 01/04/18 16:00 80 01/04/18 14:00 91 01/04/18 12:00 90 01/04/18 12:00 97.8 90 19 95/50 (65) 97 Result Diagram: 01/02/18 0523 Imaging Last Impressions Brain MRI 12/31/17 0000 Signed Impressions: Service Date/Time: Sunday, December 31, 2017 16:20 - CONCLUSION: Acute on chronic subdural hematoma right side more chronic than acute. Minimal effacement of the cortical sulci. Aakash Quintanilla MD FACR Abdomen CT 12/31/17 0000 Signed Impressions: Service Date/Time: Sunday, December 31, 2017 16:46 - CONCLUSION: 1. There is decreased density throughout the entire liver characteristic for diffuse fatty infiltration. 2. A few tiny nonobstructing bilateral renal stones are demonstrated. 3. Otherwise, unremarkable exam. Gene Owens MD Head CT 12/30/171728 Signed Impressions: Service Date/Time: Saturday, December 30, 2017 17:57 - CONCLUSION: 1. Acute on chronic right subdural hematoma. Vikash Staley Jr., MD Chest X-Ray 12/30/171728 Signed Impressions: Service Date/Time: Saturday, December 30, 2017 17:42 - CONCLUSION: No acute disease. Mitch Nix MD Objective Remarks GENERAL: This is a well-nourished, well-developed patient, in no apparent distress. CARDIOVASCULAR: Regular rate and rhythm RESPIRATORY: Clear to auscultation. Breath sounds equal bilaterally. GASTROINTESTINAL: Abdomen soft, non-tender, nondistended. Normal active bowel sounds MUSCULOSKELETAL: Extremities without clubbing, cyanosis, or edema. NEURO: No focal deficits. Moves all ext x4 Procedures EGD and colonoscopy 01/02/2018 1. Gastritis antrum-biopsy esophagitis distal esophagus-biopsy 2. Retroflexed views revealed a hiatal hernia 1. Semisolid stool throughout colon 2. Retroflexed views revealed internal hemorrhoids 3. Retroflexed views revealed medium internal hemorrhoids 4. Revealed external hemorrhoids 5. Perianal nodule A/P Problem List: (1) Acute on chronic intracranial subdural hematoma ICD Codes: I62.01 - Nontraumatic acute subdural hemorrhage; I62.03 - Nontraumatic chronic subdural hemorrhage Assessment and Plan Ms. Lambert is a 52-year-old female with past medical history of bipolar disorder, diabetes, hyperlipidemia, insomnia, cocaine abuse who presented to [facility] emergency department with a 2-3 day history of lethargy. Workup at [place] included CT brain that demonstrated 1.5 cm chronic subdural with some acute component, without midline shift. She is not on any anticoagulant or antiplatelet therapy. Coags and platelet counts are normal. MRI on 12/31/2017 shows acute on chronic subdural hematoma right side more chronic than acute. Neurosurgery has been following patient. Patient reported some bright red blood per rectum off and on for 2 months. GI was consulted and patient underwent EGD/colonoscopy on 01/02/2018. Acute on chronic subdural hematoma Generalized lethargy -Neurosurgery following. No surgical intervention recommended. NSR signed off. -Continue atorvastatin 10 mg nightly. -Continue clonazepam 1 mg every 8 hours as needed for agitation. -Continue Keppra 500 mg p.o. twice daily. Bipolar disorder Hx of Cocaine abuse Insomnia -Continue Seroquel 300 mg twice daily. -trazodone 50mg QHS as needed for insomnia Hypotension -Patient's BP has been running low -Per patient this is normal for her -Patient asymptomatic - check CBC diabetes mellitus -Patient takes metformin at home, will resume. -Continue sliding scale insulin. Add Levemir 7 units QHS. Diabetic diet. Possible d/c to SNF in a 1-2 days Full code. No pharmacological DVT prophylaxis due to subdural hematoma. Continue SCDs. Supervising physician Asha Kwong January 05, 2018 11:04
[2018-01-05 11:25] LABS: AUTOMATED NEUTROPHIL # 2.7 TH/MM3 (1.8-7.7); BASOPHIL % 0.7 % (0.0-2.0); EOSINOPHIL # 0.2 TH/MM3 (0-0.4); EOSINOPHIL % 2.6 % (0.0-4.0); HEMATOCRIT 46.1 % (35.0-46.0); HEMOGLOBIN 15.7 GM/DL (11.6-15.3); LYMPH % 48.4 % (9.0-44.0); LYMPHOCYTE # 3.3 TH/MM3 (1.0-4.8); MEAN CELL VOLUME 90.2 FL (80.0-100.0); MEAN CORPUSCULAR HEMOGLOBIN 30.8 PG (27.0-34.0); MEAN CORPUSCULAR HGB CONC 34.1 % (32.0-36.0); MEAN PLATELET VOLUME 8.2 FL (7.0-11.0); MONO % 7.8 % (0.0-8.0); MONOCYTE # 0.5 TH/MM3 (0-0.9); NEUT % 40.5 % (16.0-70.0); PLATELET COUNT 242 TH/MM3 (150-450); RED BLOOD COUNT 5.11 MIL/MM3 (4.00-5.30); RED CELL DISTRIBUTION WIDTH 12.7 % (11.6-17.2); WHITE BLOOD COUNT 6.7 TH/MM3 (4.0-11.0)
[2018-01-05 11:42] VITALS: BP 107/56; PULSE 85; RESP 19; TEMP 97.8; O2SAT 94
[2018-01-05 12:01] LABS: BICARBONATE 28.3 MEQ/L (21.0-32.0); CALCIUM 9.4 MG/DL (8.5-10.1); CREATININE 0.74 MG/DL (0.50-1.00)
[2018-01-05 15:37] VITALS: BP 100/59; PULSE 81; RESP 19; TEMP 98; O2SAT 95
[2018-01-05] MEDS: metFORMIN HCL 500 MG TAB PO SCH (17:15)
[2018-01-05 20:00] VITALS: BP 102/51; PULSE 74; RESP 18; TEMP 98; O2SAT 95
[2018-01-05] MEDS: ATORVASTATIN 10 MG TAB PO SCH (20:35)
[2018-01-05] MEDS: CHLORHEXIDINE GLUCONATE 2 % 1 PACK (2 CLOTHS) TOP SCH (20:36)
[2018-01-06] VITALS: BP 100/54; PULSE 82; RESP 18; TEMP 97.3; O2SAT 92
[2018-01-06 04:00] VITALS: BP 95/52; PULSE 82; RESP 18; TEMP 98.1; O2SAT 92
[2018-01-06] MEDS: clonazePAM 1 MG TAB PO SCH ×2 (05:33→13:54)
[2018-01-06 08:13] VITALS: BP 124/59; PULSE 79; RESP 16; TEMP 98; O2SAT 94
[2018-01-06] MEDS: FAMOTIDINE 20 MG TAB PO SCH (09:35)
[2018-01-06] MEDS: metFORMIN HCL 500 MG TAB PO SCH (09:35)
[2018-01-06] MEDS: DOCUSATE SODIUM 50 MG/SENNA 8.6 MG TAB PO SCH (09:35)
[2018-01-06] MEDS: levETIRAcetam 500 MG TAB PO SCH (09:35)
[2018-01-06] MEDS: QUEtiapine FUMARATE 300 MG TAB PO SCH (09:35)
[2018-01-06] MEDS: INSULIN ASPART SUPPLEMENTAL SCALE SQ SCH ×2 (09:36→11:42)
[2018-01-06] MEDS: SODIUM CHLORIDE 0.9% FLUSH 10 ML FLUSH IV FLUSH SCH (09:36)
[2018-01-06] MEDS: POTASSIUM CHLORIDE 25 MEQ EFFERVESCENT TAB PO SCH (09:37)
[2018-01-06] MEDS: LACTULOSE SYRUP 20 GM/30 ML CUP PO SCH (09:37)
[2018-01-06] MEDS: HYDROCORTISONE ACETATE 25 MG SUPP RECTAL SCH (09:37)
[2018-01-06] MEDS: ACETAMINOPHEN/HYDROcodone 325 MG/5 MG TAB PO PRN ×2 (10:00→13:54)
[2018-01-06 11:53] VITALS: BP 103/53; PULSE 88; RESP 18; TEMP 97.5; O2SAT 93
[2018-01-06] MEDS ORDERED: CLON1 PO (12:18)
[2018-01-06] MEDS ORDERED: TRAZ50TA12 PO (12:18)
[2018-01-06] MEDS ORDERED: QUET1TAB10 PO (12:18)
[2018-01-06] MEDS ORDERED: HYDR-3516 PO (12:23)
[2018-01-06 16:00] VITALS: BP 120/76; PULSE 110; RESP 19; TEMP 97.4; O2SAT 96
--- NOTE | 2018-01-06 21:13 | HHI.DS ---
Discharge Summary Admission Date December 30, 2017 at 19:55 Discharge Date: January 06, 2018 Admitting Diagnosis AMS, ACUTE ON CHRONIC SUBDURAL HEMATOMA,HYPOKALEMIA (1) Acute on chronic intracranial subdural hematoma ICD Code: I62.01 - Nontraumatic acute subdural hemorrhage; I62.03 - Nontraumatic chronic subdural hemorrhage Diagnosis: Principal Procedures EGD and colonoscopy 01/02/2018 1. Gastritis antrum-biopsy esophagitis distal esophagus-biopsy 2. Retroflexed views revealed a hiatal hernia 1. Semisolid stool throughout colon 2. Retroflexed views revealed internal hemorrhoids 3. Retroflexed views revealed medium internal hemorrhoids 4. Revealed external hemorrhoids 5. Perianal nodule Brief History - From Admission History obtained from discussion with Dr. Mckeon and review of EMR. Patient is not able to provide significant history due to lethargy. Attempted to contact patient's daughter at [phone] and there was no answer. 52-year-old female with past medical history of bipolar disorder, diabetes, hyperlipidemia, insomnia, cocaine abuse who presented to [facility] emergency department with a 2-3 day history of lethargy. She has recently been admitted ( last 2-3 months) to [facility] for falls with subdural hematoma and had reportedly refused rehab. Workup at [place] included CT brain that demonstrated 1.5 cm chronic subdural with some acute component, without midline shift. She is not on any anticoagulant or antiplatelet therapy. Coags and platelet counts are normal. Urine drug screen and alcohol level are negative. She is also on trazodone, klonopin, and ambien prescribed by her psychiatrist and her daughter had expressed concern to Dr. Mckeon that she was overmedicated. She has had little to eat over the last 3 days. CBC/BMP: 01/05/18 1056 01/05/18 1056 Significant Findings Laboratory Tests Test 01/05/18 10:56 Hemoglobin 15.7 GM/DL (11.6-15.3) Hematocrit 46.1 % (35.0-46.0) Lymphocytes (%) (Auto) 48.4 % (9.0-44.0) Random Glucose 180 MG/DL (74-106) Estimat Glomerular Filtration Rate 80 ML/MIN (>89) Imaging Last Impressions Brain MRI 12/31/17 0000 Signed Impressions: Service Date/Time: Sunday, December 31, 2017 16:20 - CONCLUSION: Acute on chronic subdural hematoma right side more chronic than acute. Minimal effacement of the cortical sulci. Aakash Quintanilla MD FACR Abdomen CT 12/31/17 0000 Signed Impressions: Service Date/Time: Sunday, December 31, 2017 16:46 - CONCLUSION: 1. There is decreased density throughout the entire liver characteristic for diffuse fatty infiltration. 2. A few tiny nonobstructing bilateral renal stones are demonstrated. 3. Otherwise, unremarkable exam. Gene Owens MD Head CT 12/30/171728 Signed Impressions: Service Date/Time: Saturday, December 30, 2017 17:57 - CONCLUSION: 1. Acute on chronic right subdural hematoma. Vikash Staley Jr., MD Chest X-Ray 12/30/171728 Signed Impressions: Service Date/Time: Saturday, December 30, 2017 17:42 - CONCLUSION: No acute disease. Mitch Nix MD PE at Discharge GENERAL: Alert, oriented 3, NAD. SKIN: Warm and dry. HEAD: Normocephalic. EYES: No scleral icterus. No injection or drainage. NECK: Supple, trachea midline. No JVD or lymphadenopathy. CARDIOVASCULAR: Regular rate and rhythm without murmurs, gallops, or rubs. RESPIRATORY: Breath sounds equal bilaterally. No accessory muscle use. GASTROINTESTINAL: Abdomen soft, non-tender, nondistended. MUSCULOSKELETAL: No cyanosis, or edema. BACK: Nontender without obvious deformity. No CVA tenderness. Pt update on day of discharge Patient is doing well. No acute concerns. No fever, chills. Hospital Course Ms. Lambert is a 52-year-old female with past medical history of bipolar disorder, diabetes, hyperlipidemia, insomnia, cocaine abuse who presented to [facility] emergency department with a 2-3 day history of lethargy. Workup at [place] included CT brain that demonstrated 1.5 cm chronic subdural with some acute component, without midline shift. She is not on any anticoagulant or antiplatelet therapy. Coags and platelet counts are normal. MRI on 12/31/2017 shows acute on chronic subdural hematoma right side more chronic than acute. Neurosurgery has been following patient. Patient reported some bright red blood per rectum off and on for 2 months. GI was consulted and patient underwent EGD/colonoscopy on 01/02/2018. Acute on chronic subdural hematoma Generalized lethargy -Neurosurgery following. No surgical intervention recommended. NSR signed off. -Continue atorvastatin 10 mg nightly. -Continue clonazepam 1 mg every 8 hours as needed for agitation. -Continue Keppra 500 mg p.o. twice daily. Bipolar disorder Hx of Cocaine abuse Insomnia -Continue Seroquel 300 mg twice daily. -trazodone 50mg QHS as needed for insomnia diabetes mellitus -Patient takes metformin at home, will resume. -Continue sliding scale insulin. Pt Condition on Discharge: Good Discharge Disposition: Discharge to SNF Discharge Time: <= 30 minutes Discharge Instructions DIET: Follow Instructions for: Diabetic Diet Activities you can perform: Regular-No Restrictions Follow up Referrals: PCP Follow-up - 1 Week SNF/[facility]/ New Medications: Clonazepam (Klonopin) 1 Mg Tab 1 MG PO Q8HR for Anxiety and/or Insomnia, #12 TAB Hydrocodone/Acetaminophen (Hydrocodone-Acetamin 5-325 mg) 5 Mg-325 Mg Tablet 1 TAB PO Q6HR PRN for PAIN SCALE 5 TO 10, #12 TAB Quetiapine (Quetiapine) 300 Mg Tab 300 MG PO BID for Agitation, #60 TAB Trazodone (Trazodone) 50 Mg Tab 50 MG PO HS PRN for INSOMNIA, #7 TAB Continued Medications: Atorvastatin (Atorvastatin) 10 Mg Tab 10 MG PO HS for Cholesterol Management, #30 TAB 0 Refills Levetiracetam (Levetiracetam) 500 Mg Tab 500 MG PO BID for Control Seizures, #60 TAB 0 Refills Meclizine (Meclizine) 12.5 Mg Tab 12.5 MG PO BID PRN for VERTIGO, TAB 0 Refills Metformin (Metformin) 1,000 Mg Tab 1000 MG PO BIDPC for Blood Sugar Management, #60 TAB 0 Refills [Setzima] () 120 MG PO DAILY Discontinued Medications: Aripiprazole (Aripiprazole) 15 Mg Tab 15 MG PO DAILY, #30 TAB 0 Refills Clonazepam (Clonazepam) 2 Mg Tab 2 MG PO TID, #90 TAB 0 Refills Trazodone (Trazodone) 150 Mg Tablet 150 MG PO BID for Control Depression, #30 TAB 0 Refills Zolpidem (Ambien) 10 Mg Tab 10 MG PO HS PRN for INSOMNIA, TAB 0 Refills Tye Adams DO January 06, 2018 21:13
== END 2018-01-06 16:37 | DRG 82 ==
LOC: PHED 17:18 → UNDOADMIN 19:55 → PHEDA 19:55 → N03A 12-31 00:37 → N06A 01-04 22:37
PROVIDERS: ADMIT Hospitalist; ATTEND Hospitalist
PROC: 0DJD8ZZ Inspection of Lower Intestinal Tract, Via Natural or Artificial Opening Endoscopic (ICD-10-PCS; 2018-01-02)
PROC: 0DB38ZX Excision of Lower Esophagus, Via Natural or Artificial Opening Endoscopic, Diagnostic (ICD-10-PCS; principal; 2018-01-02 11:02)
PROC: 0DB78ZX Excision of Stomach, Pylorus, Via Natural or Artificial Opening Endoscopic, Diagnostic (ICD-10-PCS; 2018-01-02 11:02)
DX: S06.5X9A Traumatic subdural hemorrhage with loss of consciousness of unspecified duration, initial encounter (principal); G93.41 Metabolic encephalopathy; R45.851 Suicidal ideations; I95.2 Hypotension due to drugs; K62.5 Hemorrhage of anus and rectum; E87.6 Hypokalemia; K76.0 Fatty (change of) liver, not elsewhere classified; R81 Glycosuria; W19.XXXA Unspecified fall, initial encounter; E78.5 Hyperlipidemia, unspecified; E11.9 Type 2 diabetes mellitus without complications; R29.6 Repeated falls; E66.9 Obesity, unspecified; R47.81 Slurred speech; K29.70 Gastritis, unspecified, without bleeding; R19.7 Diarrhea, unspecified; K44.9 Diaphragmatic hernia without obstruction or gangrene; K21.0 Gastro-esophageal reflux disease with esophagitis; R00.0 Tachycardia, unspecified; I10 Essential (primary) hypertension; K64.8 Other hemorrhoids; K64.4 Residual hemorrhoidal skin tags; G47.00 Insomnia, unspecified; T42.4X5A Adverse effect of benzodiazepines, initial encounter; T42.6X5A Adverse effect of other antiepileptic and sedative-hypnotic drugs, initial encounter; F31.9 Bipolar disorder, unspecified; F41.1 Generalized anxiety disorder; F17.210 Nicotine dependence, cigarettes, uncomplicated; Z79.84 Long term (current) use of oral hypoglycemic drugs; Z80.0 Family history of malignant neoplasm of digestive organs; Z91.5 Personal history of self-harm
CPT/HCPCS: 36600; 70450; 70551; 71045; 74160; 76937; 80048; 80053; 80307; 81001; 82140; 82550; 82805; 82948; 83605; 83690; 83735; 84100; 84484; 85025; 85610; 85730; 87040; 87804; 88305; 88312; 93005; 94150; J1815; J3480; J7030; J7040; Q9963; Q9967